=== PATIENT | male | born 1990 | race Hispanic/Latino ===

== ENCOUNTER 2024-12-16 12:19 | Emergency (ER) | payer OTHER, SELFPAY ==
[2024-12-16] VITALS (31 sets, daily range): BP systolic 131–146; BP diastolic 85–100; PULSE 65–79; RESP 16–20; TEMP 36.5–36.9; O2SAT 97–100
--- NOTE | ~2024-12-16 | CT_ITS ---
EXAMINATION: CT abdomen pelvis w con DATE: 12/16/2024 17:26 INDICATION: epigastric abd pain, N/V/D TECHNIQUE: Computed tomography (CT) of the abdomen and pelvis was performed with 100 mL Omnipaque-350 intravenous contrast. Automated exposure control and iterative reconstruction technique were employe d. The dose-length product was 436.45 mGy-cm. COMPARISON: None. FINDINGS: Lower thorax: Coronary artery calcification. Liver: Right lobe hemangioma. Biliary/Gallbladder: Gallbladder is normal. No bile duct dilation. Pancreas: No mass or duct dilation. Spleen: Normal. Adrenals:No mass. Kidneys: No suspicious mass, obstructing stone, or hydronephrosis. GI tract: Mild distal esophageal and moderate antral wall edema. No small or large bowel dilation. No rmal appendix. Diverticulosis without diverticulitis. Mesentery/Peritoneum: No ascites, mass, or free air. Retroperitoneum: No mass. Pelvis: Pelvic organs are within normal limits. Soft Tissues: Small uncomplicated fat-containing umbilical and bilateral inguinal hernias. Bones: No acute osseous finding. IMPRESSION: Coronary artery calcification, to a degree greater than expected for age. Mild esophagitis. Moderate antral gastritis. Extensive diverticulosis without CT evidence of diverticulitis. Reviewed, dictated and finalized at location K.
--- NOTE | 2024-12-16 13:39 | ED.ABDPAIN ---
HPI - Abdominal Pain General Chief Complaint: Abdominal Pain Stated Complaint: Abd pain, N/V/D Time Seen by Provider: 12/16/24 13:09 History of Present Illness HPI narrative: 34-year-old male with a past medical history including hypertension and hyperlipidemia presenting to the emergency room with epigastric abdominal pain, nausea vomiting as well as body aches and headache for last 2 days. Family members have been sick with nausea and vomiting. Patient denies any chest pain shortness a breath. States that his symptoms have been going on for last 2 days but today he got worsening epigastric abdominal pain. Endorses taking NSAIDs for his headache as well as social alcohol use but no history of alcoholism. Denies any abdominal surgical history. No history of gallbladder disease or gallstones. Related Data Allergies Allergy/AdvReac Type Severity Reaction Status Date / Time No Known Allergies Allergy Verified 12/16/24 12:20 Review of Systems Review of Systems: As reviewed above in HPI Exam Narrative: GENERAL: [Well-appearing, well-nourished, and in no acute distress.] HEAD: [Normocephalic, atraumatic.] EYES: [PERRLA and EOMI.] ENT: Nares clear, no rhinorrhea or epistaxis. Mucous membranes moist. NECK: Supple. CHEST: [Clear to auscultation. No respiratory distress.] HEART: [Regular rate and rhythm]. No murmur heard. [Normal peripheral pulses.] ABDOMEN: [Soft, nondistended], tender to palpation in the epigastrium, negative Mcnally sign, [No rigidity or guarding] EXTREMITIES: Normal range of motion. [No edema.] SKIN: Warm, dry, no rash. NEURO: [No focal deficits]. Alert and oriented [x3.] PSYCH: [Normal mood and affect.] Course Vital Signs Vital signs: Vital Signs Temperature 36.5 C 12/16/24 12:28 Pulse Rate 79 12/16/24 12:28 Respiratory Rate 20 12/16/24 12:28 Blood Pressure 146/100 H 12/16/24 12:28 Pulse Oximetry 98 12/16/24 12:28 Oxygen Delivery Room Air 12/16/24 12:28 Temperature 36.9 C 12/16/24 13:14 Pulse Rate 66 12/16/24 16:45 Respiratory Rate 18 12/16/24 13:14 Blood Pressure 134/87 12/16/24 16:46 Pulse Oximetry 100 12/16/24 19:22 Oxygen Delivery Room Air 12/16/24 12:28 MDM - Abdominal Pain MDM Narrative Medical decision making narrative: 34-year-old male with a past medical history including hypertension hyperlipidemia presenting with epigastric abdominal pain associated nausea vomiting diarrhea and body aches for 2 days. He is otherwise well-appearing not any acute distress and has normal vital signs without any tachycardia, fever or hypoxia. Family members have had recent diarrheal illness as well. He has a soft nondistended abdomen with minimal tenderness in the epigastrium. He is otherwise not any acute distress. Considerations presently are for gastritis, gastroenteritis, peptic ulcer disease, cholecystitis, cholelithiasis, COVID or influenza. Workup was ordered including CBC, CMP, lipase. Patient will be treated symptomatically and re-evaluated. He was given a combination of Pepcid, Toradol, Maalox and Zofran. Fluid bolus provided. Patient was re-evaluated and still having some pain for which morphine was provided as well as Protonix. He had improvement afterwards. Reassuring vital signs and workup. Workup shows no leukocytosis or anemia. Normal platelet count. Electrolytes largely within normal limits, normal creatinine, normal glucose, normal LFTs. Normal lipase. Urinalysis with some ketosis but no signs of infection. Negative viral panel. CT of the abdomen and pelvis was ordered secondary to patient's pain requiring morphine. CT shows esophagitis and gastritis, extensive diverticulosis without diverticulitis as well as some coronary artery calcification. An EKG was obtained at this time which shows no acute occlusive event or concerning features. Given patient's improvement in pain control and otherwise unremarkable workup he is safe and stable for discharge home at this time with prescription medications in controls gastritis and esophagitis symptoms. Patient was given return precautions and PCP follow-up instructions. Medical Records Attestation: I reviewed the patient's medical records. Lab Data Attestation: I reviewed the patient's lab results. 12/16/24 13:21 12/16/24 13:21 Labs: Lab Results 12/16/24 12/16/24 12/16/24 Range/Units 13:21 13:32 13:51 WBC 5.6 (4.5-10.0) K/mm3 RBC 4.75 (4.6-6.20) M/mm3 Hgb 15.0 (14.0-18.0) g/dL Hct 42.9 (42.0-52.0) % MCV 90.3 (80-100) fl MCH 31.6 (26-34) pg MCHC 35.0 (32-36) g/dl RDW 12.6 (11.5-14.5) % Plt Count 240 (150-375) k/mm3 MPV 10.2 (7.4-10.4) fl Immature Gran % (Auto) 0.4 (0-0.5) % Neut % (Auto) 83.4 H (45.5-73.1) % Lymph % (Auto) 12.2 L (18.3-44.2) % [place] % (Auto) 3.8 (2.6-8.5) % Eos % (Auto) 0.0 (0-4.4) % Baso % (Auto) 0.2 (0.2-1.2) % Lymph # (Auto) 0.68 L (0.9-3.2) K/mm3 [place] # (Auto) 0.2 (0.1-0.6) K/mm3 Eos # (Auto) 0.0 (0-0.3) K/mm3 Baso # (Auto) 0.0 (0.0-0.1) K/mm3 Abs Immat Gran (auto) 0.02 (0.00-0.031) K/mm3 Absolute Neuts (auto) 4.7 (1.3-6.7) K/mm3 Absolute Nucleated RBC 0.000 (0.0-0.012) K/mm3 Nucleated RBC % 0.0 (0.0-0.2) % Sodium 137 (137-145) mmol/L Potassium 3.7 (3.4-5.0) mmol/L Chloride 97 L (98-107) mmol/L Carbon Dioxide 27 (22-30) mmol/L Anion Gap 13 H (4-12) mmol/L BUN 22 H (9-20) mg/dL Creatinine 1.06 (0.7-1.3) mg/dL Estim Creat Clear Calc 79 ml/min Estimated GFR > 60 (59 - ) Glucose 144 H (65-110) mg/dL Calcium 9.6 (8.4-10.2) mg/dL Total Bilirubin 1.0 (0.2-1.3) mg/dL AST 32 (17-59) U/L ALT 31 (6-50) U/L Alkaline Phosphatase 73 (38-126) U/L Total Protein 9.0 H (6.3-8.2) g/dL Albumin 5.0 (3.5-5.1) g/dL Lipase 37 (23-300) U/L Urine Color Yellow (Yellow) Urine Appearance Clear (Clear) Urine pH 5.5 (5.0-9.0) Ur Specific [place] 1.032 (1.001-1.035) Urine Protein 1+ H (Negative) mg/dL Urine Glucose (UA) Negative (Negative) mg/dL Urine Ketones 2+ H (Negative) mg/dL Ur Blood (Man) Negative (Negative) Urine Nitrate Negative (Negative) Urine Bilirubin Negative (Negative) Urine Urobilinogen 0.2 (<2.0) mg/dL Add Ur Microanalysis Reviewed Leukocyte Esterase Rfl Negative (Negative) THEA/UL Urine RBC 6-10 H (0-2) /hpf Urine WBC 0-5 (0-3) /hpf Ur Squamous Epith Cells None seen (Few) /hpf Urine Bacteria None seen /hpf Urine Casts 0-2 Influenza A (RT-PCR) Negative (Negative) Influenza B (RT-PCR) Negative (Negative) SARS-CoV-2 RNA (RT-PCR) Negative (Negative) Imaging Data Attestation: I personally reviewed and interpreted this imaging study as follows: My impression: Impressions Abdomen/Pelvis CT 12/16/24 17:50 IMPRESSION: Coronary artery calcification, to a degree greater than expected for age. Mild esophagitis. Moderate antral gastritis. Extensive diverticulosis without CT evidence of diverticulitis. Radiologist's impression: ITS Impressions Abdomen/Pelvis CT 12/16/24 17:50 IMPRESSION: Coronary artery calcification, to a degree greater than expected for age. Mild esophagitis. Moderate antral gastritis. Extensive diverticulosis without CT evidence of diverticulitis. ECG Data EKG #1: Interpretation: No ST segment elevations, depressions or contiguous inversions. No previous EKG for comparison. Regular rate, regular rhythm and axis. QTC 377, QRS 101, DE interval 149. Rate of 64 beats per minute. Overall normal sinus rhythm, no signs of acute ischemic event. Discharge Plan Discharge Clinical Impression: Gastritis, Esophagitis Patient Disposition: Home, Self-Care Condition: Stable Instructions: Antibiotic Form, Gastritis (DC), Diet for Stomach Ulcers and Gastritis (ED), Esophagitis (ED) Additional Instructions: Your CT scan shows gastritis and esophagitis which is inflammation and acid buildup in the esophagus and stomach lining. No obstruction process, no infection. you have some coronary artery calcifications but your EKG is reassuring as well as your laboratory studies. We will send you home with a combination medications to try to control the pain in your epigastric region that is likely from your stomach inflammation and stomach acid. Follow-up with regular doctor, you might end up needing to be seen by a international trade manager outpatient if this is persistent. Return with any new or worsening concerns at any time. Patient Language: Citizen Of [place] Prescriptions: New famotidine [Pepcid] 20 mg tablet 20 mg PO BID Qty: 20 0RF alum-mag hydroxide-simeth [Maalox Advanced] 200-200-20 mg/5 mL suspension 15 ml PO QID PRN (Reason: indigestion) Qty: 3000 0RF Rx Instructions: administer between meals and at bedtime ondansetron 4 mg tablet,disintegrating 4 mg PO Q8H PRN (Reason: nausea and vomiting) Qty: 10 0RF pantoprazole [Protonix] 40 mg tablet,delayed release (DR/EC) 40 mg PO HS 28 Days Qty: 28 0RF Follow-up/Referrals: PHYSICIAN NOT ON STAFF,NONSTAFF [Primary Care Provider] - Time of Disposition: 19:57
[2024-12-16 13:44] LABS: Basophils Percent Auto 0.2 % (0.2-1.2); Hematocrit 42.9 % (42.0-52.0); Immature Granulocyte Absolute 0.02 K/mm3 (0.00-0.031); Immature Granulocyte Percent A 0.4 % (0-0.5); Lymphocytes Absolute Auto 0.68 K/mm3 (0.9-3.2); Lymphocytes Percent Auto 12.2 % (18.3-44.2); Mean Corpuscular Hemoglobin 31.6 pg (26-34); Mean Corpuscular Volume 90.3 fl (80-100); Mean Platelet Volume 10.2 fl (7.4-10.4); Monocytes Absolute Auto 0.2 K/mm3 (0.1-0.6); Monocytes Percent Auto 3.8 % (2.6-8.5); Neutrophils Absolute Auto 4.7 K/mm3 (1.3-6.7); Neutrophils Percent Auto 83.4 % (45.5-73.1); Platelet Count Result 240 k/mm3 (150-375); Red Blood Count 4.75 M/mm3 (4.6-6.20); Red Cell Distribution Width 12.6 % (11.5-14.5); White Blood Count 5.6 K/mm3 (4.5-10.0)
[2024-12-16] MEDS: KETOROLAC 15 MG/ML VIAL (*BKC) IV PUSH (13:45)
[2024-12-16] MEDS: FAMOTIDINE 20 MG/2 ML VIAL IV PUSH (13:45)
[2024-12-16] MEDS: MAG HYDROX/AL HYDROX/SIMETH 30 ML UDC PO (13:45)
[2024-12-16] MEDS: ONDANSETRON INJ 4 MG/2 ML VIAL IV PUSH (13:45)
[2024-12-16] MEDS: LACTATED RINGERS 1,000 ML 999 ML IV CONT (13:50)
[2024-12-16 14:16] LABS: Influenza A QL RT-PCR Negative (Negative); Influenza B QL RT-PCR Negative (Negative); SARS-CoV-2 RNA PCR Negative (Negative)
[2024-12-16 14:26] LABS: Add Urine Microscopic? YES; Appearance Urine Clear (Clear); Bacteria Urine None Seen /hpf; Bilirubin Urine Negative (Negative); Blood Urine Negative (Negative); Color Urine Yellow (Yellow); Glucose Urine UA Negative (Negative); Ketones Urine 2+ mg/dL (Negative); Leukocyte Esterase Ur Negative LEU/UL (Negative); Need Manual Microscopic Reviewed; Nitrate Urine Negative (Negative); Non Pathogenic Casts 0-2; Protein Urine 1+ mg/dL (Negative); Specific Grav Ur 1.032 (1.001-1.035); Squamous Epithelial Cell Urine None Seen /hpf (Few); Urobilinogen Urine 0.2 mg/dL (<2.0); WBC Urine 0-5 /hpf (0-3); pH Urine 5.5 (5.0-9.0)
[2024-12-16 14:31] LABS: Alanine Aminotransferase 31 U/L (6-50); Alkaline Phosphatase 73 U/L (38-126); Anion Gap 13 mmol/L (4-12); Aspartate Amino Transferase 32 U/L (17-59); Blood Urea Nitrogen 22 mg/dL (9-20); Calcium 9.6 mg/dL (8.4-10.2); Carbon Dioxide 27 mmol/L (22-30); Chloride 97 mmol/L (98-107); Estimated CRCL calculation 79 ml/min; Estimated Glomerular Filt Rate > 60; Glucose 144 mg/dL (65-110); Lipase 37 U/L (23-300); Potassium 3.7 mmol/L (3.4-5.0); Sodium 137 mmol/L (137-145)
[2024-12-16] MEDS: MORPHINE SULFATE (*CRX) 4 MG/ML INJ IV PUSH ×2 (14:37→16:53)
--- OUTSIDE RECORDS SUMMARY | 2024-12-16 16:33 | XMS_ITS | Continuity of Care Document ---
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 It does not include entries that were removed or entered in error. 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) Active 08/30/2024 Diagnosis 0055C-37 5t h [facility] Bilateral myopia of eyes Active 05/10/2017 Condition 0055C-375t h [facility] Bilateral regular astigmatism Active 05/10/2017 Condition 0055C-375t h [facility] Myopia Active 05/10/2017 Condition 0055C-375t h [facility] Regular astigmatism Active 05/10/2017 Condition 0055C-375t h [facility] Regular astigmatism, bilateral Active 05/10/2017 Condition DoD Myopia, bilateral Active 05/10/2017 Condition D oD Alcohol consumption screening Active Condition 0055C-375t h [facility] ASSESSMENT, POST DEPLOYMENT, DOCUMENTED ON [id number] (PDHRA) Active Condition 0055C-375t h [facility] Astigmatism Active Condition 0055C-375t h [facility] [place] I diagnosis Active Condition 0055C -375t h [facility] [place] II diagnosis Active Condition 0055 C-375t h [facility] Blurry vision Active Condition 0055C-37 5t h [facility] Chondromalacia of patella Active Condition 0055C-375t h [facility] Consultation Active Condition 0055C-375 t h [facility] Cough Active Condition 0055C-375t h [facility] Disorder of refraction Active Condition 0055C-375t h [facility] Elevated blood pressure Active Condition 0055C-375t h [facility] Environmental allergy Active Condition 0055C-375t h [facility] Gastroenteritis Active Condition 0055C- 375t h [facility] Hearing examination Active Condition 00 55C-375t h [facility] History and physical examination, occupation Active Condition 0055C-375t h [facility] History of multiple allergies Active Condition 0055C-375t h [facility] Knee pain Active Condition 0055C-375t h [facility] Laboratory test Active Condition 0055C- 375t h [facility] Low back pain Active Condition DoD Nicotine dependence Active Condition 00 55C-375t h [facility] Overweight Active Condition 0055C-375t h [facility] Pain of joint of knee Active Condition 0055C-375t h [facility] Patient condition assessed Active Condition 5C-375t h [facility] Patient education Active Condition 0055 C-375t h [facility] Psychological finding Active Condition 5C-375t h [facility] Segmental and somatic dysfunction Active Condition 0055C -375t h [facility] Sprain of left ankle Active Condition 0 055C-375t h [facility] Upper respiratory infection Active Condition 0055C-375t h [facility] Segmental and somatic dysfunction of sacral region Active Condition DoD Segmental and somatic dysfunction of lumbar region Active Condition DoD Segmental and somatic dysfunction of thoracic region Active Condition DoD Segmental and somatic dysfunction of pelvic region Active Condition DoD 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 Active Condition DoD ankle sprain left Active Condition DoD 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 DoD 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 documented on [id number] Active Condition DoD nicotine dependence Active Condition Do D overweight Active Condition DoD gastroenteritis Active Condition DoD open wound of the head - scalp Inactive Condition DoD astigmatism regular Active Condition Do D visit for: ears / hearing 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 DoD visit for: occupational health / fitness 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 DoD Outpatient Physician Consultation Active Condition DoD joint pain, localized in the knee Active Condition DoD Blood Pressure Isolated Elevated Active Condition DoD dermatophytosis tinea capitis Inactive Condition [facility] patellar chondromalacia Active Condition DoD location of accident - home Inactive Condition DoD accident caused by object Inactive Condition DoD crush injury right hand Inactive Condition DoD open wound of the upper extremity Inactive Condition DoD refractive error - myopia Active Condition DoD astigmatism Active Condition DoD assessment of patient condition work-related Active Condition DoD refractive error Active Condition DoD visit for: services physical pre-deployment Active Condition DoD open wound fingers left index Inactive Condition [facility] visit for: administrative purpose Active Condition DoD pharyngitis Inactive Condition DoD cough Active Condition DoD Vomiting Inactive Condition DoD conjunctivitis acute right eye Inactive Condition DoD visit for: laboratory Inactive Condition DoD Laboratory Studies Active Condition DoD visit for: services physical Active Condition DoD no psychiatric diagnosis on axis II Active Condition DoD no psychiatric diagnosis or condition on axis I Active Condition DoD visit for: screening exam alcoholism Active Condition DoD upper respiratory infection Active Condition DoD multiple environmental allergies Active Condition DoD Patient Education Active Condition DoD Medications Combined list of outpatient medications from Department of Defense and 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Medications provided include 1) outpatient medications from the last 15 months, and 2) patient-reported medications. Medication Details Route Status Patient Instructions Prescription Expires Prescription Number Last Dispense Date Ordering Provider Order Date Order Qty Source Cipro 500 mg or Placebo Tablet Oral Finish the prescrip tion.Do not take with milk, antacids , or iron.Dc e with plenty of water.Av oid exposure to sun.Chec k with your doctor before becoming . 11/05/2024 [id number] 4 [address] [facility] Blake [facility] ([facility]) CRESTOR (BRAND) 20 MG ORAL TAB Do not take with milk, antacids , or iron.Dc e or use exactly as directed .Do not take if . Active 12/25/2024 [id number] 4 [address] [place] [address] Blake [facility]) CRESTOR (BRAND) 20 MG ORAL TAB Do not take with milk, antacids , or iron.Dc e or use exactly as directed .Do not take if . 02/12/2024 [id number] 3 [address] [place] [address] Blake DOVER [facility]) Potassium Iodide (Iosat Eq.) Tablet 130 mg Miscellaneo us Check with your doctor before becoming . 11/05/2024 [id number] 4 [address] [place] [address] Blake [facility]) Pyridostigm ine [place] (P-Tabs) Tablet 30 mg Oral Check with your doctor before becoming .Store in original package. 11/05/2024 [id number] 4 [address] [place] [address] Blake [facility] ([facility]) Allergies, Adverse Reactions, Alerts Combined list of allergies from Department of Defense and 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 It does not include entries that were removed or entered in error. Substance Category Reaction Severity Reaction type Status Date Reported Comments Source No Known Allergies Drug allergy (disorder) active 06/19/[address] [place] [address] Immunizations Combined list of available immunizations from the Department of Defense and 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 complet ed anthrax vaccine 10/25/23 Given 0055C-3 [facility] measles/mumps /rubella virus vaccine 2023 ETHANJPOCKLIN GTON Shoul maya, right (delt oid) [id number] Merck & Company Inc complet ed measles/m umps/rube lla virus vaccine 10/25/23 Given 0055C-3 [facility] influenza virus vaccine, inactivated 2022 ETHANJPOCKLIN GTON Shoul maya, right (delt oid) [id number] 150 [employer] complet ed influenza virus vaccine, inactivat ed 07/25/23 Given 0055C-3 [facility] influenza virus vaccine, inactivated 2021 NERY Abernathy maya, left (delt oid) [id number] 150 [employer] Joaquin complet ed influenza virus vaccine, inactivat ed 10/05/22 Given 0117C-A F-ASU-[address] [facility] land influenza, injectable, quadrivalent- pf 2020 FANNY CEE [id number] 150 complet ed Result Comment: Route: Unknown Manufactu rer: [facility] ([facility] 0055C-3 [facility] Influenza, injectable, quadrivalent, preservative free 1 2020 [id number] 150 [facility] ([facility]) complet ed Influenza , injectabl e, quadrival ent, preservat sunny free DoD COVID Vaccine Pfizer 2020 [id number] PFI[employer] complet ed COVID Vaccine Pfizer 01/06/21 Given Ambulat ory Pharmac y SARS-COV-2 (COVID-19) vaccine, mRNA, spike protein, LNP, preservative free, 30 mcg/0.3mL dose 2 2020 [id number] Pfizer, Inc (PFR) complet ed SARS-COV- 2 (COVID-19 ) vaccine, mRNA, spike protein, LNP, preservat sunny free, 30 mcg/0.3mL dose DoD COVID Vaccine Pfizer 2020 [id number] 208 PFIZER complet ed COVID Vaccine Pfizer 12/16/20 Given Ambulat ory Pharmac y SARS-COV-2 (COVID-19) vaccine, mRNA, spike protein, LNP, preservative free, 30 mcg/0.3mL dose 1 2020 [id number] 208 Pfizer, Inc (PFR) complet ed SARS-COV- 2 (COVID-19 ) vaccine, mRNA, spike protein, LNP, preservat sunny free, 30 mcg/0.3mL dose DoD influenza virus vaccine, inactivated 2019 [id number] [employer] complet ed influenza virus vaccine, inactivat ed 07/31/20 Given Ambulat ory Pharmac y Influenza, injectable, Madin Pomeroy Canine Kidney, quadrivalent with preservative 1 2019 [id number] 186 [employer] (SEQ) comple t ed Influenza , injectabl e, Madin Pomeroy Canine Kidney, quadrival ent with preservat sunny DoD influenza, injectable, quadrivalent- pf 2018 [id number] 150 [employer] complet ed influenza , injectabl e, quadrival ent-pf 08/29/19 Given Ambulat ory Pharmac y Influenza, injectable, quadrivalent, preservative free 0 2018 [id number] 150 [employer] (SEQ) complet ed Influenza , injectabl e, quadrival ent, preservat sunny free DoD tetanus-dipht h toxoids (Td) adult/adol 2018 Body, whole [id number] 09 [place] [employer] complet ed tetanus-d iphth toxoids (Td) adult/ado l 02/20/19 Given Ambulat ory Pharmac y tetanus and diphtheria toxoids, adsorbed, preservative free, for adult use (2 Lf of tetanus toxoid and 2 Lf of diphtheria toxoid) 1 2018 JAH DOTY [id number] 09 [facility] [employer] ([facility]) complet ed tetanus and diphtheri a toxoids, adsorbed, preservat sunny free, for adult use (2 Lf of tetanus toxoid and 2 Lf of diphtheri a toxoid) DoD influenza, injectable, quadrivalent- pf 2017 [id number] 150 [employer] complet ed influenza , injectabl e, quadrival ent-pf 07/11/18 Given Ambulat ory Pharmac y Influenza, injectable, quadrivalent, preservative free 11 2017 [id number] 150 [employer] (SEQ) comple t ed Influenza , injectabl e, quadrival ent, preservat sunny free DoD influenza, injectable, quadrivalent- pf 2016 [id number] 150 GlaxoSmithKli ne complet ed influenza , injectabl e, quadrival ent-pf 07/11/17 Given Ambulat ory Pharmac y Influenza, injectable, quadrivalent, preservative free 0 2016 [id number] 150 SmithKline (SKB) complet ed Influenza , injectabl e, quadrival ent, preservat sunny free DoD influenza, injectable, quadrivalent 2015 [id number] 158 GlaxoSmithKli ne complet ed influenza , injectabl e, quadrival ent 07/19/16 Given Ambulat ory Pharmac y influenza, injectable, quadrivalent, contains preservative [address] [place] [address] [employer] (B) complet ed influenza , injectabl e, quadrival ent, contains preservat sunny DoD influenza, seasonal, injectable-pf 2014 [id number] 140 CSL Behring complet ed influenza , seasonal, injectabl e-pf 07/14/15 Given Ambulat ory Pharmac y Influenza, seasonal, injectable, preservative free 8 2014 [id number] 140 [facility] [employer] (CSL) complet ed Influenza , seasonal, injectabl e, preservat sunny free DoD influenza, seasonal, injectable-pf 2013 [id number] 140 Novartis Pharmaceutica ls complet ed influenza , seasonal, injectabl e-pf 08/04/14 Given Ambulat ory Pharmac y Influenza, seasonal, injectable, preservative free 7 2013 [id number] 140 Novartis Pharmaceutica l Joaquin. (NOV) complet ed Influenza , seasonal, injectabl e, preservat sunny free DoD typhoid Vi capsular polysaccharid e vac 2012 [id number] 101 sanofi pasteur complet ed typhoid Vi capsular polysacch aride vac 08/05/13 Given Ambulat ory Pharmac y anthrax vaccine 2012 [id number] 24 [employer] complet ed anthrax vaccine 08/05/13 Given Ambulat ory Pharmac y anthrax vaccine 4 2012 [id number] 24 [employer] [place] ([facility]) complet ed anthrax vaccine DoD typhoid Vi capsular polysaccharid e vaccine 2 2012 D1673-7 101 Sanofi Pasteur (PMC) complet ed typhoid Vi capsular polysacch aride vaccine DoD influenza, seasonal, injectable-pf 2012 [id number] 140 sanofi pasteur complet ed influenza , seasonal, injectabl e-pf 05/31/13 Given Ambulat ory Pharmac y Influenza, seasonal, injectable, preservative free 0 2012 [id number] 140 Sanofi Pasteur (PMC) complet ed Influenza , seasonal, injectabl e, preservat sunny free DoD measles virus vaccine 0 2012 05 () Not Given measles virus vaccine DoD rubella virus vaccine 0 2012 06 () Not Given rubella virus vaccine DoD influenza, seasonal, injectable-pf 2011 [id number] 140 sanofi pasteur complet ed influenza , seasonal, injectabl e-pf 06/05/12 Given Ambulat ory Pharmac y Influenza, seasonal, injectable, preservative free 0 2011 [id number] 140 Sanofi Pasteur ([facility]) complet ed Influenza , seasonal, injectabl e, preservat sunny free DoD influenza, seasonal, injectable 2010 [id number] 141 sanofi pasteur complet ed influenza , seasonal, injectabl e 06/22/11 Given Ambulat ory Pharmac y Influenza, seasonal, injectable 4 2010 [id number] 141 Sanofi Pasteur ([facility]) complet ed Influenza , seasonal, injectabl e DoD anthrax vaccine 2010 [id number] 24 [employer] complet ed anthrax vaccine 02/04/11 Given Ambulat ory Pharmac y anthrax vaccine 3 2010 [id number] 24 [employer] [place] (MIP) complet ed anthrax vaccine DoD anthrax vaccine 2009 [id number] 24 [employer] complet ed anthrax vaccine 08/31/10 Given Ambulat ory Pharmac y anthrax vaccine 2 2009 [id number] 24 [employer] [place] (MIP) complet ed anthrax vaccine DoD influenza virus vaccine, live 2009 [id number] 111 [facility] t ed influenza virus vaccine, live 07/21/10 Given Ambulat ory Pharmac y vaccinia (smallpox) vaccine 2009 VV04-00 3A 75 [employer] complet ed vaccinia (smallpox ) vaccine 07/21/10 Given Ambulat ory Pharmac y typhoid Vi capsular polysaccharid e vac 2009 [id number] 101 sanofi pasteur complet ed typhoid Vi capsular polysacch aride vac 07/21/10 Given Ambulat ory Pharmac y anthrax vaccine 2009 [id number] 24 [employer] complet ed anthrax vaccine 07/21/10 Given Ambulat ory Pharmac y anthrax vaccine 1 2009 [id number] 24 [employer] [place] (MIP) complet ed anthrax vaccine DoD vaccinia (smallpox) vaccine 1 2009 VV04-00 3A 75 [facility] complet ed vaccinia (smallpox ) vaccine DoD typhoid Vi capsular polysaccharid e vaccine 1 2009 [id number] 101 Sanofi Pasteur ([facility]) complet ed typhoid Vi capsular polysacch aride vaccine DoD influenza virus vaccine, live, attenuated, for intranasal use 1 2009 [id number] 111 [employer] (MED) complet ed influenza virus vaccine, live, attenuate d, for intranasa l use DoD Novel influenza-H1N 1-09, injectable 2009 [id number] 127 Novartis Pharmaceutica ls complet ed Novel influenza -S2V5-54, injectabl e 10/20/09 Given Ambulat ory Pharmac y Novel influenza-H1N 1-09, injectable 1 2009 [id number] 127 Novartis [employer] Joaquin. (NOV) complet ed Novel influenza -R4U9-43, injectabl e DoD influenza virus vaccine, live 2008 [id number] 111 [employer] comple t ed influenza virus vaccine, live 08/05/09 Given Ambulat ory Pharmac y influenza virus vaccine, live, attenuated, for intranasal use 1 2008 [id number] 111 [employer] (MED) complet ed influenza virus vaccine, live, attenuate d, for intranasa l use DoD Hep A, pediatric, unspecified formul 2008 [id number] [id number] 31 GlaxoSmithKli ne complet ed Hep A, pediatric , unspecifi ed formul 07/30/09 Given Ambulat ory Pharmac y hepatitis A vaccine, pediatric dosage, unspecified formulation 2 2008 [id number] 7BA 31 SmithKline (SKB) complet ed hepatitis A vaccine, pediatric dosage, unspecifi ed formulati on DoD Hep A, pediatric, unspecified formul 2008 [id number] 0AA 31 GlaxoSmithKli ne complet ed Hep A, pediatric , unspecifi ed formul 01/28/09 Given Ambulat ory Pharmac y measles, mumps and rubella virus vaccine 1 2008 03 () Not Given measles, mumps and rubella virus vaccine DoD varicella virus vaccine 1 2008 21 () Not Given varicella virus vaccine DoD hepatitis A vaccine, pediatric dosage, unspecified formulation 1 2008 [id number] 0AA 31 [employer]Kline (SKB) complet ed hepatitis A vaccine, pediatric dosage, unspecifi ed formulati on DoD hepatitis B vaccine, unspecified formulation 1 2008 45 () Not Given hepatitis B vaccine, unspecifi ed formulati on DoD tuberculin purified protein derivative 2008 [id number] 96 sanofi pasteur complet ed tuberculi n purified protein derivativ e 01/25/09 Given Ambulat ory Pharmac y meningococcal A,C,Y,W-135 (MCV4P) 2008 [id number] 114 sanofi pasteur complet ed meningoco ccal A,C,Y,W-1 35 (MCV4P) 01/22/09 Given Ambulat ory Pharmac y poliovirus vaccine, inactivated 2008 [id number] 10 sanofi pasteur complet ed polioviru s vaccine, inactivat ed 01/22/09 Given Ambulat ory Pharmac y tetanus, diphtheria, acellular pertu is 2008 [id number] 1AB 115 [facility] tetanus, diphtheri a, acellular pertussis 01/22/09 Given Ambulat ory Pharmac y influenza virus vaccine,split 2008 [id number] 15 sanofi pasteur complet ed influenza virus vaccine,s plit 01/22/09 Given Ambulat ory Pharmac y poliovirus vaccine, inactivated 1 2008 [id number] 10 Sanofi Pasteur ([facility]) complet ed polioviru s vaccine, inactivat ed DoD influenza virus vaccine, split virus (incl. purified surface antigen)-reti red CODE 1 2008 [id number] 15 Sanofi Pasteur ([facility]) complet ed influenza virus vaccine, split virus (incl. purified surface antigen)- retired CODE DoD meningococcal polysaccharid e (groups A, C, Y and W-135) diphtheria toxoid conjugate vaccine (MCV4P) 1 2008 [id number] 114 Sanofi Pasteur ([facility]) complet ed meningoco ccal polysacch aride (groups A, C, Y and W-135) diphtheri a toxoid conjugate vaccine (MCV4P) DoD tetanus toxoid, reduced diphtheria toxoid, and acellular pertu is vaccine, adsorbed 1 2008 [id number] 115 [facility] (SKB) complet ed tetanus toxoid, reduced diphtheri a toxoid, and acellular pertussis vaccine, adsorbed DoD Results Combined list of recent chemistry, hematology and other laboratory results from Department of Defense and Veterans Affairs, ranging from 15 months to all on record, depending upon the facility. Order Name Results Value Reference Range Date Interpretation Specimen Comments Source Miscellan eous Sendouts Repository Sample Received ( 4 7:40 AM) 08/08 N 5600A-U [facility] Chemistry Albumin 4.70 g/dL 3.50 - 5.20 12/28 N 0055A-3 [facility] [place] Chemistry Alk Phos 72 U/L 40 - 150 12/28 N 0055A-3 [facility] [place] Chemistry ALT 33 U/L 5 - 55 12/28 N 0055A-3 [facility] Chemistry AST 26 U/L 5 - 34 12/28 N 0055A-[address] [place] [address]- [place] Chemistry Bilirubin Direct 0.2 mg/dL 0.1 - 0.5 12/28 N 0055A-3 [facility] [place] Chemistry Bilirubin Total 0.7 mg/dL 0.2 - 1.2 12/28 N 0055A-3 [facility] [place] Chemistry Protein Total 8.6 g/dL 6.4 - 8.3 12/28 H 5A-3 [facility] Chemistry Ur Microalbumi n 5 mg/L 12/28 N Interpretiv e Data: To minimize intra-indiv idual variation, analysis of three random urine samples collected over the course of a week has also been recommended . 0055A-3 [facility] Chemistry Ur Microalb/Ur Creat Ratio 4 mg/gCr 12/28 N 0055A-3 [facility] [place] Chemistry Ur Creat 125 mg/dL 12/28 0055A-3 [facility] [place] Hematolog y Neutro Absolute 2.5 x10^3/mc L 2.0 - 7.0103 12/28 N 0055A-3 [facility] [place] Hematolog y Monocyte % Auto 6 % 1 - 12 12/28 N 0055A-3 [facility] Hematolog y Neutrophil % Auto 54.9 % 46.0 - 77.0 12/[address] [place] [address] Hematolog y Eosinophil % Auto 1 % 0 - 5 12/28 N [facility] Hematolog y Eos Absolute 0.0 x10^3/mc L 0.0 - 0.7103 12/[address] [place] [address]- [place] Hematolog y Lymph Absolute 1.7 x10^3/mc L 1.2 - 4.0103 12/[address] [place] [address]- [place] Hematolog y Lymphocyte % Auto 37.3 % 20.0 - 40.0 12/[address] [place] [address] Hematolog y [place] Absolute 0.3 x10^3/mc L 0.2 - 0.8103 12/[address] [place] [address] Hematolog y Basophil % Auto 0.4 % 0.0 - 2.5 12/[address] [place] [address]- [place] Hematolog y Baso Absolute 0.0 x10^3/mc L 0.0 - 0.1103 12/[address] [place] [address] Chemistry HDL Cholesterol 59 mg/dL 40 - 59 12/28 N Interpretiv e Data: HDL (HIGH DENSITY LIPOPROTEIN ): ADULTS: Low: < 40 mg/dL High: >/= 60 mg/dL AGES 0 -19: Low: < 40 mg/dL Borderline Low: 40 - 45 mg/dL Acceptable: > 45 mg/dL [address] [place] [address] Chemistry Cholesterol Total 217 mg/dL 12/28 H Interpretiv e Data: According to the [employer] : AGES 0-19: Desirable: < 170 mg/dL Borderline High: 170-199 mg/dL High Blood Cholesterol : >/= 200 mg/dL ADULTS: Desirable < 200 mg/dL Borderline High: 200-239 mg/dL High Blood Cholesterol : >/= 240 mg/dL [address] [place] [address] Chemistry LDL 130 mg/dL 100 - 130 12/28 N Interpretiv e Data: AGES 0-19: Desirable: < 110 mg/dL Borderline High: 110-129 mg/dL High: >/= 130 mg/dL ADULTS: Desirable: <100 mg/dL Near/above optimal: 100-130 mg/dL Borderline High: 131-159 mg/dL High: 160-189 mg/dL Very High: 190 mg/dL [address] [place] [address] Chemistry Chol/HDL 4 mg/dL 12/[address] [place] [address] Chemistry LDL/HDL 2 12/[address] [place] [address] Chemistry Triglycerid es 149 mg/dL 7 - 149 12/28 N Interpretiv e Data: AGES 0-9: Desirable: < 75 mg/dL Borderline High: 75-99 mg/dL High: >/= 100 mg/dL AGES 10-19: Desirable: < 90 mg/dL Borderline High: 90-129 mg/dL High: >/= 130 mg/dL ADULTS: Desirable: < 150 mg/dL Borderline High: 150-199 mg/dL High: >/= 240 mg/dL Very High: >/= 500 mg/dL [address] [place] [address] Chemistry eAvg Glucose 103 mg/dL 12/[address] [place] [address] Chemistry Hemoglobin A1c 5.2 % 4.0 - 5.6 12/28 N Interpretiv e Data: Normal: 4.0 - 5.6% Increased Risk: 5.7 - 6.4% Diabetic Range: 6.5% For patients without diabetes, the normal range for the hemoglobin A1c test is between 4% and 5.6%. Hemoglobin A1c levels between 5.7% and 6.4% indicate increased risk of diabetes, and levels of 6.5% or higher indicate diabetes. Because studies have repeatedly shown that out-of-cont rol diabetes results in complicatio ns from the disease, the goal for people with diabetes is a hemoglobin A1c less than 7%. The higher the hemoglobin A1c, the higher the risks of developing complicatio ns related to diabetes. If confirmatio n is needed, consider recalling the patient and ordering Hemoglobin Electrophor esis. [address] [place] [address] Chemistry Vitamin D 25 OH 17.3 ng/mL 30.0 - 100.0 12/28 L Interpretiv e Data: Classificat ion of Vitamin D Status: Deficient: <20 ng/mL Insufficien t: 20-29 ng/mL Sufficient: 30-100 ng/mL Possible Toxicity: >100 ng/mL This assay is for the quantitativ e determinati on of total 25 (OH) vitamin D. It is intended as an aid in the determinati on of vitamin D sufficiency . Results should always be interpreted in conjunction with the patient's medical history, clinical presentatio n, and other findings. Testing performed by [facility] k[facility] ce. 5600A-U MIRANDASASade EPILAB Urinalysi s UA Nitrite Negative (12/29/23 9:05 AM) 12/28 N 0055A-[address] [place] [address]- [facility] Urinalysi s UA pH 7.0 *NA* (12/29/23 9:05 AM) 5 - 8 12/28 0055A-3 [facility] Urinalysi s UA Leuk Esterase Negative (12/29/23 9:05 AM) 12/28 N 0055A-[address] [place] [address] Urinalysi s UA Protein Negative mg/dL 12/28 N 0055A-[address] [place] [address]- [facility] Urinalysi s UA RBC TNP 12/28 0055A-[address] [place] [address]- [facility] Urinalysi s UA WBC TNP 12/28 0055A-[address] [place] [address]- [facility] Urinalysi s UA Spec [place] 1.015 1.001 - 1.035 12/28 N 0055A-[address] [place] [address] Urinalysi s UA Urobilinoge n 0.2 E.U./dL 0.2 - 1.0.. 12/28 N 0055A-[address] [place] [address]- [facility] Urinalysi s UA Bili Negative (12/29/23 9:05 AM) 12/28 N 0055A-[address] [place] [address]- [facility] Urinalysi s UA Clarity Clear *NA* (12/29/23 9:05 AM) 12/28 0055A-[address] [place] [address]- [facility] Urinalysi s UA Color Yellow *NA* (12/29/23 9:05 AM) 12/28 0055A-[address] [place] [address] Urinalysi s UA Blood Negative (12/29/23 9:05 AM) 12/28 N 0055A-3 [facility] NASRA Lozano Urinalysi s UA Glucose Negative mg/dL 12/28 N 0055A-3 [facility] MEDKA[facility]- [place] Urinalysi s UA Ketones Negative mg/dL 12/28 N 0055A-3 [facility] MIGUEL- [facility] Hematolog y MCHC 34.7 g/dL 33.0 - 36.5 12/28 N 0055A-[address] [place], [place] [address]KANA- Balke Hematolog y MCV 89 fL 80 - 97 12/28 N 0055A-[address] [place] [address]- [facility] Hemat[facility] RBC 5.0 x10^6/mc L 4.0 - 5.6106 12/28 N 0055A-3 [facility] MIGUEL- [facility] Hematolog y RDW 12.0 % 11.0 - 14.9 12/28 N 0055A-[address] [place], [place] [address]BRANDT Lozano Hematolog y MPV 9.8 fL 7.4 - 10.4 12/28 N 0055A-[address] [place], [place] [address]Kaleb Lozano Hematolog y Platelets 258.0 x10^3/mc L 150.0 - 450.0103 12/28 N 0055A-[address] [place], [place] [address]KANA- [facility] Hematolog y Hematocrit 45 % 40 - 49 12/28 N 0055A-[address] [place], [place] [address]Kaleb Lozano Hematolog y Differentia l? Auto (12/29/23 9:05 AM) 12/28 N 0055A-3 [facility] NASRA Lozano Hematolog y MCH 31 pg 28 - 33 12/28 N 0055A-[address] [place] [address] [facility] Hematolog y Hemoglobin 15.6 g/dL 13.0 - 16.3 12/28 N 0055A-[address] [place], [place] [address]Kaleb Lozano Hematolog y WBC 4.6 x10^3/mc L 4.0 - 11.0103 12/28 N 0055A-[address] [place] [address] [facility] Chemistry BUN/Creat Ratio 19 mg/dL 12 - 20 12/28 N 0055A-[address] [place] [address] [facility] Chemistry Calcium 10.3 mg/dL 8.4 - 10.2 12/28 H 0055A-[address] [place] [address] [facility] Chemistry Chloride 102 mmol/L 98 - 107 12/28 N 0055A-[address] [place] [address] Chemistry CO2 26 mmol/L 22 - 29 12/28 N 0055A-[address] [place] [address] Chemistry Creatinine Level 0.80 mg/dL 0.72 - 1.25 12/28 N 0055A-[address] [place] [address] Chemistry Glucose Lvl 95 mg/dL 74 - 99 12/28 N 0055A-[address] [place] [address] Chemistry Potassium Lvl 4.0 mmol/L 3.5 - 5.1 12/28 N 0055A-[address] [place] [address] Chemistry AGAP 10.00 0.00 - 15.00 12/28 N -[address] [place] [address] Chemistry Albumin 4.70 g/dL 3.50 - 5.20 12/28 N -[address] [place] [address] Chemistry Sodium 138 mmol/L 136 - 145 12/28 N -[address] [place] [address] Chemistry Alk Phos 72 U/L 40 - 150 12/28 N -[address] [place] [address] Chemistry Protein Total 8.6 g/dL 6.4 - 8.3 12/28 H 5A-[address] [place] [address] Chemistry ALT 33 U/L 5 - 55 12/28 N -[address] [place] [address] Chemistry AST 26 U/L 5 - 34 12/28 N -[address] [place] [address] Chemistry Bilirubin Total 0.7 mg/dL 0.2 - 1.2 12/28 N -[address] [place] [address] Chemistry BUN 15 mg/dL 8 - 26 12/28 N 0055A-[address] [place] [address] Chemistry eGFR CKD EPI 120 mL/min/1 .73_m2 12/28 Interpretiv e Data: Estimated Glomerular Filtration Rate (eGFR) calculated using the 2020 Chronic Kidney Disease-Epi demiology (CKD-EPI) Collaborati on creatinine equation; units of measure are mL/min/1.73 m2. Results are only valid for adults (>=18 years) whose serum creatinine is in steady state. eGFR calculation s are not valid for patients with acute kidney injury and for patients on dialysis. Creatinine- based estimates of kidney function may also be inaccurate in patients with reduced creatinine generation due to decreased muscle mass (e.g., malnutritio n, severe hypoalbumin emia, sarcopenia, chronic neuromuscul ar disease, amputations , severe heart failure or liver disease) and in patients with increased creatinine generation due to increased muscle mass (e.g., muscle builders, anabolic steroids) or increased dietary intake. CKD is diagnosed based on abnormaliti es of kidney structure or function, present for >3 months, with implication s for health and disease. CKD is classified and staged based on cause, eGFR and albuminuria (quantified as urine albumin to creatinine ratio). An eGFR >60 mL/min/1.73 m2 in the absence of increased urine albumin excretion or structural abnormaliti es does not CKD. eGFR provides only an estimate of measured GFR within +/- 30% for most patients. As mentioned, nutritional status and muscle mass, among many factors, may lead to inaccuracy in the estimate. Consider ordering the creatinine- cystatin C panel if better accuracy is needed for clinical decision-shelli loving. eGFR (mL/min/1.7 3 m2) CKD stage Interpretat ion Normal 60-89 Mild decrease 45-59 Mild to moderate decrease 30-44 Moderate to severe decrease 15-29 Severe decrease <15 Kidney failure 0055A-3 [facility] [place] Immunolog y/Serolog y Thyroid Peroxidase Ab <15 IU/mL 12/28 N Interpretiv e Data: Values above 35 IU/mL are generally associated with autoimmune thyroiditis , but elevations are also seen in other autoimmune diseases. In patients with subclinical hypothyroid ism, the presence of thyroperoxi dase (TPO) antibodies predicts a higher risk of developing overt hypothyroid ism, 4.3% per year versus 2.1% per year in antibody-ne gative individuals . Furthermore , it raises the concern that such patients may be at increased risk of developing other autoimmune diseases, such as adrenal insufficien cy and type 1 diabetes. The frequency of detectable anti-TPO observed in nonimmune thyroid disease is similar to the 10% to 12% observed in a healthy population with normal thyroid function. There is a good association between the presence of autoantibod ies against TPO and histologica l thyroiditis . However, in view of the extensive regenerativ e capacity of the thyroid under the influence of thyroid-sti mulating hormone, chronic thyroid disease may be present for years before the clinical manifestati on of hypothyroid ism becomes evident, if ever. Moderately increased levels of thyroperoxi dase (TPO) antibodies may be found in patients with nonthyroid autoimmune disease such as pernicious anemia, type 1 diabetes, or other disorders that activate the immune system. No reference ranges available for pediatric patients. Methodology : Electrochem iluminescen ce 5600A-U SAFSAM EPILAB Immunolog y/Serolog y Thyroglobul in Ab 13 IU/mL 12/28 N Interpretiv e Data: Measurement s of antithyroid peroxidase (TPO) have higher sensitivity and equal specificity to antithyrogl obulin (anti-Tg) measurement s in the diagnosis of autoimmune thyroid disease. Anti-Tg levels should, therefore, only be measured if anti-TPO measurement s are negative, but clinical suspicion of autoimmune thyroid disease is high. Detection of significant titers of anti-Tg or anti-TPO autoantibod ies is supportive evidence for a diagnosis of Graves' disease in patients with thyrotoxico sis. However, measurement of the pathogenic antithyroid -stimulatin g hormone (TSH) receptor antibodies by binding assay (THYRO / Thyrotropin Receptor Antibody, Serum) or bioassay (TSI / Thyroid-Sti mulating Immunoglobu liliana [TSI], Serum) is the preferred method of confirming Graves' disease in atypical cases and under special clinical circumstanc es. Positive thyroid autoantibod y levels in patients with high-normal or slightly elevated serum thyrotropin levels predict the future development of more profound hypothyroid ism. Patients with thyroiditis with persistentl y elevated thyroid autoantibod y levels have an increased likelihood of permanent hypothyroid ism. In cases of hypothyroid ism, the detection of anti-TPO or anti-Tg in the suggests transplacen verena antibody transfer, particularl y if the mother has a history of autoimmune thyroiditis or detectable thyroid autoantibod ies. The hypothyroid ism is likely to be transient in these cases. Thyroid Cancer Follow-up: Following therapy of differentia radha follicular- cell derived thyroid cancer, patients with no residual thyroid tissue and no persistent or recurrent cancer will have undetectabl e or very low serum Tg levels. Persistentl y elevated or rising serum Tg levels, either on or off thyroxine replacement therapy, suggest possible tumor persistence or recurrence. However, if a patient also has measurable anti-Tg autoantibod y levels, the results of serum Tg measurement s may be unreliable. Anti-Tg may result in both falsely-low and, less commonly, falsely high serum Tg measurement s. Therefore, in anti-Tg-pos itive patients, serum Tg measurement s should not be used as the sole measurement for thyroid cancer follow-up and should be interpreted with caution. No reference ranges available for pediatric patients. Methodology : Electrochem iluminescen ce assay (ECLIA) 5600A-U SAFSAM EPILAB Infectiou s Disease HIV-1/O/2 Non-Reac tive 14 (10/27/23 1:38 PM) 10/27 N Interpretiv e Data: INTERPRETAT ION: This method is a screening procedure for the detection of HIV p24 Antigen and Antibodies to HIV-1, including Group O, and/or HIV-2. NON-REACTIV E: HIV-1 antigen and HIV-1 / HIV-2 antibodies were not detected. No laboratory evidence of HIV infection. A negative test result does not exclude the possibility of exposure to or infection with HIV. HIV antibodies and/or p24 antigen may be undetectabl e in some stages of the infection and in some clinical conditions. If acute HIV infection is suspected, consider submitting another specimen to a reference laboratory for HIV-1 RNA. SCREEN REACTIVE - CONFIRMATIO N TO FOLLOW: Possible presence of HIV-1antibo dies, HIV-2 antibodies and/or HIV-1 p24 antigen. Specimen will reflex to the confirmatio n testing that fulfills the Center for Disease Control and Prevention' s HIV diagnostic algorithm. Refer to [facility] Lab Guide for additional information : https://x. [facility]/ kj/kx5/EPIL ab/Pages/la b_guide.asp x Testing performed by Electrochem iluminescen ce. 5600A-U SAFSAM EPILAB Miscellan eous Sendouts A Titer LC Less than 256. 10/27 0055A-3 [facility] [place] Miscellan eous Sendouts Ab Screen LC Negative 10/27 0055A-3 [facility] Miscellan eous Sendouts Blood Grouping LC O 10/27 Result Comment: Note: In children beyond the age of 6 months and normal adults, isohemagglu tinins will be present which correspond to the absence of A or B antigens on red blood cells. Blood Group: Expected Isohemagglu tinins: O anti-A, anti-B A anti-B B anti-A AB none -3 [facility]- [place] Guzmán eous Sendouts B Titer LC Less than 256. 10/27 Result Comment: The normal titer of anti-A and/or anti-B may vary considerabl y between different individuals and seasonal variations are common. Normal titers will generally not exceed 1:128. Very elevated titers have been reported in a variety of situations including Toxocara infection in children. Absence of the expected isohemagglu tinin(s) in individuals past the age of 6 months is considered abnormal. Performed At: [address] [id number] Ronny Santana MD Ph:[phone] [place], [place] [address]sulma eo Sendouts Repository Sample Received (10/27/23 1:38 PM) 10/27 N 5600A-U CORRIE EPILAB Infectiou s Disease HIV-1/O/2.E PI NON-REAC TIVE 11/23 Result Comment: INTERPRETAT ION(S): This method is a screening procedure for the detection of HIV p24 Antigen and Antibodies to HIV-1, including Group O, and/or HIV-2. NON-REACTIV E: HIV-1 antigen and HIV-1 / HIV-2 antibodies were not detected. No laboratory evidence of HIV infection. A negative test results does not exclude the possibility of exposure to or infection with HIV. HIV antibodies and/or p24 antigen may be undetectabl e in some stages of the infection and in some clinical conditions. If acute HIV infection is suspected, consider submitting another specimen to a reference laboratory for HIV-1 RNA. SCREEN REACTIVE - CONFIRMATIO N TO FOLLOW: Possible presence of HIV-1 antibodies, HIV-2 antibodies and/or HIV-1 p24 antigen. Specimen will reflex to the confirmatio n testing that fulfills the Center for Disease Control and Prevention' s HIV diagnostic algorithm. Refer to [facility] Lab Guide for additional information : [email or web address] .[facility]/k j/elax5/EPIMorena b/Pages/lab _guide.aspx Testing performed by Bia [facility]shea. Performed by: Epidemiolog y Laboratory Service [facility] [address] [place] [address], [place] [phone] 0117A-A F-ASU-5 9 [facility] Miscellan eous Sendouts Repository Sample.EPI RECEIVED 11/23 Result Comment: INTERPRETAT ION(S): Performed by: Epidemiolog y Laboratory Service [facility] [address] [place] [address], [place] [address] 0117A-A F-ASU-5 9 [facility] Vital Signs Combined list of inpatient and outpatient Vital Signs from Department of Defense and Veterans Affairs, ranging from 12 months to all on record, depending upon the facility. Vital Sign Value Date Comments Source Systolic Blood Pressure 139 mm[Hg] 11/26/2021 20:28:00 [id number]-PX-QYZ-59th [facility] Diastolic Blood Pressure 92 mm[Hg] 11/26/2021 20:28:00 6187V-GC-YOE-59th [facility] Mean Arterial Pressure, Calc 108 mm[Hg] 11/26/2021 20:28:00 5285U-PF-JYJ -59th [facility] Systolic Blood Pressure 132 mm[Hg] 12/29/2023 13:45:00 0055C-[facility] Diastolic Blood Pressure 84 mm[Hg] 12/29/2023 13:45:00 0055C[facility] Mean Arterial Pressure, Calc 100 mm[Hg] 12/29/2023 13:45:00 0055C[facility] Blood Pressure Manual Automatic 12/29/2023 13:45:00 0055C[facility] BP Site Right arm 12/29/2023 13:45:00 0055C -[facility] Systolic Blood Pressure 143 mm[Hg] 12/16/2024 12:55:00 0055C[facility] Diastolic Blood Pressure 96 mm[Hg] 12/16/2024 12:55:00 0055C[facility] Peripheral Pulse Rate 107 bpm 12/16/2024 12:55:00 0055C[facility] Mean Arterial Pressure, Calc 112 mm[Hg] 12/16/2024 12:55:00 00[facility] Respiratory Rate 16 br/min 12/16/2024 12:55:00 00[facility] Temperature Oral 36.9 Tracie 12/16/2024 12:55:00 0055C[facility] Systolic Blood Pressure 133 mm[Hg] 11/06/2023 17:21:00 0055C[facility] Diastolic Blood Pressure 96 mm[Hg] 11/06/2023 17:21:00 0055C[facility] Respiratory Rate 14 br/min 11/06/2023 17:21:00 00[facility] Temperature Oral 36.9 Tracie 11/06/2023 17:21:00 0055C[facility] Mean Arterial Pressure, Calc 108 mm[Hg] 11/06/2023 17:21:00 0055C[facility] Peripheral Pulse Rate 88 bpm 11/06/2023 17:21:00 00[facility] Respiratory Rate 16 br/min 12/29/2023 13:44:00 00[facility] Peripheral Pulse Rate 95 bpm 12/29/2023 13:44:00 00[facility] Mean Arterial Pressure, Calc 99 mm[Hg] 12/29/2023 13:44:00 0055C[facility] Systolic Blood Pressure 130 mm[Hg] 12/29/2023 13:44:00 0055C[facility] Diastolic Blood Pressure 83 mm[Hg] 12/29/2023 13:44:00 0055C[facility] Blood Pressure Manual Automatic 12/29/2023 13:44:00 0055C[facility] BP Site Left arm 12/29/2023 13:44:00 0055C -[facility] Encounters Combined list of: 1) Encounters from Department of Veterans Affairs facilities going backup to the last 18 months, not all VA inpatient encounters are included; 2) Encounters from the Department of Defense facilities going backup to 280 months. Location Location Details Encounter Type Encounter Number Reason For Visit Attending Provider ADM Date DC Date Status Disposition Source [address] [place] [address]) OUTPATIENT [id number] PHE JAIME MADSEN 03/27 Released w/o Limitations [employer]([facility]) [employer]([facility]) OUTPATIENT [id number] throat JAIME MADSEN 06/23 Released w/o Limitations [employer]([facility]) [employer]([facility]) OUTPATIENT [id number] throat/ chills JAIME MADSEN 06/24 Sick at Home/Quarter s [employer]([facility]) [employer]([facility] BHOP/Coum taylor) OUTPATIENT [id number] annual pha/fta c/ttp RIKA LOVELL 11/25 Released w/o Limitations [employer](F amily Practic e BHOP/Co umadin) [employer]([facility] Red Team) TELE CONSULT [id number] lab results DAILY, CATRACHITO Stuart 11/27 Other Not Elsewhere Classified [employer](F am[facility] Practic e Red Team) [employer]([facility]am [facility] Red Team) TELE CONSULT [id number] Lab results MEGAN PICKERING 12/02 [employer](F amily Practic e Red Team) [employer]([facility]am [facility]y [facility] Red Team) OUTPATIENT [id number] pink eye ZPHAM, [facility] 03/29 Sick at Home/Quarter s [employer](F amily Practic e Red Team) [employer]([facility]am [facility]y [facility] Blue Team) TELE CONSULT [id number] cac vomitin LAVELLE Monique 05/13 Referred for Appointment [employer]([facility] am[facility] Practic e Blue Team) [employer]([facility] Blue Team) OUTPATIENT [id number] cough, s/t ZDAY, DUSTIN 06/08 Released w/o Limitations [employer](F amily Practic e Blue Team) [employer]([facility]am [facility] BHOP/Coum taylor) TELE CONSULT [id number] cac pha KELECHI CROCKETT 07/13 Referred for Appointment [employer](F amily Practic e BHOP/Co umadin) [employer]([facility]am [facility] BHOP/Coum taylor) OUTPATIENT [id number] PHA/HRR KELECHI CROCKETT 07/26 Released w/o Limitations [employer](F amily Practic e BHOP/Co umadin) [facility] OUTPATIENT [id number] 11/25 Released w/o Limitations Theater Facilit y [employer]([facility]) OUTPATIENT [id number] Reinteg ration PHILLIP Dyson 03/03 Released w/o Limitations [employer](Opt ometry [facility]) TELE CONSULT [id number] Routine Eye Exam. No appoint ments availab le. LAUREN, CASE 05/04 [employer](O ptometr y Clinic) [facility](Opt ometry Clinic) OUTPATIENT [id number] eye exam YEN AZAR [facility] 09/08 Released w/o Limitations [facility](O ptometr y Clinic) [facility](Herb eficiarie s_Non-AD Only) TELE CONSULT [id number] CAC/GS- LACERAT ION ON ARM THAT IS OPEN SHANE ECKERT Y 10/17 [facility](B enefici aries_N on-AD Only) [facility](Herb eficiarie s_Non-AD Only) OUTPATIENT [id number] thumb injury LAUREN, CASE 11/01 Released w/o Limitations [facility](B enefici aries_N on-AD Only) [facility](Med ical Standards Managemen t) OUTPATIENT [id number] HRR/PHA KELLY MASTERS 11/16 Released w/o Limitations [facility](M thaddeus Standar ds Managem ent) [facility](Herb eficiarie s_Non-AD Only) OUTPATIENT [id number] bilater al knee pain JENISE SRINI 12/05 Released with Work/Duty Limitations [facility](B enefici aries_N on-AD Only) [facility] sical Therapy Clinic) OUTPATIENT [id number] bilater al knee pain STACI PETERS 12/26 Released with Work/Duty Limitations [employer](P hysical Therapy Clinic) [employer]([facility]) OUTPATIENT [id number] Notes Entered by: ANTHONY QUINONES 03 Apr 2012 1426 ------- ------- ------- ------- -- POST DEPLOYM ENT RESILIE NCY ZAIN ROJAS 04/03 Released w/o Limitations [employer]([facility]) [facility] [employer]) TELE CONSULT [id number] Notes Entered by: MARK MARTINEZ 05 Apr 2012 1303 ------- ------- ------- ------- -- [facility] 04/05 [facility] [employer]) [facility] ring [facility] ion [facility]) OUTPATIENT [id number] ANNUAL PEG 596J HUI CERRATO 05/29 Released w/o Limitations [facility](H [facility]) [facility] Promotion s) OUTPATIENT [id number] Notes Entered by: NYASIA ALONSO 13 Jun 2012 1358 ------- ------- ------- ------- -- TCC #1 NYASIA ALONSO 06/13 Released w/o Limitations [facility](H ealth Promoti ons) [facility](Opt ometry Clinic) OUTPATIENT [id number] annual eye exam CECIL XIE 07/17 Released w/o Limitations [facility](O ptometr y Clinic) [facility]) OUTPATIENT [id number] Notes Entered by: ANTHONY QUINONES 17 Jul 2012 1439 ------- ------- ------- ------- -- POST DEPLOYM ENT RESILIE NCY ZAIN ROJAS 07/17 Released w/o Limitations [employer]([facility]) [employer](Opt ometry Clinic) OUTPATIENT [id number] Refract sunny Anais-CECIL Jose 08/06 Released w/o Limitations [employer](O ptometr y Clinic) [employer](Herb eficiarie s_Non-AD Only) TELE CONSULT [id number] Notes Entered by: Tami MOURA 14 Aug 2012 1504 ------- ------- ------- ------- -- After hours KADEN Scott 08/14 [employer](B enarin acuña_N on-AD Only) [facility](Med ical Standards Managemen t) OUTPATIENT [id number] Notes Entered by: MARIA M RUBALCAVA 20 Nov 2012 0943 ------- ------- ------- ------- -- HRR/PHA MARIA M RUBALCAVA 11/20 Released w/o Limitations [employer](M edical Standar ds Managem ent) [facility]) OUTPATIENT [id number] nausea, stomach pain,th rowing up CHRISTINA NAVA 01/10 Sick at Home/Quarter s [employer]([facility]) [facility](K[facility]ysztof ins [facility]) OUTPATIENT [id number] PREDEPL OYMENT RESILIE NCY ASSESSM ENT ZAIN ELLIOTT 02/22 Released w/o Limitations [employer](R obins D[facility]) [facility]) OUTPATIENT [id number] ANNUAL PEG MONO MONTES 05/21 Released w/o Limitations [employer]([facility]) [facility]rzysztof [facility]) OUTPATIENT [id number] PHA CHRISTINA PADILLA 05/31 Released w/o Limitations [facility]) [facility]tof ins [facility]) OUTPATIENT [id number] pre deploym ent health assessm ent ANDRES KENT Sade 06/03 Released w/o Limitations [facility]) [facility]) OUTPATIENT [id number] KASSIE ZELAYA 06/11 Released w/o Limitations [facility](M ental [facility]) [facility](Opt ometry Clinic) OUTPATIENT [id number] routine eye exam ANNE-MARIEHAYLEYBelinda Garrett 07/04 Released w/o Limitations [facility](O ptometr y Clinic) [facility]) OUTPATIENT [id number] Pre-Dep loyment clearCHRISTINA Allen 07/17 Released w/o Limitations [facility]) [facility]) OUTPATIENT [id number] Notes Entered by: MARIA M RUBALCAVA 06 Aug 2013 1546 ------- ------- ------- ------- -- Pre-Dep loyment Medicat ion ANDRES KENT Sade 08/06 Released w/o Limitations [facility]) [facility] BHOP/Coum taylor) TELE CONSULT [id number] Notes Entered by: JESSICA GASTELUM 24 Feb 2014 1033 ------- ------- ------- ------- -- PHA/KEYLA ORITY ITEM TENZIN HUFF 02/24 [facility](F juan luis Harper e BHOP/Co umadin) [facility](PHA Managemen t) OUTPATIENT [id number] Notes Entered by: JESSICA GASTELUM 05 Mar 2014 0920 ------- ------- ------- ------- -- HRR/DELVIS THACKER 03/05 Released w/o Limitations [facility](P HERNANDEZ Managem ent) [employer]([facility]ys[facility]tof [facility]) OUTPATIENT [id number] Notes Entered by: JEY STERN 10 Mar 2014 0747 ------- ------- ------- ------- -- ARUN2 ANDRES KENT 03/10 Released w/o Limitations [employer]([facility]) [employer](Tro op_AD Only) OUTPATIENT [id number] LEFT ANKLE PAIN X 1 WEEK, WORSE PAIN LEVEL 7 MICAH EISENBERG 03/26 Released w/o Limitations [employer](T roop_AD Only) [employer](Tro op_AD Only) TELE CONSULT [id number] Notes Entered by: JEY STERN 06 May 2014 0800 ------- ------- ------- ------- -- Needs appt JASON is a PRIORIT Y patient and needs to be schedul ed within 72 hours TIKI OBANDO 05/06 [employer](T roop_AD Only) [employer]([facility]) OUTPATIENT [id number] ANNUAL PEG 596J KINJAL GARCIA 05/13 Released w/o Limitations [employer]([facility]) [employer](Tro op_AD Only) OUTPATIENT [id number] Per Mr Stern MICAH EISENBERG 05/14 Released w/o Limitations [employer](T roop_AD Only) [facility](Opt ometry Clinic) OUTPATIENT [id number] EYE EXAM KENDRICK VALLADARES 08/20 Released w/o Limitations [employer](O ptometr y Clinic) [employer](Med ical Standards Managemen t) OUTPATIENT [id number] Notes Entered by: ABBEY JOHNSON V 25 Feb 2015 1057 ------- ------- ------- ------- -- NIDIA Harding 02/25 Released w/o Limitations [facility](M edical Standar ds Managem ent) [employer](In and Out Negin Leung) TELE CONSULT [id number] Notes Entered by: ISAAK KEVIN 12 Mar 2015 1345 ------- ------- ------- ------- -- Out Process ing ISAAK KEVIN 03/12 [employer](I n and Out Process ing Madhu) [facility], [place] [address](Ramon velasquez [facility] Team A) TELE CONSULT [id number] Notes Entered by: Huy CONTRERAS 22 Apr 2015 0758 ------- ------- ------- ------- -- ROUTINE PHA RR [id number] SHWETA SAGASTUME 04/22 [facility] [place] [address](Tami castillo [facility] Team [place]) [place] [address]([facility]) OUTPATIENT [id number] Negetiv e finding DHA 4 ROXANNA LAWS P 04/22 Released w/o Limitations [facility], [place] [address]([facility]) [place] [address](In and Out Chidi Rosas) TELE CONSULT [id number] Notes Entered by: ANDERSON DURAN NMI 05 May 2015 0747 ------- ------- ------- ------- -- In-Proc PK Fulton NMJustice 05/05 Other Not Elsewhere Classified [facility] [place] [address](I n and Out Process Mynor lewis) [place] [address]([facility]) OUTPATIENT [id number] sore throat VIKAS GUY 07/06 Released w/o Limitations [facility], [place] [address]([facility]) [place] [address]([facility], [facility]) OUTPATIENT [id number] NGUYỄN#5 JANIS BARKLEY 05/10 Released w/o Limitations [facility] [place] [address](Chema garciabelinda [facility], [facility]) [place] [address](Lac kland_[facility] _Team F) TELE CONSULT [id number] Notes Entered by: OCTAVIA CROWE 26 May 2016 0820 ------- ------- ------- ------- -- CAMO lump chest JULIA LUU 05/26 [facility] [place] [address](L acand _[facility]Te am F) [place] [address](Lac kland_[facility] _Team E) OUTPATIENT [id number] painful lump right side chest KATIE CRAIN 05/26 Released w/o Limitations [facility] [place] [address](L ackland _[facility]_Te am E) [place] [address]([facility] Team A) TELE CONSULT [id number] Notes Entered by: JACOB SAUER 12 Jul 2016 0622 ------- ------- ------- ------- -- [facility] Rad results KATIE CRAIN 07/12 [facility] [place] [address](L acand [facility] Team A) [place] [address]([facility], [facility]) OUTPATIENT [id number] [facility] STEPHANIE MAYNARD 02/15 Released w/o Limitations [facility] [place] [address](N utritio nal Medicin e, [facility]) [place] [address](Phy sical Exams, [facility]) OUTPATIENT [id number] Notes Entered by: SARAN BIRCH 27 Apr 2017 0913 ------- ------- ------- ------- -- Annual Tri-Ser WHITNEY Carpenter 04/27 Released w/o Limitations [facility] [place] [address](P hysical Exams, [facility]) [place] [address](Opt ometry Clinic, [facility]) OUTPATIENT [id number] ROUTINE EYE EXAM/WH ASC RAE MAGUIRE 05/02 Released w/o Limitations [facility] [place] [address](O ptometr y Clinic, [facility]) [place] [address](Oph thal PRK, [facility]) OUTPATIENT [id number] PRK VIDAKIARA QUINTANAJERARDO ZUNIGA 05/10 Released w/o Limitations [facility] [place] [address](O phthal PRK, [facility]) [place] [address](Oph thal PRK, [facility]) OUTPATIENT [id number] Repeat testing @ PRISCILLA GRIFFIN 06/26 Released w/o Limitations [facility] [place] [address](O phthal PRK, [facility]) [place] [address](Oph thal PRK, [facility]) OUTPATIENT [id number] BRIEF KENDRICK SCOTT 06/27 [facility]ased w/o Limitations [facility] [place] [address](O phthal PRK, [facility]) [place] [address](Oph thal PRK, [facility]) OUTPATIENT [id number] SURGERY KENDRICK SCOTT 06/28 Released with Work/Duty Limitations [facility] [place] [address](O phthal PRK, [facility]) [place] [address](Oph thal PRK, [facility]) OUTPATIENT [id number] POD1 KENDRICK SCOTT 06/29 Released with Work/Duty Limitations [facility] [place] [address](O phthal PRK, [facility]) [facility] [place] [address](Oph thal PRK, [facility]) OUTPATIENT [id number] POD5 BRYCEKARI KINJAL 07/03 Released with Work/Duty Limitations [facility] [place] [address](O phthal PRK, [facility]) [place] [address](Oph thal PRK, [facility]) OUTPATIENT [id number] pom1 BRYCEYASMEEN BOLANOS 07/26 Released with Work/Duty Limitations [facility] [place] [address](O phthal PRK, [facility]) [place] [address](BOM C,Joshua) OUTPATIENT [id number] [facility] [id number] PROV INFO YOBANY MAX 05/23 Released w/o Limitations [facility] [place] [address](B [facility],Valente d) [place] [address]([facility] Team G) OUTPATIENT [id number] COLD SORE WH FAM CHELSEA DOBSON 06/19 Released w/o Limitations [facility] [place] [address](Tami [facility] Team G) [place] [address]([facility] Team G) OUTPATIENT [id number] Notes Entered by: CHELSEA DOBSON 22 Jun 2018 1654 ------- ------- ------- ------- -- lab results CHELSEA DOBSON 06/22 Released w/o Limitations [facility] [place] [address](Tami saezkiran [facility] Team G) [place] [address]([facility] Team G) TELE CONSULT [id number] Notes Entered by: CASANDRA LUNA V 26 Dec 2018 1343 ------- ------- ------- ------- -- FCR/LUIGI CK DUTY CLEARAN ON LICENSE OF [facility] CONTACT NUMBER [id number] TVS/CAM O EMERITA MACEDO 12/26 [facility] Appointment [facility] [place] [address](L [facility] Team G) [facility], [place] [address](Phy sical Exams, Joshua) TELE CONSULT [id number] Notes Entered by: Dinorah CASTILLO 27 Dec 2018 1555 ------- ------- ------- ------- -- Special Duty samantha oshea (MTI) BABAR TAO 12/27 [facility] [place] [address](P hysical Exams, Joshua) [place] [address]([facility] Team G) OUTPATIENT [id number] 422 needed for MTI MARCIO Lopez 01/09 Released w/o Limitations [facility] [place] [address](L [facility] Team G) [facility], [place] [address](All ergy, [facility]) OUTPATIENT [id number] Notes Entered by: Ela DOTY 20 Feb 2019 1530 ------- ------- ------- ------- -- LUCERO ACUÑA 02/20 Released w/o Limitations [facility] [place] [address](A llergy, [facility]) [facility], [place] [address](BOM C,Joshua) OUTPATIENT [id number] [id number] CALISTA ALMARAZ 06/06 Released w/o Limitations [facility] [place] [address]([facility],[place]) [place] [address]([facility] Team A) TELE CONSULT [id number] Notes Entered by: Vicenta SCHROEDER 24 Jun 2019 0911 ------- ------- ------- ------- -- REFERAL REQUEST CHIRO #[id number] TERRIE/HOLLY PRECIADO 06/24 [facility] [place] [address](Tami castillo [facility] Team A) [place] [address]([facility], [facility]) OUTPATIENT [id number] Low back pain TERELL CHOWDARY 06/28 Released w/o Limitations [facility] [place] [address]([facility], [facility]) [place] [address]([facility]) OUTPATIENT [id number] TERELL CHOWDARY 07/25 Released w/o Limitations [facility] [place] [address]([facility], [facility]) [place] [address]([facility] Op_Med Team A,[facility]) TELE CONSULT [id number] Notes Entered by: PRAVIN ALFARO 29 Jul 2019 1244 ------- ------- ------- ------- -- RX REFILL FOR COLD SORES [phone] SNG/CAM O HEIDI ASTUDILLO 07/29 Other Not Elsewhere Classified [facility] [place] [address](L acklkiran Op_Med Team A,[facility] ) [place] [address](Phy sical Therapy [place]) OUTPATIENT [id number] Low back pain GUZMÁN, BART 08/28 Released w/o Limitations [facility] [place] [address](P hysical Therapy [place]) [place] [address]([facility]) OUTPATIENT [id number] [facility] ER F/U HOLLY OQUENDO 09/20 Released w/o Limitations [facility] [place] [address](Tami acron Op_Med Team A,[facility] ) [place] [address]([facility], [facility]) OUTPATIENT [id number] Low back pain TERELL CHOWDARY 10/17 Released w/o Limitations [facility] [place] [address]([facility] c[facility], [facility]) [place] [address]([facility], [facility]) OUTPATIENT [id number] TERELL CHOWDARY 10/25 Released w/o Limitations [facility] [place] [address]([facility], [facility]) [place] [address](Phy sical Therapy, [facility]) OUTPATIENT [id number] Low back pain PAYAM MCCRARY L 10/30 Released w/o Limitations [facility] [place] [address](P hysical Therapy , [facility]) [place] [address]([facility], [facility]) OUTPATIENT [id number] TERELL CHOWDARY 11/01 Released w/o Limitations [facility] [place] [address]([facility], [facility]) [place] [address]([facility], [facility]) OUTPATIENT [id number] TERELL CHOWDARY 11/08 Released w/o Limitations [facility] [place] [address]([facility], [facility]) [place] [address]([facility], [facility]) OUTPATIENT [id number] TERELL CHOWDARY 11/15 Released w/o Limitations [facility] [place] [address](C [facility], [facility]) [place] [address]([facility] OUTPATIENT [id number] TERELL CHOWDARY 12/02 Released w/o Limitations [facility] [place] [address]([facility]) [facility], [place] [address]([facility] ropractic [facility]) OUTPATIENT [id number] TERELL CHOWDARY 12/08 Released w/o Limitations [facility] [place] [address]([facility], [facility]) [facility], [place] [address](All [facility]) TELE CONSULT [id number] Notes Entered by: Ela SALDANA 25 Apr 2020 1004 ------- ------- ------- ------- -- MTI ZAHRA Gray 04/25 Released to Self Care [facility] [place] [address]([facility], [facility]) [facility], [place] [address](All [facility]) TELE CONSULT [id number] Notes Entered by: Ela SALDANA 07 May 2020 0908 ------- ------- ------- ------- -- Labs ZAHRA ZUÑIGA 05/07 Released to Self Care [facility] [place] [address](Dustin llergy, [facility]) [facility], [place] [address](BOSade Morales,Joshua) OUTPATIENT [id number] A FOR PHA PT# [id number] GREGORY XIE 05/19 Released w/o Limitations [facility] [place] [address](B OMValente Morales) [facility], [place] [address](Ramon velasquez Op_Med Team A,[facility]) TELE CONSULT [id number] Notes Entered by: MAIA NICHOLAS 21 May 2020 0951 ------- ------- ------- ------- -- MEDICAT ION RENEWAL /[id number]/ AAC/CAM O LOGAN AGARWAL 05/21 Referred for Appointment [facility] [place] [address](L a[place]land Op_Med Team A,[facility] ) [place] [address](COV ID19 Screening [facility]) TELE CONSULT [id number] Notes Entered by: Ela CHEATHAM 21 Jul 2020 0707 ------- ------- ------- ------- -- Covid test results YOBANY CASIANO 07/21 [place] [address](C OVID19 Screeni [facility]) [place] [address](Ramon kland Op_Med Team A,[facility]) TELE CONSULT [id number] Notes Entered by: ALEC SOLORIO 18 Sep 2020 0908 ------- ------- ------- ------- -- Med Refill #[id number] LC/CAM O LOGAN AGARWAL 09/18 Referred for Appointment [place] [address](L a[place]land Op_Med Team A,[facility] ) [place] [address](Lac kland Op_Med Team A,[facility]) TELE CONSULT [id number] Notes Entered by: TIBURCIO VALLE 23 Sep 2020 1212 ------- ------- ------- ------- -- MED REFILL # [id number] 032 DB/LOGAN BARNEY 09/23 Referred for Appointment [place] [address](L a[place]land Op_Med Team A,[facility] ) [place] [address]([place]ac k[place] Op_Med Team A,[facility]) OUTPATIENT [id number] concern s on flare ups for lips, cold sore CHICO BULLOCK 10/14 Released w/o Limitations [facility] [place] [address](L a[place]land Op_Med Team A,[facility] ) [place] [address](BOM C,Joshua) OUTPATIENT [id number] MHA [phone] ARMINDA, JEANMARIE A 06/24 Released w/o Limitations [facility] [place] [address](B [facility]ente d) [place] [address]([place] Op_Med Team A,[facility]) OUTPATIENT [id number] Hc; Med Renewal ; [phone] ZZZBM_VIES ON, ZZZBM_ADRI ENNE M 09/27 Released w/o Limitations [facility] [place] [address](L ackland Op_Med Team A,[facility] ) [address] [place] [address] [facility])(War rior Op Med Cln Tm A Ad) TELE CONSULT [id number] Notes Entered by: LIANG SINGH 02 Feb 2023 1526 ------- ------- ------- ------- -- High blood pressur belinda Pretty - - tsg DIAN CANAS 02/02 Referred for Appointment [address] [place] [address] [facility])(W arrior Op Med Cln Tm A Ad) [address] [place] [address] [facility])(War rior Op Med Cln Tm A Ad) OUTPATIENT [id number] Elevate d BP TOBIAS VÁSQUEZ 02/03 Released w/o Limitations [address] [place] [address] [facility])(W arrior Op Med Cln Tm A Ad) [address] [place] [address] [facility])(War rior Op Med Cln Tm A Ad) TELE CONSULT [id number] Notes Entered by: SEBLE RODRIGUEZ 13 Feb 2023 0912 ------- ------- ------- ------- -- Lab results DEBORAHKENDRICK RAMOS BLAKE 02/13 Referred for Appointment [address] [place] [address] [facility])(W arrior Op Med Cln Tm A Ad) 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 Care Not Rendered [id number] EV FRANCISCO 09/17 Discharge Disposition: Home or Self Care - [address] [place] [address] -[phone] [facility] [id number] ASSESSM ENT, POST DEPLOYM ENT, ABIGAIL MONTANEZ ON [id number] (PDHRA) ,Other visual disturb ances CHICO BLANCO 11/12 Discharge Disposition: Home or Self Care - [address] [place] [address] [phone] MEDGRPSc [facility] Between Visit [id number] 11/19 Discharge Disposition: Home or Self Care - [address] [place] [address] Blake -375 [facility] [id number] Noninfe ctive gastroe nteriti s and colitis , unspeci fied NBA BARTON 12/16[facility] [address] [place] [address] Blake Procedures Combined list of: 1) Procedures from Department of Veterans Affairs facilities going back up to thelast 18 months, not all VA non-surgical procedures are included; 2) All procedures from the Department of Defense facilities. Procedure Procedure Type Code Date Perfomer Comments Sourc e Physical Therapy Service Evaluation [address] [place] [address] Internet Med Svc Qual Nonphys Healthcare Prof Up To 7 Days Estab Patient [address] [place], [place] [address]BRANDT Lozano Fitting of spectacles, except for aphakia; monofocal Fitting of spectacles, except for aphakia; monofocal 11692 Outside Source Comment: FOC and ballistic [facility] NASRA Lozano Dr.-[employer] [address] [place], [place] [address]Kaleb Lozano Scanning computerized ophthalmic diagnostic imaging, anterior segment, with interpretation and report, unilateral or bilateral Scanning computerized ophthalmic diagnostic imaging, anterior segment, with interpretation and report, unilateral or bilateral [address] [place] [address] Blake Psychometric Neuropsych Testing Battery Admin By Computer [facility] Psychiatric evaluation of hospital records, other psychiatric reports, psychometric and/or projective tests, and other accumulated data for medical diagnostic purposes Psychiatric evaluation of hospital records, other psychiatric reports, psychometric and/or projective tests, and other accumulated data for medical diagnostic purposes [address] [place] [address] Blake Psychiatric diagnostic evaluation Psychiatric diagnostic evaluation [address] [place] [address] Blake Health And Behav Intervention, Each Additional 15 Min Grp (2 Or More) [address] [place] [address] Blake Determination of refractive state Determination of refractive state [address] [place] [address] Blake Brief emotional/behavioral a e ment (eg, depre ion inventory, attention-deficit/hy peractivity disorder [ADHD] scale), with scoring and documentation, per standardized instrument Brief emotional/behavior al assessment (eg, depression inventory, attention-deficit/ hyperactivity disorder [ADHD] scale), with scoring and documentation, per standardized instrument [address] [place] [address] Blake Physical Therapy Education Orthotics Training Outside Source Comment: Time In 1312/Time Out 1322 x 10 min: Pt issued OTS Spenco semi-rigid insoles for wear with all footwear. Instructed pt in proper wear, adjustments prn. [address] [place], [place] [address]Kaleb Lozano Ear mold/insert, disposable, any type 54 [facility] NASRA Lozano Brief communication technology-based service [facility] NASRA Lozano Physician [employer] [address] [place] [address] Blake Osteopathic manipulative treatment (OMT); one to two body regions involved Osteopathic manipulative treatment (OMT); one to two body regions involved 35983 Outside Source Comment: HVLAT to lumbar region to improve facet glide d/t facet impingement. Soft tissue cupping to reduce muscular tension -3 [facility] Orthopedic shoe addition, insole, rubber 5C-3 [facility] Medical nutrition therapy; group (2 or more individual(s)), each 30 minutes Medical nutrition therapy; group (2 or more individual(s)), each 30 minutes 62927 -3 [facility] External ocular photography with interpretation and report for documentation of medical progre (eg, close-up photography, slit lamp photography, goniophotography, stereo-photography) External ocular photography with interpretation and report for documentation of medical progress (eg, close-up photography, slit lamp photography, goniophotography, stereo-photography ) 54339 5C-3 [facility] Blake COMPUTERIZED CORNEAL TOPOGRAPHY UNI/BI COMPUTERIZED CORNEAL TOPOGRAPHY UNI/BI 71181 5C-3 [facility] Application of a modality to one or more areas; hot or cold packs Application of a modality to one or more areas; hot or cold packs 28133 5C-3 [facility] Application of a modality to one or more areas; electrical stimulation (unattended) Application of a modality to one or more areas; electrical stimulation (unattended) 73816 5C-3 [facility] Blake Waiver services; not otherwise specified (NOS) ZZZBM_VIESON, ZZZBM_SAROJ E M [facility] Therapeutic procedure, one or more areas, each 15 minutes; therapeutic exercises to develop strength and endurance, range of motion and flexibility Therapeutic procedure, one or more areas, each 15 minutes; therapeutic exercises to develop strength and endurance, range of motion and flexibility 68047 5C-3 [facility] Pure tone audiometry (threshold); air only Pure tone audiometry (threshold); air only 36021 Outside Source Comment: NO STS -3 [facility] Blake Patient education, not otherwise cla ified, non-physician provider, individual, per se ion -3 [facility] No Procedure information available for data migration. 5C-3 [facility] Blake Internet Med Svc Qual [facility] Healthcare Prof Up To 7 Days Estab Patient 0055C-3 [facility] Blake Exercise equipment O utside Source Comment: Stretch strap NASRA Lozano Counseling and discu ion regarding advance directives or end of life care planning and decisions, with patient and/or surrogate (list separately in addition to code for appropriate evaluation and management service) [facility] NASRA Lozano Counseling and discu ion regarding advance directives or end of life care planning and decisions, with patient and/or surrogate (list separately in add ition to code for appropriate evaluation and management service) [facility] NASRA Lozano Chiropractic manipulative treatment (CMT); spinal, three to four regions Chiropractic manipulative treatment (CMT); spinal, three to four regions 17697 [facility] NASRA Lozano Chiropractic manipulative treatment (CMT); spinal, one to two regions Chiropractic manipulative treatment (CMT); spinal, one to two regions 75817 [facility] NASRA Lozano Psychometric Neuropsych Testing Battery Admin By Computer NASRA Lozano Laser in situ keratomileusis (LASIK) [facility] NASRA Lozano Counseling and discu ion regarding advance directives or end of life care planning and decisions, with patient and/or surrogate (list separatel y in addition to code for appropriate evaluation and management service) [facility] NASRA Lozano PHYS/OTH QUALIFIED HEALTH THERAPY SITE COORDINATOR QUALIFIED,EDUCATION, TRAIN,LICENSURE/REGU LATION (WHEN APPLICABLE) EDUC SER RENDERED TO PATS IN A GRP SETTING (EG,,OBESITY ,OR DIABETIC INSTRUCT) 2008 DoD TELE ASSESS & MGT SRV PROV QUAL NONPHYS HLTH CARE PRO TO EST PAT,PARENT,GUARD NOT ORIG REL ASSESS & MGT SRV PROV W/IN PREV 7 DAYS NOR LEAD ASSESS & MGT SRV/PX W/IN NXT 24 HR/SOON APT;5-10 MIN MED DIS 2022 DoD TELE ASSESS & MGT SRV PROV QUAL NONPHYS HLTH CARE PRO TO EST PAT,PARENT,GUARD NOT ORIG REL ASSESS & MGT SRV PROV W/IN PREV 7 DAYS NOR LEAD ASSESS & MGT SRV/PX W/IN NXT 24 HR/SOON APT;5-10 MIN MED DIS 2022 DoD PSYCHIATRIC EVALUATION OF HOSPITAL RECORDS, OTHER PSYCHIATRIC REPORTS, PSYCHOMETRIC AND/OR PROJECTIVE TESTS, AND OTHER ACCUMULATED DATA FOR MEDICALDIAGNOSTIC PURPOSES 2016 DoD FITTING OF SPECTACLES, EXCEPT FOR APHAKIA; MONOFOCAL 2013 DoD EAR MOLD/INSERT, DISPOSABLE, ANY TYPE 2013 DoD FITTING OF SPECTACLES, EXCEPT FOR APHAKIA; MONOFOCAL 2012 DoD PSYCHIATRIC EVALUATION OF HOSPITAL RECORDS, OTHER PSYCHIATRIC REPORTS, PSYCHOMETRIC AND/OR PROJECTIVE TESTS, AND OTHER ACCUMULATED DATA FOR MEDICALDIAGNOSTIC PURPOSES 2012 DoD NEUROPSYCHOLOGICAL TESTING (EG, [place] CARD SORTING TEST), ADMINISTERED BY A COMPUTER, WITH QUALIFIED HEALTH THERAPY SITE COORDINATOR INTERPRETATION AND REPORT 2012 [facility] PATIENT EDUCATION, NOT OTHERWISE CLASSIFIED, NON-PHYSICIAN PROVIDER, INDIVIDUAL, PER SESSION 2012 [facility] FITTING OF SPECTACLES, EXCEPT FOR APHAKIA; MONOFOCAL 2011 DoD FITTING OF SPECTACLES, EXCEPT FOR APHAKIA; MONOFOCAL 2011 [facility] EDUCATION &TRAINING, PATIENT SELF-MGT QUALIFIED, NONPHYSICIAN HEALTH THERAPY SITE COORDINATOR USING STANDARDIZED CURRICULUM, PENE-VE-GCSI W THE PATIENT (COULD INCL CAREGIVER/FAMILY) EA 30 MIN; 5-8 PATIENTS 2011 [facility] PATIENT EDUCATION, NOT OTHERWISE CLASSIFIED, NON-PHYSICIAN PROVIDER, INDIVIDUAL, PER SESSION 2011 [facility] ORTHOPEDIC SHOE ADDITION, INSOLE, RUBBER 2011 [facility] DETERMINATION OF REFRACTIVE STATE 2010 [facility] HEALTH AND BEHAVIOR INTERVENTION, EACH 15 MINUTES, TXIX-WR-TOST; GROUP (2 OR MORE PATIENTS) 2010 [facility] SCREENING TEST OF VISUAL ACUITY, QUANTITATIVE, BILATERAL 2009 DoD WAIVER SERVICES; NOT OTHERWISE SPECIFIED (NOS) 2020 DoD BRIEF COMM TECH-BASE SERV,E.G. VIRT CHK-IN,BY PHYS/OTH QUAL HCP,RPT E&M SERV,PROV TO EST PT,NOT ORIG FRM REL E/M SERV PROV W/IN PREV 7DAY NOR LEAD TO E/M SRV/PX W/IN NEXT 24HR/SOON FRANCES; 5-10 MIN DISC 2020 [facility] HOSPITAL OUTPATIENT CLINIC VISIT SPECIMEN COLLECTION FOR SEVERE ACUTE RESPIRATORY SYNDROME CORONAVIRUS 2 (SARS-COV-2) (CORONAVIRUS DISEASE [COVID-19]), ANY SPECIMEN SOURCE 2020 DoD WAIVER SERVICES; NOT OTHERWISE SPECIFIED (NOS) 2020 DoD BRIEF COMM TECH-BASE SERV,E.G. VIRT CHK-IN,BY PHYS/OTH QUAL HCP,RPT E&M SERV,PROV TO EST PT,NOT ORIG FRM REL E/M SERV PROV W/IN PREV 7DAY NOR LEAD TO E/M SRV/PX W/IN NEXT 24HR/SOON FRANCES; 5-10 MIN DISC 2019 DoD APPLICATION OF A MODALITY TO 1 OR MORE AREAS; HOT OR COLD PACKS 2019 DoD APPLICATION OF A MODALITY TO 1 OR MORE AREAS; HOT OR COLD PACKS 2019 DoD APPLICATION OF A MODALITY TO 1 OR MORE AREAS; HOT OR COLD PACKS 2019 DoD APPLICATION OF A MODALITY TO 1 OR MORE AREAS; HOT OR COLD PACKS 2019 DoD APPLICATION OF A MODALITY TO 1 OR MORE AREAS; HOT OR COLD PACKS 2019 DoD THERAPEUTIC PROCEDURE, 1 OR MORE AREAS, EACH 15 MINUTES; THERAPEUTIC EXERCISES TO DEVELOP STRENGTH AND ENDURANCE, RANGE OF MOTION AND FLEXIBILITY 2019 DoD APPLICATION OF A MODALITY TO 1 OR MORE AREAS; HOT OR COLD PACKS 2019 DoD APPLICATION OF A MODALITY TO 1 OR MORE AREAS; HOT OR COLD PACKS 2019 DoD EXERCISE EQUIPMENT 2018 DoD APPLICATION OF A MODALITY TO 1 OR MORE AREAS; HOT OR COLD PACKS 2018 DoD CHIROPRACTIC MANIPULATIVE TREATMENT (CMT); SPINAL, 3-4 REGIONS 2018 DoD ADMINISTRATION OF PATIENT-FOCUSED HEALTH RISK ASSESSMENT INSTRUMENT (EG, HEALTH HAZARD APPRAISAL) WITH SCORING AND DOCUMENTATION, PER STANDARDIZED INSTRUMENT 2018 DoD TETANUS AND DIPHTHERIA TOXOIDS ADSORBED (TD), PRESERVATIVE FREE, WHEN ADMINISTERED TO INDIVIDUALS 7 YEARS OR OLDER, FOR INTRAMUSCULAR USE 2018 DoD COUNSELING AND DISCUSSION REGARDING ADVANCE DIRECTIVES OR END OF LIFE CARE PLANNING AND DECISIONS, WITH PATIENT AND/OR SURROGATE 2018 DoD BRIEF EMOTIONAL/BEHAVIORAL ASSESSMENT (EG, DEPRESSION INVENTORY, ATTENTION-DEFICIT/HY PERACTIVITY DISORDER [ADHD] SCALE), WITH SCORING AND DOCUMENTATION, PER STANDARDIZED INSTRUMENT 2018 DoD ONLINE ASSESS &MANAG SERV PROVIDE,A QUAL NONPHYS HCP TO AN ESTABLISHED PAT/GUARDIAN,NOT ORIGINAT FRM RELAT ASSESS &MANAG SERV PROVIDE W/IN THE PREV 7 DAYS,USE THE INTERNET/SIMIL[employer] 2017 DoD ONLINE ASSESS &MANAG SERV PROVIDE,A QUAL NONPHYS HCP TO AN ESTABLISHED PAT/GUARDIAN,NOT ORIGINAT FRM RELAT ASSESS &MANAG SERV PROVIDE W/IN THE PREV 7 DAYS,USE THE [employer] NETWORK 2017 DoD POSTOPERATIVE FOLLOW-UP VISIT, NORMALLY INCLUDED IN THE SURGICAL PACKAGE, INDICATE THAT EVALUATION & MANAGEMENT SERVICE WAS PERFORMED DURING A POSTOPERATIVE PERIOD REASON RELATED ORIGINAL PROCEDURE 2016 [facility] LASER IN SITU KERATOMILEUSIS (LASIK) 2016 DoD POSTOPERATIVE FOLLOW-UP VISIT, NORMALLY INCLUDED IN THE SURGICAL PACKAGE, INDICATE THAT EVALUATION & MANAGEMENT SERVICE WAS PERFORMED DURING A POSTOPERATIVE PERIOD REASON RELATED ORIGINAL PROCEDURE 2016 [facility] LASER IN SITU KERATOMILEUSIS (LASIK) 2016 [facility] OPHTHALMOLOGICAL SERVICES: MEDICAL EXAMINATION AND EVALUATION, WITH INITIATION OR CONTINUATION OF DIAGNOSTIC AND TREATMENT PROGRAM; INTERMEDIATE, ESTABLISHED PATIENT 2016 [facility] SCANNING COMPUTERIZED OPHTHALMIC DIAGNOSTIC IMAGING, ANTERIOR SEGMENT, WITH INTERPRETATION AND REPORT, UNILATERAL OR BILATERAL 2016 [facility] SCANNING COMPUTERIZED OPHTHALMIC DIAGNOSTIC IMAGING, ANTERIOR SEGMENT, WITH INTERPRETATION AND REPORT, UNILATERAL OR BILATERAL 2016 [facility] FITTING OF SPECTACLES, EXCEPT FOR APHAKIA; MONOFOCAL 2016 [facility] ADMINISTRATION OF PATIENT-FOCUSED HEALTH RISK ASSESSMENT INSTRUMENT (EG, HEALTH HAZARD APPRAISAL) WITH SCORING AND DOCUMENTATION, PER STANDARDIZED INSTRUMENT 2016 [facility] MEDICAL NUTRITION THERAPY; GROUP (2 OR MORE INDIVIDUAL(S)), EACH 30 MINUTES 2016 [facility] TELE ASSESS & MGT SRV PROV QUAL NONPHYS HLTH CARE PRO TO EST PAT,PARENT,GUARD NOT ORIG REL ASSESS & MGT SRV PROV W/IN PREV 7 DAYS NOR LEAD ASSESS & MGT SRV/PX W/IN NXT 24 HR/SOON APT;5-10 MIN MED DIS 2015 DoD SCREENING TEST OF VISUAL ACUITY, QUANTITATIVE, BILATERAL 2008 DoD Health And Behav Intervention, Each Additional 15 Min Grp (2 Or More) Health And Behav Intervention, Each Additional 15 Min Grp (2 Or More) 97345 2010 NICOLLE OLGUIN [facility] Screening Test Of Visual Acuity, Quantitative, Bilateral Screening Test Of Visual Acuity, Quantitative, Bilateral 32612 2009 RIKA LOVELL [facility] Physician Supervised [employer] Educational Services 2008 JAIME MADSEN [facility] Preventive Medicine Administration Of Health Risk Questionnaire Patient-Focused Preventive Medicine Administration Of Health Risk Questionnaire Patient-Focused 70876 2018 CALISTA ALMARAZ [facility] Internet Med Svc Qual [facility] Healthcare Prof Up To 7 Days Estab Patient Internet Med Svc Qual [facility] Healthcare Prof Up To 7 Days Estab Patient 16498 2018 CALISTA ALMARAZ [facility] Immunization Administration By Injection, One Vaccine Immunization Administration By Injection, One Vaccine 76450 2018 JAH DOTY [facility] Td Vaccine Preservative Free, Adsorbed Td Vaccine Preservative Free, Adsorbed 14334 2018 JAH DOTY Td (adult), adsorbed; Series #: 1; .5 mL; IM; Unknown; [facility]: [facility] [employer]; Lot: [id number]; VIS given (Len: 01/17/2017). [facility] Counseling and discu ion regarding advance directives or end of life care planning and decisions, with patient and/or surrogate (list separately in addition to code for appropriate evaluation and management service) 2018 MARCIO FLORES [facility] Psychometric Emotional / Behavioral A e ment Psychometric Emotional / Behavioral Assessment 84388 2018 PHILLIP MUHAMMAD [facility] Performance Of Mental Status Exam - Cerebral Function And Aphasia Performance Of Mental Status Exam - Cerebral Function And Aphasia 42280 2018 PHILLIP MUHAMMAD [facility] Psychiatric Diagnostic Evaluation Initial Psychiatric Diagnostic Evaluation Initial 28260 2018 PHILLIP MUHAMMAD [facility] Internet Med Svc Qual [facility] Healthcare Prof Up To 7 Days Estab Patient Internet Med Svc Qual [facility] Healthcare Prof Up To 7 Days Estab Patient 01279 2017 CHELSEA DOBSON [facility] Internet Med Svc Qual [facility] Healthcare Prof Up To 7 Days Estab Patient Internet Med Svc Qual Nonphys Healthcare Prof Up To 7 Days Estab Patient 12222 2017 YOBANY BEARDEN [facility] Preventive Medicine Administration Of Health Risk Questionnaire Patient-Focused Preventive Medicine Administration Of Health Risk Questionnaire Patient-Focused 59681 2017 YOBANY BEARDEN Postoperative Visit, Without Charge Postoperative Visit, Without Charge 15576 2016 YASMEEN WU [facility] Laser in situ keratomileusis (LASIK) 2016 KARI WU Postoperative Visit, Without Charge Postoperative Visit, Without Charge 77229 2016 KOLTON GARCIAS Laser in situ keratomileusis (LASIK) 2016 LORAINE GRACIA Ophthalmological Prior Patient Start Intermediate Level Care Ophthalmological Prior Patient Start Intermediate Level Care 71005 2016 KENDRICK SCOTT Scanning Computerized Ophthalmic Diagnostic Imaging Anterior Segment, Unilateral Scanning Computerized Ophthalmic Diagnostic Imaging Anterior Segment, Unilateral 82507 2016 PRISCILLA GRIFFIN Computerized Corneal Topography Computerized Corneal Topography 93487 2016 PRISCILLA GRIFFIN Determination Of Refractive State Determination Of Refractive State 75535 2016 PRISCILLA GRIFFIN Preventive Medicine Administration Of Health Risk Questionnaire Patient-Focused Preventive Medicine Administration Of Health Risk Questionnaire Patient-Focused 53264 2016 MISTI MICHELLE Ophthalmological New Patient Start Comprehensive Care Ophthalmological New Patient Start Comprehensive Care 98552 2016 JERARDO FELIX Determination Of Refractive State Determination Of Refractive State 94480 2016 JERARDO FELIX Computerized Corneal Topography Computerized Corneal Topography 60118 2016 JERARDO FELIX Corneal Pachymetry Both Eyes Corneal Pachymetry Both Eyes 25743 2016 JERARDO FELIX External Ocular Photography External Ocular Photography 14968 2016 JERARDO FELIX Scanning Computerized Ophthalmic Diagnostic Imaging Anterior Segment, Unilateral Scanning Computerized Ophthalmic Diagnostic Imaging Anterior Segment, Unilateral 72095 2016 JERARDO FELIX Spectacles Services Fitting Monofocal Except For Aphakia Spectacles Services Fitting Monofocal Except For Aphakia 20189 2016 RAE MAGUIRE Determination Of Refractive State Determination Of Refractive State 62370 2016 RAE MAGUIRE Ophthalmological Prior Patient Start Comprehensive Care Ophthalmological Prior Patient Start Comprehensive Care 79878 2016 RAE MAGUIRE Psychiatric Diagnostic Evaluation Review of Records and Reports Psychiatric Diagnostic Evaluation Review of Records and Reports 56502 2016 CORY SANTIAGO Medical Nutrition Therapy Group (2 or More Individuals) Each 30 Minutes Medical Nutrition Therapy Group (2 or More Individuals) Each 30 Minutes 81218 2016 STEPHANIE MAYNARD DoD Non-Physician Phone Call To Patient/Provider Brief (5-10min) Non-Physician Phone Call To Patient/Provider Brief (5-10min) 75830 2015 JULIA LUU Spoke with pt approx 5 mins. DoD Spectacles Services Fitting Monofocal Except For Aphakia Spectacles Services Fitting Monofocal Except For Aphakia 67135 2013 KENDRICK VALLADARES Determination Of Refractive State Determination Of Refractive State 47156 2013 KENDRICK VALLADARES Ophthalmological Prior Patient Start Comprehensive Care Ophthalmological Prior Patient Start Comprehensive Care 49275 2013 KENDRICK VALLADARES Ear mold/insert, disposable, any type 2013 KINJAL GARCIA Patient education, not otherwise cla ified, non-physician provider, individual, per se ion 2013 KINJAL GARCIA Threshold Audiogram (Pure Tone) Threshold Audiogram (Pure Tone) 16293 2013 KINJAL GARCIA NO STS DoD Spectacles Services Fitting Monofocal Except For Aphakia Spectacles Services Fitting Monofocal Except For Aphakia 06383 2012 CECIL XIE FOC and ballistic DoD Determination Of Refractive State Determination Of Refractive State 82479 2012 CECIL XIE Ophthalmological Prior Patient Start Comprehensive Care Ophthalmological Prior Patient Start Comprehensive Care 18346 2012 CECIL XIE Psychiatric Diagnostic Evaluation Review of Records and Reports Psychiatric Diagnostic Evaluation Review of Records and Reports 79897 2012 ANDREA MERCHANT Psychometric Neuropsych Testing Battery Admin By Computer Psychometric Neuropsych Testing Battery Admin By Computer 71389 2012 CHRISTIE FLORES Patient education, not otherwise cla ified, non-physician provider, individual, per se ion 2012 MONO OROZCO Threshold Audiogram (Pure Tone) Threshold Audiogram (Pure Tone) 32772 2012 MONO OROZCO Annual hearing test no sts noted DoD Ear mold/insert, disposable, any type 2012 MONO OROZCO Spectacles Services Fitting Monofocal Except For Aphakia Spectacles Services Fitting Monofocal Except For Aphakia 41573 2011 CECIL XIE Spectacles Services Fitting Monofocal Except For Aphakia Spectacles Services Fitting Monofocal Except For Aphakia 70299 2011 CECIL XIE FOC and BCGs [facility] Determination Of Refractive State Determination Of Refractive State 26439 2011 CECIL XIE Ophthalmological Prior Patient Start Comprehensive Care Ophthalmological Prior Patient Start Comprehensive Care 63548 2011 CECIL XIE Patient Counseling Medical Management Five To Eight Patients Patient Counseling Medical Management Five To Eight Patients 67073 2011 CELESTE NYASIA T [facility] Threshold Audiogram (Pure Tone) Threshold Audiogram (Pure Tone) 13908 2011 HUI CERRATO Ear mold/insert, disposable, any type 2011 HUI CERRATO Patient education, not otherwise cla ified, non-physician provider, individual, per se ion 2011 HUI CERRATO Orthopedic shoe addition, insole, rubber 2011 STACI PETERS [facility] Physical Therapy Education Orthotics Training 2011 STACI PETERS Time In 1312/Time Out 1322 x 10 min: Pt issued OTS Spenco semi-rigid insoles for wear with all footwear. Instructed pt in proper wear, adjustments prn. [facility] Physical Therapy Service Evaluation Physical Therapy Service Evaluation 34071 2011 STACI PETERS [facility] Determination Of Refractive State Determination Of Refractive State 58614 2010 YEN AZAR [facility] Ophthalmological New Patient Start Comprehensive Care Ophthalmological New Patient Start Comprehensive Care 78807 2010 YEN AZAR [facility] Chiropractic Manip Treatmt (CMT) Spinal Three To Four Region Chiropractic Manip Treatmt (CMT) Spinal Three To Four Region 43565 TERELL CHOWDARY [facility] Chiropractic Manip Treatmt (CMT) Spinal One To Two Regions Chiropractic Manip Treatmt (CMT) Spinal One To Two Regions 86201 TERELL CHOWDARY [facility] Modalities Electrical Stimulation Unattended Modalities Electrical Stimulation Unattended 72769 TERELL CHOWDARY Modalities Heat Hot Packs Modalities Heat Hot Packs 60188 TERELL CHOWDARY Physical Therapy Service Evaluation Low Complexity Physical Therapy Service Evaluation Low Complexity 36054 BART GUZMÁN [facility] Physical Therapy: ___ Se ion Segments, 15 Minutes Each Physical Therapy: ___ Session Segments, 15 Minutes Each 93697 GUZMÁNBART [facility] Osteopathic Manip Treatment (OMT) 1-2 Body Regions Involved Osteopathic Manip Treatment (OMT) 1-2 Body Regions Involved 62473 GUZMÁN, BART HVLAT to lumbar region to improve facet glide d/t facet impingement. Soft tissue cupping to reduce muscular tension DoD Exercise equipment PERALT A, BART Stretch strap [facility] Modalities Cryotherapy Cold Packs Modalities Cryotherapy Cold Packs 42647 TERELL CHOWDARY Preventive Medicine Administration Of Health Risk Questionnaire Patient-Focused Preventive Medicine Administration Of Health Risk Questionnaire Patient-Focused 71454 GREGORY XIE Brief communication technology-based service, e.g. virtual check-in, by a physician or other qualified health care profbelinda aly who can report evaluation and management services, provided to an established patient, not originating from a related E/M service provided within the previous 7 days nor leading to an E/M service or procedure within the next 24 hours or soonest available appointment; 5-10 minutes of medical discu ion GREGORY XIE Patient Counseling Medical Management Individual Patient Patient Counseling Medical Management Individual Patient 09979 CHICO BULLOCK DoD Waiver services; not otherwise specified (NOS) CHICO BULLOCK 5 min phone apt; 10 min note & coordination [facility] Non-Physician Phone Call To Patient/Provider Brief (5-10min) Non-Physician Phone Call To Patient/Provider Brief (5-10min) 77916 DIAN CANAS [facility] Social History Combined list of available smoking, tobacco, and other social history from [facility] Defense and 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 Social History Type Response Date Comment [facility] e Sex Representation Male 08/03/2021 Unknow n Organization Tobacco Cigarette use: Never-cigarette user. Other Tobacco use: Never-other tobacco user (not cigarettes). Ambulatory Pharmacy Sexual Orientation Ambula tory Pharmacy Gender identity Ambulator y Pharmacy This section is an empty social history section. DoD Assessment and Plan Combined list of future care activities from Department of Defense and Veterans Affairs facilities (e.g., assessment and plan notes, appointments, orders, and referrals). Additional future care activities may be listed in the Plan of Care section. Result Assessment and Plan Date Source Assessment and Plan Extracted from:Title : [facility] Viral GE Author: SHERICE SANCHES PA Date: 12/16/24 1. G astroenteritis 34 Years o ld M c /o N/V/D a nd abd pain x 1 day(s). Denies h ematemesis, h ematochezia. VS notable for HR 107. Repeat 101. BP 143/96. Repeat 131/80. Mild TTP abdomen d iffusely, otherwise PE unremarkable. N egative Mcnally sign. Likely viral G E v s foodborne illness. Tachycardia likely d/t current illness. - Discussed supportive care - Advised to avoid anti-diarrhea meds - Zofran O DT 4 mg prn - Quarters placed f or 4 8 h rs - ED precautions given - F/u p rn. Will consider labs and i maging if no improvement Orders: ondansetron(Zofran ODT 4 mg oral tablet, disintegrating), 1 tab(s), Oral, every 8 hr, PRN nausea/vomiting, # 30 tab(s), 0 total refill(s), Acute, 12/26/2024, Pharmacy: [id number] [External Rx] The patient (is) World Wide Qualified. AM Dispo: Non-Fly Cleared for AFSC/MOS Duties: Yes Cleared for continued service: Y es Cleared for mobility duties: Y es Cleared for participation in physical fitness program: Y es PHA/MHA/DRHA: U TD Visit deployment related: N o Profile: N/A MEB in progress: N o IMR/ASIMS Status: Y marisol Medications reconciled. Pt verbalized understanding and agreement. 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 IMR Status: Juliet vergaradinorah Arming Status: S ervice member does not arm _ Reviewed visitor services information assistant's c ompleted PHA record review and M HERNANDEZ, and IMR status. ? MHA completed in ASIMS at prior visit, reviewed and copied to this record. Editing Clerk with no acute MH concerns or questions on mental health resources documented in MHA. Member not seen or examined, administrative record review only. Preventative services not reviewed as part of PHA process, readiness review only, PHA d oes not take the place of routine wellness or PCM visit. Reviewed readiness immunizations s tatus. Reviewed readiness lab. Reviewed o ccupational health examinations status, member to schedule any overdue items with the [facility], member not contacted. Any non-readiness medical concerns to be addressed with PCM. Medication list reviewed for any unaddressed retention limiting conditions o r concerns; however member not contacted a nd interviewed a t time of visit. A nv recent medication changes and/or concerns will n eed to be addressed by PCM team. Time spent in asynchronous patient care was approximately 1 0min. PHA completed and ASIMS updated. Any retention a nd/or readiness issues identified while conducting the PHA have been communicated to PCM via [employer]. clergy member to follow up with simone bazan PCM for all other c oncerns. 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 Pt denies any SI/HI/TX at this time. Pt given MH resources if the need arises. MHA signed in ASIMS. PVUA, no further questions or concerns. IMR Yellow- PHA Also completed PD MHA as pasted above. Extracted from:Title: WALK-IN BP Author: NINO STOCKTON Date: 12/29/23 1. E levated blood pressure Reviewed BP which is WNL for JNC 8 goals. Cleared for deployment. See [facility] CSSP for further information. Maj Nino Stockton PA-C [address] [place], [place] Extracted from:Title: CSSP Author: PREET MUNOZ, EMT Date: 12/29/23 [facility] Current Visit No Results Found Extracted from:Title: Immunizations Author: TAHIR GRANDA, EMT Date: 12/04/23 measles/mumps/rubella virus vaccine: 0.5 mL (12/04/23 09:30:00) Diagnosis: Vaccination given Comment: Other status: M-M-R II; 0.5 mL, SubCutaneous, Injection, Vaccine, First Dose: 12/04/2023 09:30:00 PARTS INSPECTOR, 12/04/2023 09:30:00 PARTS INSPECTOR (Completed) by LIZZIE LYONS MD Imadm Prq Id Subq/Im Njxs 1 Vaccine [id number]; 12/04/2023 09:31:00 PARTS INSPECTOR (Completed) by LIZZIE LYONS MD End of Orders Extracted from:Title: Immunizations Author: TAHIR GRANDA, EMT Date: 10/25/23 Encounter has Screening Questions previously completed. Refer to screening questions for additional information of vaccination given and clearance. More information is also available in the Immunization Tab for patient's history of vaccinations. Closing Encounter for administrative completion. 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 Sade hansen is cleared for PHA and to participate in AF fitness program without restriction. S ee attached ANNUAL PERIODIC HEATLH ASSESSMENT note. Sade hansen denied having a splenectomy in the past. A vailable l abs and radiology reports since last Annual PHA were reviewed and addressed if not addressed prior to this visit. Appointment was completed via telephone, and lasted 5-10 min. Future Scheduled TestsLaboratoryRepository Sample, Serum 07/18/24 12/16/[address] [place] [address] MIGUEL-Blake Assessment and Plan Extracted from:Title : [facility] Viral GE Author: SHERICE SANCHES PA Date: 12/16/24 1. G astroenteritis 34 Years o ld M c /o N/V/D a nd abd pain x 1 day(s). Denies h ematemesis, h ematochezia. VS notable for HR 107. Repeat 101. BP 143/96. Repeat 131/80. Mild TTP abdomen d iffusely, otherwise PE unremarkable. N egative Mcnally sign. Likely viral G E v s foodborne illness. Tachycardia likely d/t current illness. - Discussed supportive care - Advised to avoid anti-diarrhea meds - Zofran O DT 4 mg prn - Quarters placed f or 4 8 h rs - ED precautions given - F/u p rn. Will consider labs and i maging if no improvement Orders: ondansetron(Zofran ODT 4 mg oral tablet, disintegrating), 1 tab(s), Oral, every 8 hr, PRN nausea/vomiting, # 30 tab(s), 0 total refill(s), Acute, 12/26/2024, Pharmacy: [id number] [External Rx] The patient (is) World Wide Qualified. AM Dispo: Non-Fly Cleared for AFSC/MOS Duties: Yes Cleared for continued service: Y es Cleared for mobility duties: Y es Cleared for participation in physical fitness program: Y es PHA/MHA/DRHA: U TD Visit deployment related: N o Profile: N/A MEB in progress: N o IMR/ASIMS Status: Beverly damon Medications reconciled. Pt verbalized understanding and agreement. 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 IMR Status: Juliet mayberry Arming Status: S ervice member does not arm _ Reviewed visitor services information assistant's c ompleted PHA record review and M HERNANDEZ, and IMR status. ? MHA completed in ASIMS at prior visit, reviewed and copied to this record. Editing Clerk with no acute MH concerns or questions on mental health resources documented in MHA. Member not seen or examined, administrative record review only. Preventative services not reviewed as part of PHA process, readiness review only, PHA d oes not take the place of routine wellness or PCM visit. Reviewed readiness immunizations s tatus. Reviewed readiness lab. Reviewed o ccupational health examinations status, member to schedule any overdue items with the [facility], member not contacted. Any non-readiness medical concerns to be addressed with PCM. Medication list reviewed for any unaddressed retention limiting conditions o r concerns; however member not contacted a nd interviewed a t time of visit. A nv recent medication changes and/or concerns will n eed to be addressed by PCM team. Time spent in asynchronous patient care was approximately 1 0min. PHA completed and ASIMS updated. Any retention a nd/or readiness issues identified while conducting the PHA have been communicated to PCM via [employer]. clergy member to follow up with simone bazan PCM for all other c oncerns. 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 Pt denies any SI/HI/TX at this time. Pt given MH resources if the need arises. MHA signed in ASIMS. PVUA, no further questions or concerns. IMR Yellow- PHA Also completed PD MHA as pasted above. Extracted from:Title: WALK-IN BP Author: NINO STOCKTON Date: 12/29/23 1. E levated blood pressure Reviewed BP which is WNL for JNC 8 goals. Cleared for deployment. See [facility] CSSP for further information. Maj Nino Stockton PA-C [facility] [address] [place], [place] Extracted from:Title: CSSP Author: PREET MUNOZ EMT Date: 12/29/23 [facility] Current Visit No Results Found Extracted from:Title: Immunizations Author: TAHIR GRANDA, EMT Date: 12/04/23 measles/mumps/rubella virus vaccine: 0.5 mL (12/04/23 09:30:00) Diagnosis: Vaccination given Comment: Other status: M-M-R II; 0.5 mL, SubCutaneous, Injection, Vaccine, First Dose: 12/04/2023 09:30:00 PARTS INSPECTOR, 12/04/2023 09:30:00 PARTS INSPECTOR (Completed) by LIZZIE LYONS MD Imadm Prq Id Subq/Im Njxs 1 Vaccine [id number]; 12/04/2023 09:31:00 PARTS INSPECTOR (Completed) by LIZZIE LYONS MD End of Orders Extracted from:Title: Immunizations Author: TAHIR GRANDA, EMT Date: 10/25/23 Encounter has Screening Questions previously completed. Refer to screening questions for additional information of vaccination given and clearance. More information is also available in the Immunization Tab for patient's history of vaccinations. Closing Encounter for administrative completion. 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 Sade hansen is cleared for PHA and to participate in AF fitness program without restriction. S ee attached ANNUAL PERIODIC HEATLH ASSESSMENT note. Sade hansen denied having a splenectomy in the past. A vailable l abs and radiology reports since last Annual PHA were reviewed and addressed if not addressed prior to this visit. Appointment was completed via telephone, and lasted 5-10 min. Future Scheduled TestsLaboratoryRepository Sample, Serum 07/18/24 12/16/2024 [id number] Assessment and Plan Extracted from:Title : [facility] Viral GE Author: SHERICE SANCHES PA Date: 12/16/24 1. G astroenteritis 34 Years o ld M c /o N/V/D a nd abd pain x 1 day(s). Denies h ematemesis, h ematochezia. VS notable for HR 107. Repeat 101. BP 143/96. Repeat 131/80. Mild TTP abdomen d iffusely, otherwise PE unremarkable. N egative Mcnally sign. Likely viral G E v s foodborne illness. Tachycardia likely d/t current illness. - Discussed supportive care - Advised to avoid anti-diarrhea meds - Zofran O DT 4 mg prn - Quarters placed f or 4 8 h rs - ED precautions given - F/u p rn. Will consider labs and i maging if no improvement Orders: ondansetron(Zofran ODT 4 mg oral tablet, disintegrating), 1 tab(s), Oral, every 8 hr, PRN nausea/vomiting, # 30 tab(s), 0 total refill(s), Acute, 12/26/2024, Pharmacy: [id number] [External Rx] The patient (is) World Wide Qualified. AM Dispo: Non-Fly Cleared for AFSC/MOS Duties: Yes Cleared for continued service: Y es Cleared for mobility duties: Y es Cleared for participation in physical fitness program: Y es PHA/MHA/DRHA: U TD Visit deployment related: N o Profile: N/A MEB in progress: N o IMR/ASIMS Status: Beverly damon Medications reconciled. Pt verbalized understanding and agreement. 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 IMR Status: Juliet mayberry Arming Status: S ervice member does not arm _ Reviewed visitor services information assistant's c ompleted PHA record review and M HERNANDEZ, and IMR status. ? MHA completed in [facility] at prior visit, reviewed and copied to this record. Editing Clerk with no acute MH concerns or questions on mental health resources documented in MHA. Member not seen or examined, administrative record review only. Preventative services not reviewed as part of PHA process, readiness review only, PHA d oes not take the place of routine wellness or PCM visit. Reviewed readiness immunizations s tatus. Reviewed readiness lab. Reviewed o ccupational health examinations status, member to schedule any overdue items with the [facility], member not contacted. Any non-readiness medical concerns to be addressed with PCM. Medication list reviewed for any unaddressed retention limiting conditions o r concerns; however member not contacted a nd interviewed a t time of visit. A nv recent medication changes and/or concerns will n eed to be addressed by PCM team. Time spent in asynchronous patient care was approximately 1 0min. PHA completed and ASIMS updated. Any retention a nd/or readiness issues identified while conducting the PHA have been communicated to PCM via [employer]. clergy member to follow up with simone bazan PCM for all other c oncerns. 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 Pt denies any SI/HI/TX at this time. Pt given MH resources if the need arises. MHA signed in ASIMS. PVUA, no further questions or concerns. IMR Yellow- PHA Also completed PD MHA as pasted above. Extracted from:Title: WALK-IN BP Author: NINO STOCKTON Date: 12/29/23 1. E levated blood pressure Reviewed BP which is WNL for JNC 8 goals. Cleared for deployment. See [facility] CSSP for further information. Maj Nino Stockton PA-C [facility] [address] [place], [place] Extracted from:Title: CSSP Author: PREET MUNOZ, EMT Date: 12/29/23 [facility] Current Visit No Results Found Extracted from:Title: Immunizations Author: TAHIR GRANDA, EMT Date: 12/04/23 measles/mumps/rubella virus vaccine: 0.5 mL (12/04/23 09:30:00) Diagnosis: Vaccination given Comment: Other status: M-M-R II; 0.5 mL, SubCutaneous, Injection, Vaccine, First Dose: 12/04/2023 09:30:00 PARTS INSPECTOR, 12/04/2023 09:30:00 PARTS INSPECTOR (Completed) by LIZZIE LYONS MD Imadm Prq Id Subq/Im Njxs 1 Vaccine [id number]; 12/04/2023 09:31:00 PARTS INSPECTOR (Completed) by LIZZIE LYONS MD End of Orders Extracted from:Title: Immunizations Author: TAHIR GRANDA, EMT Date: 10/25/23 Encounter has Screening Questions previously completed. Refer to screening questions for additional information of vaccination given and clearance. More information is also available in the Immunization Tab for patient's history of vaccinations. Closing Encounter for administrative completion. 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 Sade hansen is cleared for PHA and to participate in AF fitness program without restriction. S ee attached ANNUAL PERIODIC HEATLH ASSESSMENT note. Sade hansen denied having a splenectomy in the past. A vailable l abs and radiology reports since last Annual PHA were reviewed and addressed if not addressed prior to this visit. Appointment was completed via telephone, and lasted 5-10 min. Future Scheduled TestsLaboratoryRepository Sample, Serum 07/18/24 12/16/2024 Unknown Organization Functional Status Combined list of recent functional and cognitive assessments recorded at [facility] ([facility]VA Functional [place] Measurement (FIM) Scale: 1 = Total Assistance (Subject = 0% +), 2 = Maximal Assistance (Subject = 25% +), 3 = Moderate Assistance (Subject = 50% +), 4 = Minimal Assistance (Subject = 75% +), 5 = Supervision, 6 = Modified [place] (Device), 7 = Complete [place] (Timely, Safely). Assessment Date/Time Source Assessment Type Assessment Skill Assessment Score Assessment Details No data available for this section
--- NOTE | 2024-12-16 18:46 | ECG_ITS ---
Test Date: 2024-12-16 19:23:58 Measurements Intervals [place] Rate: 64 P: 57 OR: 149 QRS: 7 QRSD: 101 T: 12 QT: 363 QTc: 377 Interpretive Statements SINUS RHYTHM No previous ECG available for comparison Electronically Signed On 12-17-2024 14:35:53 CDT by Low Little M.D.
[2024-12-16] MEDS: PANTOPRAZOLE SODIUM IV 40 MG VIAL IV PUSH (19:16)
== END 2024-12-16 20:09 | disposition home or self-care (01) ==
PROVIDERS: Emergency Provider Student in an Organized Health Care Education/Training Program
DX: K29.70 Gastritis, unspecified, without bleeding (principal); K20.90 Esophagitis, unspecified without bleeding; Z20.822 Contact with and (suspected) exposure to COVID-19; I10 Essential (primary) hypertension; E78.5 Hyperlipidemia, unspecified; K57.90 Diverticulosis of intestine, part unspecified, without perforation or abscess without bleeding
CPT/HCPCS: 36415; 74177; 80053; 81001; 83690; 85025; 87636; 93005; 96374; 96375; 96376; 99284; A9270; J1885; J2270; J2405; J2470; J7120; Q9967

== ENCOUNTER 2025-10-06 19:31 | Emergency (ER) | payer OTHER, SELFPAY ==
[2025-10-06 19:39] VITALS: BP 152/106; PULSE 120; RESP 18; TEMP 37.7; O2SAT 100
[2025-10-06] MEDS: ACETAMINOPHEN 500 MG TABLET 1000 MG PO (19:48)
[2025-10-06 20:29] LABS: Influenza A QL RT-PCR Negative (Negative); Influenza B QL RT-PCR Negative (Negative); RSV RNA, RT-PCR Negative (Negative); SARS-CoV-2 RNA PCR Positive (Negative)
[2025-10-06 22:07] VITALS: BP 153/102; PULSE 100; RESP 18; TEMP 37; O2SAT 100
--- NOTE | 2025-10-06 22:07 | ED_ITS ---
HPI - URI/Sore Throat General Chief Complaint: Upper Respiratory Infection Stated Complaint: Flu like symptoms Time Seen by Provider: 10/06/25 22:02 Source: patient Mode of arrival: ambulatory Limitations: no limitations History of Present Illness HPI Narrative: This is a 35-year-old male that presents to the emergency department for cold symptoms. Ongoing over the last 3 days. Reports fever, cough, congestion, sore throat. Related Data Allergies Allergy/AdvReac Type Severity Reaction Status Date / Time No Known Allergies Allergy Verified 10/06/25 19:32 Review of Systems Review of Systems: All systems reviewed & are unremarkable except as noted in HPI and below PMFSH Past Medical History Medical History (Updated 10/06/25 @ 22:09 by Nancy Thomas PA-C) Hyperlipidemia Hypertension Exam Narrative: GENERAL: Well-appearing, well-nourished, and in no acute distress. HEAD: Normocephalic, atraumatic. EYES: EOMI. ENT: Nares clear, no rhinorrhea or epistaxis. Mucous membranes moist. Oropharynx without tonsillar hypertrophy exudate or other lesions. Bilateral TMs pearly manrique non-bulging NECK: Supple. No adenopathy or masses. CHEST: Clear to auscultation. No respiratory distress. No wheezes rales or rhonchi HEART: Regular rate and rhythm. No murmur heard. Normal peripheral pulses. EXTREMITIES: Normal range of motion. No edema. SKIN: Warm, dry, no rash. NEURO: No focal deficits. Alert and oriented x3. PSYCH: Normal mood and affect Course Vital Signs Vital signs: Vital Signs Temperature 99.8 F H 10/06/25 19:39 Pulse Rate 120 H 10/06/25 19:39 Respiratory Rate 18 10/06/25 19:39 Blood Pressure 152/106 H 10/06/25 19:39 Pulse Oximetry 100 10/06/25 19:39 Oxygen Delivery Room Air 10/06/25 19:39 Temperature 98.6 F 10/06/25 22:07 Pulse Rate 100 10/06/25 22:07 Respiratory Rate 18 10/06/25 22:07 Blood Pressure 153/102 H 10/06/25 22:07 Pulse Oximetry 100 10/06/25 22:07 Oxygen Delivery Room Air 10/06/25 22:07 [facility] MDM Narrative Medical decision making narrative: Patient presents to the emergency department for cold symptoms. Tachycardic, borderline febrile upon arrival. Given Tylenol with relief. Oxygen saturations 100% on room air. Lungs are clear on exam. COVID-19 positive. Patient was instructed on continued symptomatic care of viral infection. Given warnings to return to the ER Differential Diagnosis Differential Diagnosis: COVID-19, influenza, pneumonia Lab Data MDM Lab Attestation statement: I personally reviewed the patient's lab results. Labs: Lab Results 10/06/25 Range/Units 19:43 Influenza A (RT-PCR) Negative (Negative) Influenza B (RT-PCR) Negative (Negative) RSV (RT-PCR) Negative (Negative) SARS-CoV-2 RNA (RT-PCR) Positive A (Negative) Critical Care Time Critical Care Time Critical Care Time: No Discharge Plan Discharge Clinical Impression: COVID-19 Patient Disposition: Home Condition: Stable Instructions: COVID-19 (Coronavirus Disease 2019) (ED), How to Recover from COVID-19 at Home (ED) Additional Instructions: Return to the emergency department for worsening symptoms, or any other concerns Remain well-hydrated, get plenty of rest. Take Tylenol or Motrin [id number] for pain as needed. Flonase for nasal congestion. Zyrtec for runny nose. Lozenges or Chloraseptic spray for sore throat. Follow up with your primary care doctor Patient Language: Luxembourger Prescriptions: No Action famotidine [Pepcid] 20 mg tablet 20 mg PO BID Qty: 20 0RF alum-mag hydroxide-simeth [Maalox Advanced] 200-200-20 mg/5 mL suspension 15 ml PO QID PRN (Reason: indigestion) Qty: 3000 0RF Rx Instructions: administer between meals and at bedtime ondansetron 4 mg tablet,disintegrating 4 mg PO Q8H PRN (Reason: nausea and vomiting) Qty: 10 0RF pantoprazole [Protonix] 40 mg tablet,delayed release (DR/EC) 40 mg PO HS 28 Days Qty: 28 0RF Follow-up/Referrals: PHYSICIAN NOT ON STAFF,NONSTAFF [Primary Care Provider]
--- OUTSIDE RECORDS SUMMARY | 2025-10-06 22:12 | XMS_ITS | Continuity of Care Document ---
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 It does not include entries that were removed or entered in error. Problem Status Onset Date Problem Type Date of Resolution Comments Source Encounter for issue of other medical certificate Active 08/14/2025 Diagnosis [facility] Bilateral myopia of eyes Active 05/10/2017 Condition [...] [facility] ASSESSMENT, POST DEPLOYMENT, DOCUMENTED ON BS8676 (PDHRA) Active Condition 0055C-375t h [facility] Astigmatism Active Condition 0055C-375t h [facility] [place] I diagnosis Active Condition 0055C -375t h [facility] [place] II diagnosis Active Condition 0055 C-375t h [...] [facility] Patient condition assessed Active Condition 0055C-375t h [facility] Patient education Active Condition 0055 C-375t h [facility] Psychological finding Active Condition 0055C-375t h [facility] Segmental [...] 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 [id number] Active Condition DoD ankle sprain left Active Condition DoD 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 DoD 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 documented on HC1986 Active Condition DoD nicotine dependence Active Condition [...] Condition DoD dermatophytosis tinea capitis Inactive Condition DoD patellar chondromalacia Active Condition DoD location of [...] DoD conjunctivitis acute right eye Inactive Condition [facility] visit for: laboratory Inactive Condition DoD Laboratory Studies Active Condition DoD visit for: services physical Active Condition DoD no psychiatric diagnosis on axis II Active Condition DoD no psychiatric diagnosis or condition on axis I Active Condition [facility] visit for: screening exam alcoholism Active Condition DoD upper respiratory infection Active Condition DoD multiple environmental allergies Active Condition DoD Patient Education Active Condition DoD Medications Combined list of outpatient medications from Department of Defense and 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Medications provided include 1) outpatient medications from the last 15 months, and 2) patient-reported medications. Medication Details Route Status Indication(s) Patie nt Instructions Prescription Expires Prescription Number Last Dispense Date Ordering Provider Order Date Order Qty Source Advil Oral, every 6 hr, 0 total refill(s ), Maintena nce Oral (given by mouth) Ordered 2024 0055C-3 [facility] ciprofloxac in 500 mg oral tablet 1 tab(s), Oral, As Directed , # 6 tab(s), 0 total refill(s ), Acute, 01/11/24 2:23:10 PM CDT, USE WHEN COMMANDE R DIRECTED , Pharmacy : [facility] Oral (given by mouth) Discont inued Pure hypercholester olemia, unspecified; ASSESSMENT, PRE-DEPLOYMENT , DOCUMENTED ON AO5208; Elevated blood-pressure reading, without diagnosis of hypertension 01/11/2024 4 2023 6.0 0055C-3 [facility] Crestor 20 mg oral tablet 1 tab(s), Oral, Daily, for choleste rol, # 180 tab(s), 0 total refill(s ), Hard Stop, Deployme nt prescrip tion, Pharmacy : [facility] Oral (given by mouth) Complet ed 08/08/2024 4 2023 180.0 0055C-3 [facility] Crestor 20 mg oral tablet 1 tab(s), Oral, Daily, for choleste rol, # 90 tab(s), 3 total refill(s ), Maintena nce, Deployme nt prescrip tion, Pharmacy : [facility] Oral (given by mouth) Ordered 5 2023 90.0 0055C-[address] [place] [address] Blake diazePAM 10 mg auto injector 10 mg, IntraMus cular, As Directed , # 2 mL, 0 total refill(s ), Acute, 01/11/24 2:23:10 PM CDT, USE WHEN COMMANDE R DIRECTED , Pharmacy : [facility] IntraM uscula r (in a muscle ) Discont inued Pure hypercholester olemia, unspecified; Elevated blood-pressure reading, without diagnosis of hypertension; ASSESSMENT, PRE-DEPLOYMENT , DOCUMENTED ON [id number] 01/11/2024 4 2023 2.0 0055C-[address] [place], [place] [address]BRANDT Lozano DuoDote 2.1 mg/0.7 mL-600 mg/2 mL intramuscul ar solution 8.1 mL, IntraMus cular, As Directed , Once, # 8.1 mL, 0 total refill(s ), Maintena nce, USE WHEN COMMANDE R DIRECTED , Pharmacy : [facility] IntraM uscula r (in a muscle ) Discont inued Pure hypercholester olemia, unspecified; Elevated blood-pressure reading, without diagnosis of hypertension; ASSESSMENT, PRE-DEPLOYMENT , DOCUMENTED ON [id number] 01/11/2024 4 2023 8.1 0055C-[address] [place] [address] Blake escitalopra m 10 mg oral tablet See Instruct ions, take one tablet every day for depressi on and anxiety, # 90 tab(s), 0 total refill(s ), Hard Stop, 30 days, Pharmacy : [facility] Complet ed 08/27/2025 5 2024 90.0 0055C-[address] [place] [address] Blake escitalopra m 10 mg oral tablet See Instruct ions, take one tablet every day for depressi on and anxiety, # 90 tab(s), 0 total refill(s ), Maintena nce, 30 days, Pharmacy : [facility] #[id number] Ordered 2024 90.0 0055C[facility]3 [facility] escitalopra m 10 mg oral tablet See Instruct ions, Take one-half tablet by mouth every day for 7 days, then take one tablet every day for depressi on and anxiety, # 57 tab(s), 0 total refill(s ), Maintendustin fange, 30 days, Pharmacy : [facility] Discont inued 04/01/2025 5 2024 57.0 0055C-3 [facility] MED[facility]T Lozano lisinopril 10 mg oral tablet 1 tab(s), Oral, Daily, for blood pressure , # 180 tab(s), 0 total refill(s ), Hard Stop, Deployme nt prescrip tion, Pharmacy : [facility] Oral (given by mouth) Complet ed 08/08/2024 4 2023 180.0 0055C-3 [facility] MED[facility]ANDT Lozano lisinopril 10 mg oral tablet 1 tab(s), Oral, Daily, for blood pressure , # 90 tab(s), 3 total refill(s ), Mainala leoncioe, Deployme nt prescrip tion, Pharmacy : [facility] Oral (given by mouth) Ordered 5 2023 90.0 0055C-3 [facility] MED[facility]T Lozano lisinopril 10 mg oral tablet 1 tab(s), Oral, Daily, for blood pressure , # 90 tab(s), 3 total refill(s ), Mainmarcos ore, Pharmacy : [facility] Oral (given by mouth) Discont inued 08/08/2024 4 2023 90.0 0055C-3 [facility] Lozano potassium iodide 130 mg oral tablet 1 tab(s), Oral, Daily, PRN while protecti on is needed, # 14 tab(s), 0 total refill(s ), Acute, USE WHEN COMMANDE R DIRECTED , Pharmacy : [facility] Oral (given by mouth) Discont inued ASSESSMENT, PRE-DEPLOYMENT , DOCUMENTED ON [id number] 01/11/2024 4 2023 14.0 0055C-3 [facility] Lozano pyRIDostigm ine 30 mg oral tablet 1 tab(s), Oral, every 8 hr, # 42 tab(s), 0 total refill(s ), Maintena ore, Pharmacy : [facility] Oral (given by mouth) Discont inued Pure hypercholester olemia, unspecified; ASSESSMENT, PRE-DEPLOYMENT , DOCUMENTED ON [id number]; Elevated blood-pressure reading, without diagnosis of hypertension 01/11/2024 4 2023 42.0 0055C-[address] [place] [address] Blake Reactive Skin Decontamina tion Lotion See Instruct ions, Use as directed , # 1 EA, 0 total refill(s ), Maintena nce, USE WHEN COMMANDE R DIRECTED , Supply, Pharmacy : [facility] Discont inued Pure hypercholester olemia, unspecified; Elevated blood-pressure reading, without diagnosis of hypertension; ASSESSMENT, PRE-DEPLOYMENT , DOCUMENTED ON [id number] 01/11/2024 4 2023 1.0 0055C-[address] [place] [address] rosuvastati n 20 mg oral tablet 90 tab(s), 0 Refill(s ), 0 total refill(s ), Soft Stop Discont inued 11/06/20232023 0055C-3 [facility] rosuvastati n 20 mg tablet See dose instruct ions in comments , # 90 EA, 3 total refill(s ), Acute Complet ed 02/12/2024 4 2023 90.0 Ambulat ory Pharmac y Tums mg, Chew, Daily, 0 total refill(s ), Maintena nce Chew Ordered 2024 0055C-3 [facility] valACYclovi r 1 g oral tablet See Instruct ions, At onset of outbreak take two tabs (2g). 12hrs later take 2 more tabs (2g), for total of 4g per outbreak ., # 20 tab(s), 1 total refill(s ), Soft Stop, Pharmacy : [facility] , Viral infectio n, treatmen t Ordered Herpesviral [herpes simplex] infections 2024 20.0 0055C-[address] [place] [address] valACYclovi r 1 g oral tablet See Instruct ions, At onset of outbreak take two tabs (2g). 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 12hrs later take 2 more tabs (2g), for total of 4g per outbreak ., # 20 tab(s), 1 total refill(s ), Soft Stop, Pharmacy : [facility] #[id number], Viral infectio n, treatmen t Discont inued Herpesviral [herpes simplex] infections 08/29/20252024 20.0 0055C-[address] [place] [address] Blake valACYclovi r 500 mg oral tablet 3 total refill(s ) Discont inued 11/06/20232023 No Facilit y Access Zofran ODT 4 mg oral tablet, disintegrat ing 1 tab(s), Oral, every 8 hr, PRN nausea/v omiting, # 30 tab(s), 0 total refill(s ), Acute, 12/26/24 12:00:00 AM CDT, Pharmacy : [facility] #[id number] Oral (given by mouth) Complet ed 12/26/20242024 30.0 0055C-[address] [place] [address] Blake Allergies, Adverse Reactions, Alerts Combined list of allergies from Department of Defense and 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 It does not include entries that were removed or entered in error. Substance Category Reaction Severity Reaction type Status Date Reported Comments Source No Known Allergies Drug allergy (disorder) active 06/19/2018 [employer] Immunizations Combined list of available immunizations from the Department of Defense and 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 Comments Source influenza, injectable, quadrivalent- pf 2020 FANNY CEE [id number] 150 complet ed Result Comment: Route: Unknown Manufactu rer: [facility] (SK) 0055C-3 75[facility] Influenza, injectable, quadrivalent, preservative free 1 2020 [id number] 150 [employer]line (SKB) complet ed Influenza , injectabl e, quadrival ent, preservat sunny free DoD COVID Vaccine Pfizer 2020 [id number] 208 PFIZER complet ed COVID Vaccine Pfizer 01/06/21 Given Ambulat ory Pharmac y SARS-COV-2 (COVID-19) vaccine, mRNA, spike protein, LNP, preservative free, 30 mcg/0.3mL dose 2 2020 [id number] 208 Pfizer, Inc (PFR) complet ed SARS-COV- [...] dose DoD influenza virus vaccine, inactivated 2019 [id number] 88 Seqirus complet ed influenza virus vaccine, inactivat ed 07/31/20 Given Ambulat ory Pharmac y Influenza, injectable, Madin Lesley Canine Kidney, quadrivalent with preservative 1 2019 [id number] 186 Seqirus (SEQ) comple t ed Influenza , injectabl e, Madin [place] Canine Kidney, quadrival ent with preservat sunny DoD influenza, injectable, quadrivalent- pf 2018 [id number] 150 Se[employer]irus complet ed influenza , injectabl e, quadrival ent-pf 08/29/19 Given Ambulat ory Pharmac y Influenza, injectable, quadrivalent, preservative free 0 2018 [id number] 150 Se[employer]irus (SEQ) complet ed Influenza , injectabl e, quadrival ent, preservat sunny free DoD tetanus-dipht h toxoids (Td) adult/adol 2018 Body, whole [id number] 09 [employer] complet ed tetanus-d iphth toxoids (Td) adult/ado l 02/20/19 Given Ambulat ory Pharmac y tetanus and diphtheria toxoids, adsorbed, preservative free, for adult use (2 Lf of tetanus toxoid and 2 Lf of diphtheria toxoid) 1 2018 JAH DOTY [id number] 09 [facility] ([facility]) complet ed tetanus and diphtheri a toxoids, adsorbed, preservat sunny free, for adult use (2 Lf of tetanus toxoid and 2 Lf of diphtheri a toxoid) DoD influenza, injectable, quadrivalent- pf 2017 [id number] 150 [employer] complet ed influenza , injectabl e, quadrival ent-pf 07/11/18 Given Ambulat ory Pharmac y Influenza, injectable, quadrivalent, preservative free 11 2017 [id number] 150 Seqirus (SEQ) comple t ed Influenza [...] influenza, injectable, quadrivalent, contains preservative 0 2015 [id number] 158 [employer]line (SKB) complet ed influenza , injectabl e, quadrival ent, contains preservat sunny DoD influenza, seasonal, injectable-pf 2014 [id number] 140 [employer] Behring complet ed influenza , seasonal, injectabl e-pf 07/14/15 Given Ambulat ory Pharmac y Influenza, seasonal, injectable, preservative free 8 2014 [id number] 140 [facility] [place] [employer] (CSL) complet ed Influenza , seasonal, injectabl e, preservat sunny free DoD influenza, seasonal, injectable-pf 2013 [id number] 140 Novartis Pharmaceutica complet ed influenza , seasonal, injectabl e-pf 08/04/14 Given Ambulat ory Pharmac y Influenza, seasonal, injectable, preservative free 7 2013 [id number] 140 Nov[employer]is [employer] Teralynk Joaquin. (NOV) complet ed Influenza , seasonal, injectabl e, preservat sunny free DoD typhoid Vi capsular polysaccharid e vac 2012 [id number] 101 sanofi pasteur complet ed typhoid Vi capsular polysacch aride vac 08/05/13 Given Ambulat ory Pharmac y anthrax vaccine 2012 [id number] [employer] complet ed anthrax vaccine 08/05/13 Given Ambulat ory Pharmac y anthrax vaccine 4 2012 [id number] 24 [employer] [place] ([facility]) complet ed anthrax vaccine DoD typhoid Vi capsular polysaccharid e vaccine 2 2012 Q7813-0 101 Sanofi Pasteur (PMC) complet ed typhoid Vi capsular polysacch aride vaccine DoD influenza, seasonal, injectable-pf 2012 [id number] 140 sanofi pasteur complet ed influenza , seasonal, injectabl e-pf 05/31/13 Given Ambulat ory Pharmac y Influenza, seasonal, injectable, preservative free 0 2012 [id number] 140 Sanofi Pasteur (PMC) complet ed Influenza , seasonal, injectabl e, preservat sunny free DoD measles virus vaccine 0 2012 05 () Not Given measles virus vaccine DoD rubella virus vaccine 0 2012 06 () Not Given rubella virus vaccine DoD influenza, seasonal, injectable-pf 2011 [id number] 140 sanofi pasteur complet ed influenza , seasonal, injectabl e-pf 06/05/12 Given Ambulat ory Pharmac y Influenza, seasonal, injectable, preservative free 0 2011 [id number] 140 Sanofi Pasteur ([facility]) complet ed Influenza , seasonal, injectabl e, preservat sunny free DoD influenza, seasonal, injectable 2010 [id number] 141 sanofi pasteur complet ed influenza , seasonal, injectabl e 06/22/11 Given Ambulat ory Pharmac y Influenza, seasonal, injectable 4 2010 [id number] 141 Sanofi Pasteur ([facility]) complet ed Influenza , seasonal, injectabl e DoD anthrax vaccine 2010 [id number] 24 [employer] complet ed anthrax vaccine 02/04/11 Given Ambulat ory Pharmac y anthrax vaccine 3 2010 [id number] 24 [employer] [place] ([facility]) complet ed anthrax vaccine DoD anthrax vaccine 2009 [id number] 24 [employer] complet ed anthrax vaccine 08/31/10 Given Ambulat ory Pharmac y anthrax vaccine 2 2009 [id number] 24 [employer] [place] ([facility]) complet ed anthrax vaccine DoD influenza virus vaccine, live 2009 [id number] 111 [employer] comple t ed influenza virus vaccine, live 07/21/10 Given Ambulat ory Pharmac y vaccinia (smallpox) vaccine 2009 VV04-00 3A 75 [employer] complet ed vaccinia (smallpox ) vaccine 07/21/10 Given Ambulat ory Pharmac y typhoid Vi capsular polysaccharid e vac 2009 [id number] 101 sanofi pasteur complet ed typhoid Vi capsular polysacch aride vac 07/21/10 Given Ambulat ory Pharmac y anthrax vaccine 2009 [id number] 24 [employer] complet ed anthrax vaccine 07/21/10 Given Ambulat ory Pharmac y anthrax vaccine 1 2009 [id number] 24 [employer] [place] ([facility]) complet ed anthrax vaccine DoD vaccinia (smallpox) vaccine 1 2009 VV04-00 3A 75 [facility] ([facility]) complet ed vaccinia (smallpox ) vaccine DoD typhoid Vi capsular polysaccharid e vaccine 1 2009 [id number] 101 Sanofi Pasteur (PMC) complet ed typhoid Vi capsular polysacch aride vaccine DoD influenza virus vaccine, live, attenuated, for intranasal use 1 2009 [id number] 111 [employer] (MED) complet ed influenza virus vaccine, live, attenuate d, for intranasa l use DoD Novel influenza-H1N 1-09, injectable 2009 [id number] 1 127 Novartis Pharmaceutica ls complet ed Novel influenza -[id number], injectabl e 10/20/09 Given Ambulat ory Pharmac y Novel influenza-H1N 1-09, injectable 1 2009 [id number] 1 127 Novartis Pharmaceutica l Joaquin. (NOV) complet ed Novel influenza -[id number], injectabl e DoD influenza virus vaccine, live 2008 [id number] 111 [employer] comple t ed influenza virus vaccine, live 08/05/09 Given Ambulat ory Pharmac y influenza virus vaccine, live, attenuated, for intranasal use 1 2008 [id number] 111 [employer] (MED) complet ed influenza virus vaccine, [...] on DoD tuberculin purified protein derivative 2008 [id number] 96 sanofi pasteur complet ed tuberculi n purified protein derivativ e 01/25/09 Given Ambulat ory Pharmac y meningococcal A,C,Y,W-135 (MCV4P) 2008 [id number] 114 sanofi pasteur complet ed meningoco ccal A,C,Y,W-1 35 (MCV4P) 01/22/09 Given Ambulat ory Pharmac y poliovirus vaccine, inactivated 2008 [id number] 10 sanofi pasteur complet ed polioviru s vaccine, inactivat ed 01/22/09 Given Ambulat ory Pharmac y tetanus, diphtheria, acellular pertu is 2008 [id number] 115 [facility] complet ed tetanus, diphtheri a, acellular pertussis 01/22/09 Given Ambulat ory Pharmac y influenza virus vaccine,split 2008 [id number] 15 sanofi pasteur complet ed influenza virus vaccine,s plit 01/22/09 Given Ambulat ory Pharmac y poliovirus vaccine, inactivated 1 2008 [id number] 10 Sanofi Pasteur (PMC) complet ed polioviru s vaccine, inactivat ed DoD influenza virus vaccine, split virus (incl. purified surface antigen)-reti red CODE 1 2008 [id number] 15 Sanofi Pasteur (PMC) complet ed influenza virus vaccine, split virus (incl. purified surface antigen)- retired CODE DoD meningococcal polysaccharid e (groups A, C, Y and W-135) diphtheria toxoid conjugate vaccine (MCV4P) 1 2008 [id number] 114 Sanofi Pasteur (PMC) complet ed meningoco ccal polysacch aride (groups A, C, Y and W-135) diphtheri a toxoid conjugate vaccine (MCV4P) DoD tetanus toxoid, reduced diphtheria toxoid, and acellular pertu is vaccine, adsorbed 1 2008 [id number] 115 [employer] (SKB) complet ed tetanus toxoid, reduced diphtheri a toxoid, and acellular pertussis vaccine, adsorbed DoD Results Combined list of recent chemistry, hematology and other laboratory results from Department of Defense and Veterans Affairs, ranging from 15 months to all on record, depending upon the facility. Order Name Results Value Reference Range Date Interpretation Specimen Comments Source Chemistry Albumin 4.70 g/dL 3.50 - 5.20 12/28 N 5A-[address] [place] [address] Chemistry Alk Phos 72 U/L 40 - 150 12/28 N 5A-[address] [place] [address] Chemistry ALT 33 U/L 5 - 55 12/28 N 5A-[address] [place] [address] Chemistry AST 26 U/L 5 - 34 12/28 N -[address] [place] [address] Chemistry Bilirubin Direct 0.2 mg/dL 0.1 - 0.5 12/28 N - [address] [place] [address] Chemistry Bilirubin Total 0.7 mg/dL 0.2 - 1.2 12/28 N - [address] [place] [address] Chemistry Protein Total 8.6 g/dL 6.4 - 8.3 12/28 H - [address] [place] [address] Chemistry Ur Microalbumi n 5 mg/L 12/28 N Interpretiv e Data: To minimize intra-indiv idual variation, analysis of three random urine samples collected over the course of a week has also been recommended . -[address] [place] [address] Chemistry Ur Microalb/Ur Creat Ratio 4 mg/gCr 12/28 N 5A-[address] [place] [address] Chemistry Ur Creat 125 mg/dL 12/285A-[address] [place] [address] Hematolog y Neutro Absolute 2.5 x10^3/mc L 2.0 - 7.0103 12/28 N 5A-[address] [place] [address] Hematolog y Monocyte % Auto 6 % 1 - 12 12/28 N 0055A-[address] [place] [address] Hematolog y Neutrophil % Auto 54.9 % 46.0 - 77.0 12/28 N 0055A-[address] [place] [address] Hematolog y Eosinophil % Auto 1 % 0 - 5 12/28 N 5A-[address] [place] [address] Hematolog y Eos Absolute 0.0 x10^3/mc L 0.0 - 0.7103 12/28 N -[address] [place] [address] Hematolog y Lymph Absolute 1.7 x10^3/mc L 1.2 - 4.0103 12/28 [facility] Hematolog [facility] Lymphocyte % Auto 37.3 % 20.0 - 40.0 12/28 [facility] Hematolog y [place] Absolute 0.3 x10^3/mc L 0.2 - 0.8103 12/28 [facility] Hematolog y Basophil % Auto 0.4 % 0.0 - 2.5 12/28 N [facility] Hematolog y Baso Absolute 0.0 x10^3/mc L 0.0 - 0.1103 12/[address] [place] [address] Chemistry HDL Cholesterol 59 mg/dL 40 - 59 12/28 N Interpretiv e Data: HDL (HIGH DENSITY LIPOPROTEIN ): ADULTS: Low: < 40 mg/dL High: >/= 60 mg/dL AGES 0 -19: Low: < 40 mg/dL Borderline Low: 40 - 45 mg/dL Acceptable: > 45 mg/dL [address] [place] [address] Chemistry Cholesterol Total 217 mg/dL 12/28 H Interpretiv e Data: According to the [employer] : AGES 0-19: Desirable: < 170 mg/dL Borderline High: 170-199 mg/dL High Blood Cholesterol : >/= 200 mg/dL ADULTS: Desirable < 200 mg/dL Borderline High: 200-239 mg/dL High Blood Cholesterol : >/= 240 mg/dL [address] [place] [address] Chemistry LDL 130 mg/dL 100 - 130 12/28 N Interpretiv e Data: AGES 0-19: Desirable: < 110 mg/dL Borderline High: 110-129 mg/dL High: >/= 130 mg/dL ADULTS: Desirable: <100 mg/dL Near/above optimal: 100-130 mg/dL Borderline High: 131-159 mg/dL High: 160-189 mg/dL Very High: 1 90 mg/dL [address] [place] [address] Chemistry Chol/HDL 4 mg/dL 12/[address] [place] [address] Chemistry LDL/HDL 2 12/[address] [place] [address] Chemistry Triglycerid es 149 mg/dL 7 - 149 12/28 N Interpretiv e Data: AGES 0-9: Desirable: < 75 mg/dL Borderline High: 75-99 mg/dL High: >/= 100 mg/dL AGES 10-19: Desirable: < 90 mg/dL Borderline High: 90-129 mg/dL High: >/= 130 mg/dL ADULTS: Desirable: < 150 mg/dL Borderline High: 150-199 mg/dL High: >/= 240 mg/dL Very High: >/= 500 mg/dL [address] [place] [address] Chemistry eAvg Glucose 103 mg/dL 12/[address] [place] [address] Chemistry Hemoglobin A1c 5.2 % 4.0 - [...] the patient and ordering Hemoglobin Electrophor esis. [address] [place] [address] Chemistry Vitamin D 25 OH 17.3 ng/mL [...] n, and other findings. Testing performed by [facility]. 5600A-U SAFSAM EPILAB Urinalysi s UA Nitrite Negative (12/29/23 9:05 AM) 12/28 N 0055A-[address] [place] [address] Urinalysi s UA pH 7.0 *NA* (12/29/23 9:05 AM) 5 - 8 12/28 0055A-[address] [place] [address] Urinalysi s UA Leuk Esterase Negative (12/29/23 9:05 AM) 12/28 N 0055A-[address] [place] [address] Urinalysi s UA Protein Negative mg/dL 12/28 N 0055A-[address] [place] [address] Urinalysi s UA RBC TNP 12/28 0055A-[address] [place] [address] Urinalysi s UA WBC TNP 12/28 0055A-[address] [place] [address] Urinalysi s UA Spec [place] 1.015 1.001 - 1.035 12/28 N 0055A-[address] [place] [address] Urinalysi s UA Urobilinoge n 0.2 E.U./dL 0.2 - 1.0.. 12/28 N 0055A-[address] [place] [address] Urinalysi s UA Bili Negative (12/29/23 9:05 AM) 12/28 N 0055A-[address] [place] [address] Urinalysi s UA Clarity Clear *NA* (12/29/23 9:05 AM) 12/28 0055A-[address] [place] [address] Urinalysi s UA Color Yellow *NA* (12/29/23 9:05 AM) 12/28 0055A-[address] [place] [address] Urinalysi s UA Blood Negative (12/29/23 9:05 AM) 12/28 N 0055A-[address] [place] [address] Urinalysi s UA Glucose Negative mg/dL 12/28 N 0055A-[address] [place] [address] Urinalysi s UA Ketones Negative mg/dL 12/28 N 0055A-[address] [place] [address] Hematolog y MCHC 34.7 g/dL 33.0 - 36.5 12/28 N 0055A-[address] [place] [address] [facility] MCV 89 fL 80 - 97 12/28 N 0055A-[address] [place] [address]- [facility] RBC 5.0 x10^6/mc L 4.0 - 5.6106 12/28 N 0055A-[address] [place] [address]- [facility] RDW 12.0 % 11.0 - 14.9 12/28 N 0055A-[address] [place] [address]- [facility] MPV 9.8 fL 7.4 - 10.4 12/28 N 0055A-[address] [place] [address]- [facility] Platelets 258.0 x10^3/mc L 150.0 - 450.0103 12/28 N 0055A-[address] [place] [address]- [facility] Hematocrit 45 % 40 - 49 12/28 N 0055A-[address] [place] [address] Hematolog y Differentia l? Auto (12/29/23 9:05 AM) 12/28 N 0055A-[address] [place] [address] [facility] MCH 31 pg 28 - 33 12/28 N 0055A-[address] [place] [address] Hematolog y Hemoglobin 15.6 g/dL 13.0 - 16.3 12/28 N 0055A-[address] [place] [address] [facility] WBC 4.6 x10^3/mc L 4.0 - 11.0103 12/28 N 0055A-[address] [place] [address] Chemistry BUN/Creat Ratio 19 mg/dL 12 - 20 12/28 N 0055A-[address] [place] [address] Chemistry Calcium 10.3 mg/dL 8.4 - 10.2 12/28 H 0055A-[address] [place] [address] Chemistry Chloride 102 mmol/L 98 - 107 12/28 N 0055A-[address] [place] [address] Chemistry CO2 26 mmol/L 22 - 29 12/28 N 0055A-[address] [place] [address] Chemistry Creatinine Level 0.80 mg/dL 0.72 - 1.25 12/28 N 0055A-[address] [place] [address] Chemistry Glucose Lvl 95 mg/dL 74 - 99 12/28 N 0055A-[address] [place] [address] Chemistry Potassium Lvl 4.0 mmol/L 3.5 - 5.1 12/28 N -[address] [place] [address] Chemistry AGAP 10.00 0.00 - 15.00 12/28 N - [address] [place] [address] Chemistry Albumin 4.70 g/dL 3.50 - 5.20 12/28 N -[address] [place] [address] Chemistry Sodium 138 mmol/L 136 - 145 12/28 N -[address] [place] [address] Chemistry Alk Phos 72 U/L 40 - 150 12/[address] [place] [address] Chemistry Protein Total 8.6 g/dL 6.4 - 8.3 12/[address] [place] [address] Chemistry ALT 33 U/L 5 - 55 12/[address] [place] [address] Chemistry AST 26 U/L 5 - 34 12/[address] [place] [address] Chemistry Bilirubin Total 0.7 mg/dL 0.2 - 1.2 12/[address] [place] [address] Chemistry BUN 15 mg/dL 8 - 26 12/[address] [place] [address] Chemistry eGFR CKD EPI 120 mL/min/1 .73_m2 [...] Severe decrease <15 Kidney failure 0055A-3 [facility] [place] Immunolog y/Serolog y Thyroid Peroxidase Ab <15 [...] Prevention' s HIV diagnostic algorithm. Refer to [facility] Lab Guide for additional information : https://[employer]x. [facility]/ kj/kx5/EPIL ab/Pages/la b_guide.asp x Testing performed by Electrochem iluminescen ce. 5600A-U [facility] Miscellan eous Sendouts A Titer LC Less than 256. 10/27 005-3 [facility] [place] Miscellan eous Sendouts Ab Screen LC Negative 10/27-3 [facility] [place] Miscellan eous Sendouts Blood Grouping LC O 10/27 Result Comment: Note: In children beyond the age of 6 months and normal adults, isohemagglu tinins will be present which correspond to the absence of A or B antigens on red blood cells. Blood Group: Expected Isohemagglu tinins: O anti-A, anti-B A anti-B B anti-A AB none -3 [facility] [place] Miscellan eous Sendouts B Titer LC Less than [...] months is considered abnormal. Performed At: [address] [facility] [address] [place], [place] [id number] Ronny Santana MD Ph:[phone] 44 0055A-[address] [place] [address] Infectiou s Disease HIV-1/O/2.E PI NON-REAC TIVE [...] Prevention' s HIV diagnostic algorithm. Refer to [facility] Lab Guide for additional information : [email or web address] .[facility]/k j/kx5/EPILa b/Pages/lab _guide.aspx Testing performed by Bia glynn. Performed by: Epidemiolog y Laboratory Service USASwypeAM/PHE Bldg [address] [place] [address], [place] [address] 0117A-A F-ASU-5 [facility] Miscellan eous Sendouts Repository Sample.EPI RECEIVED 11/23 Result Comment: INTERPRETAT ION(S): Performed by: Epidemiolog y Laboratory Service SembraireAM/PHE Bldg [address] [place] [address], [place] [address] 0117A-A F-ASU-5 [facility]th [facility] Vital Signs Combined list of inpatient and outpatient Vital Signs from Department of Defense and Veterans Affairs, ranging from 12 months to all on record, depending upon the facility. Vital Sign Value Date Comments Source Systolic Blood Pressure 139 mm[Hg] 11/26/2021 20:28:00 2624V-QY-UCS-[facility] Diastolic Blood Pressure 92 mm[Hg] 11/26/2021 20:28:00 9967M-IP-QSE-[facility] Mean Arterial Pressure, Cuff (Calc) 108 mm[Hg] 11/26/2021 20:28:00 9676X-UJ-FZW -[facility] Mean Arterial Pressure, Cuff (Calc) 96 mm[Hg] 03/04/2025 16:11:00 0055C-[facility] Peripheral Pulse Rate 92 bpm 03/04/2025 16:11:00 0055C-[facility] Systolic Blood Pressure 128 mm[Hg] 03/04/2025 16:11:00 0055C-[facility] Diastolic Blood Pressure 80 mm[Hg] 03/04/2025 16:11:00 0055C-[facility] Systolic Blood Pressure 132 mm[Hg] 12/29/2023 13:45:00 0055C-[facility] Diastolic Blood Pressure 84 mm[Hg] 12/29/2023 13:45:00 0055C-[facility] Mean Arterial Pressure, Cuff (Calc) 100 mm[Hg] 12/29/2023 13:45:00 0055C-[facility] Blood Pressure Manual Automatic 12/29/2023 13:45:00 0055C-[facility] BP Site Right arm 12/29/2023 13:45:00 0055C -[facility] Systolic Blood Pressure 143 mm[Hg] 12/16/2024 12:55:00 0055C-[facility] Diastolic Blood Pressure 96 mm[Hg] 12/16/2024 12:55:00 0055C[facility] Peripheral Pulse Rate 107 bpm 12/16/2024 12:55:00 0055C[facility] Mean Arterial Pressure, Cuff (Calc) 112 mm[Hg] 12/16/2024 12:55:00 0055C-[facility] Respiratory Rate 16 br/min 12/16/2024 12:55:00 0055C[facility] Temperature Oral 36.9 Tracie 12/16/2024 12:55:00 0055C[facility] Systolic Blood Pressure 133 mm[Hg] 11/06/2023 17:21:00 0055C-[facility] Diastolic Blood Pressure 96 mm[Hg] 11/06/2023 17:21:00 0055C-[facility] Respiratory Rate 14 br/min 11/06/2023 17:21:00 0055C[facility] Temperature Oral 36.9 Tracie 11/06/2023 17:21:00 0055C-[facility] Mean Arterial Pressure, Cuff (Calc) 108 mm[Hg] 11/06/2023 17:21:00 0055C-[facility] Peripheral Pulse Rate 88 bpm 11/06/2023 17:21:00 0055C[facility] Temperature Oral 36.9 Tracie 12/24/2024 15:07:00 0055C[facility] Respiratory Rate 16 br/min 12/24/2024 15:07:00 0055C[facility] Peripheral Pulse Rate 73 bpm 12/24/2024 15:07:00 0055C-[facility] BP Site Left arm 12/24/2024 15:07:00 0055C -[facility] Blood Pressure Manual Automatic 12/24/2024 15:07:00 0055C-[facility] Mean Arterial Pressure, Cuff (Calc) 107 mm[Hg] 12/24/2024 15:07:00 0055C[facility] Systolic Blood Pressure 144 mm[Hg] 12/24/2024 15:07:00 0055C[facility] Diastolic Blood Pressure 89 mm[Hg] 12/24/2024 15:07:00 0055C[facility] Respiratory Rate 16 br/min 02/17/2025 18:18:00 0055C-[facility] Blood Pressure Manual Automatic 02/17/2025 18:18:00 0055C-[facility] Systolic Blood Pressure 110 mm[Hg] 02/17/2025 18:18:00 0055C[facility] Diastolic Blood Pressure 78 mm[Hg] 02/17/2025 18:18:00 0055C[facility] Temperature Oral 36.8 Tracie 02/17/2025 18:18:00 0055C-[facility] Peripheral Pulse Rate 98 bpm 02/17/2025 18:18:00 0055C[facility] BP Site Left arm 02/17/2025 18:18:00 0055C -[facility] Mean Arterial Pressure, Cuff (Calc) 89 mm[Hg] 02/17/2025 18:18:00 0055C[facility] Respiratory Rate 16 br/min 12/29/2023 13:44:00 0055C[facility] Peripheral Pulse Rate 95 bpm 12/29/2023 13:44:00 0055C-[facility] Mean Arterial Pressure, Cuff (Calc) 99 mm[Hg] 12/29/2023 13:44:00 0055C[facility] Systolic [...] ADM Date DC Date Status Disposition Source [facility]) OUTPATIENT [id number] PHE JAIME MADSEN 03/27 Released w/o Limitations [facility]) [facility]) OUTPATIENT [id number] throat JAIME MADSEN 06/23 Released w/o Limitations [employer]([facility]) [employer]([facility]) OUTPATIENT [id number] throat/ chills JAIME MADSEN 06/24 Sick at Home/Quarter s [employer]([facility]) [employer](Fam rossy Practice BHOP/Coum taylor) OUTPATIENT [id number] annual pha/fta c/ttp RIKA LOVELL 11/25 Released w/o Limitations [facility](F amily Practic e BHOP/Co umadin) [facility](Fam rossy Practice Red Team) TELE CONSULT [id number] lab results DAILY, CATRACHITO Stuart 11/27 Other Not Elsewhere Classified [facility] [employer] [facility](F amily Practic e Red Team) [facility] [employer] [facility](Fam rossy Practice Red Team) TELE CONSULT [id number] Lab results MEGAN PICKERING 12/02 [employer](F amily Practic e Red Team) [employer](Fam rossy Practice Red Team) OUTPATIENT [id number] pink eye ZPHAM, [facility] 03/29 Sick at Home/Quarter s [employer](F amily Practic e Red Team) [employer](Fam rossy Practice Blue Team) TELE CONSULT [id number] cac LAVELLE Espitia 05/13 Referred for Appointment [facility](F amily Practic e Blue Team) [employer] [facility]am rossy Practice Blue Team) OUTPATIENT [id number] cough, s/t ZDAY, DUSTIN 06/08 Released w/o Limitations [employer](F amily Practic e Blue Team) [employer](Fam rossy Practice BHOP/Coum taylor) TELE CONSULT [id number] cac pha KELECHI CROCKETT 07/13 Referred for Appointment [facility](F amily Practic e BHOP/Co umadin) [employer](Fam rossy Practice BHOP/Coum taylor) OUTPATIENT [id number] PHA/HRR KELECHI CROCKETT 07/26 Released w/o Limitations [employer](F amily Practic e BHOP/Co umadin) [facility] OUTPATIENT [id number] 11/25 Released w/o Limitations [facility] [employer](Men [facility]) OUTPATIENT [id number] Reinteg ration Suzy trotter SABINA GENEVIEVELinda Stuart 03/03 Released w/o Limitations [facility] [facility]) [employer] [facility] [employer](Opt ometry Clinic) TELE CONSULT [id number] Routine Eye Exam. No appoint ments availab leSimone GLENNJOETANA, CASE 05/04 [employer] [facility](O ptometr y Clinic) [employer] [facility] [employer](Opt ometry Clinic) OUTPATIENT [id number] eye exam YEN AZAR [facility] 09/08 Released w/o Limitations [employer](O ptometr y Clinic) [employer](Herb eficiarie s_Non-AD Only) TELE CONSULT [id number] CAC/GS- LACERAT ION ON ARM THAT IS OPEN SHANE ECKERT Y 10/17 [employer](B enefici aries_N on-AD Only) [employer](Herb eficiarie s_Non-AD Only) OUTPATIENT [id number] thumb injury LAUREN, CASE 11/01 Released w/o Limitations [employer](B enefici aries_N on-AD Only) [facility](Med ical Standards Managemen t) OUTPATIENT [id number] HRR/KELLY MCCRAY 11/16 Released w/o Limitations [employer](M edical Standar ds Managem ent) [employer](Herb eficiarie s_Non-AD Only) OUTPATIENT [id number] bilater al knee pain JENISE [facility] 12/05 Released with Work/Duty Limitations [employer](B enefici aries_N on-AD Only) [facility](Phy sical Therapy Clinic) OUTPATIENT [id number] bilater al knee pain STACI PETERS S 12/26 Released with Work/Duty Limitations [employer](P hysical Therapy Clinic) [employer]([facility] ins [facility]) OUTPATIENT [id number] Notes Entered by: ANTHONY QUINONES 03 Apr 2012 1426 ------- ------- ------- ------- -- POST DEPLOYM ENT RESILIE NCY REASSZAIN FANG 04/03 Released w/o Limitations [employer]([facility]) [employer]([facility]f [facility] [employer]) TELE CONSULT [id number] Notes Entered by: MARK MARTINEZ 05 Apr 2012 1303 ------- ------- ------- ------- -- OUTPATI ENT PHYSICI AN CONSULT ATION STELLA RODRIGUEZ 04/05 [employer]([facility] [employer]) [employer]([facility] Conserv[facility] ion [facility]) OUTPATIENT [id number] ANNUAL PEG 596J HUI CERRATO 05/29 Released w/o Limitations [facility]( earing Conserv ation Clinic) [employer]([facility] Promotion s) OUTPATIENT [id number] Notes Entered by: NYASIA ALONSO 13 Jun 2012 1358 ------- ------- ------- ------- -- TCC #1 NYASIA ALONSO 06/13 Released w/o Limitations [facility](H ealth Promoti ons) [facility](Opt ometry Clinic) OUTPATIENT [id number] annual eye exam CECIL XIE 07/17 Released w/o Limitations [facility](O ptometr y Clinic) [facility](Krzysztof ins [facility]) OUTPATIENT [id number] Notes Entered by: ANTHONY QUINONES 17 Jul 2012 1439 ------- ------- ------- ------- -- POST DEPLOYM ENT RESILIE NCY ZAIN ROJAS 07/17 Released w/o Limitations [facility](R [facility]) [facility](Opt ometry Clinic) OUTPATIENT [id number] Refract sunny Re-CECIL Jose 08/06 Released w/o Limitations [employer](O ptometr y Clinic) [employer](Herb dewitt s_Non-AD Only) TELE CONSULT [id number] Notes Entered by: Tami MOURA 14 Aug 2012 1504 ------- ------- ------- ------- -- After hours KADEN Scott 08/14 [employer](Vicenta acuña_N on-AD Only) [employer](Med ical Standards Managemen t) OUTPATIENT [id number] Notes Entered by: MARIA M RUBALCAVA 20 Nov 2012 0943 ------- ------- ------- ------- -- HRR/MARIA M YANES 11/20 Released w/o Limitations [employer](Sade travis Standar ds Managem ent) [employer]([facility] [employer]) OUTPATIENT [id number] nausea, stomach pain,th rowing up CHRISTINA NAVA 01/10 Sick at Home/Quarter s [employer](R [facility] [employer]) [employer]([facility]) OUTPATIENT [id number] PREDEPL OYMENT RESILIE NCY ASSESSM ENT ZAIN ELLIOTT 02/22 Released w/o Limitations [facility](R [facility]) [facility](Hea ring Conservat ion Clinic) OUTPATIENT [id number] ANNUAL PEG JaceyJ MONO OROZCO 05/21 Released w/o Limitations [employer](H earing Conserv ation Clinic) [employer]([facility] [employer]) OUTPATIENT [id number] PHA CHRISTINA PADILLA 05/31 Released w/o Limitations [facility](R [facility] [employer]) [facility](K[facility]ys[facility]f [facility]) OUTPATIENT [id number] pre deploym ent health assessm ent ANDRES KENT 06/03 Released w/o Limitations [facility]) [facility]) OUTPATIENT [id number] KASSIE ZELAYA Tami 06/11 Released w/o Limitations [facility](M ental Health Clinic) [facility](Opt ometry Clinic) OUTPATIENT [id number] routine eye exam CECIL XIE Tami 07/04 Released w/o Limitations [facility](O ptometr y Clinic) [facility] [employer]) OUTPATIENT [id number] Pre-Dep loyment clearan CHRISTINA Petersen 07/17 Released w/o Limitations [facility](R [facility] [employer]) [facility]) OUTPATIENT [id number] Notes Entered by: MARIA M RUBALCAVA 06 Aug 2013 1546 ------- ------- ------- ------- -- Pre-Dep loyment Medicat ANDRES Adames 08/06 Released w/o Limitations [facility](Fam rossy Practice BHOP/Coum taylor) TELE CONSULT [id number] Notes Entered by: JESSICA GASTELUM 24 Feb 2014 1033 ------- ------- ------- ------- -- PHA/KEYLA ORITY ITEM TENZIN HUFF 02/24 [facility](Beau Harper e BHOP/Co umadin) [facility](PHA Managemen t) OUTPATIENT [id number] Notes Entered by: JESSICA GASTELUM 05 Mar 2014 0920 ------- ------- ------- ------- -- HRR/PHA DELVIS GASTELUM 03/05 Released w/o Limitations [facility](P HERNANDEZ Managem ent) [facility](Krzysztof ins [facility]) OUTPATIENT [id number] Notes Entered by: JEY STERN 10 Mar 2014 0747 ------- ------- ------- ------- -- ANDRES HITCHCOCK M 03/10 Released w/o Limitations [employer](R obins [facility]) [employer](Tro op_AD Only) OUTPATIENT [id number] LEFT ANKLE PAIN X 1 WEEK, WORSE PAIN LEVEL 7 MICAH EISENBERG 03/26 Released w/o Limitations [employer](T roop_AD Only) [employer](Tro op_AD Only) TELE CONSULT [id number] Notes Entered by: JEY STERN 06 May 2014 0800 ------- ------- ------- ------- -- Needs appt JASON is a PRIORIT Y patient and needs to be schedul ed within 72 hours TIKI OBANDO 05/06 [employer](T roop_AD Only) [employer]([facility]a ring Conserv[facility] ion [facility]) OUTPATIENT [id number] ANNUAL PEG 596J KINJAL GARCIA 05/13 Released w/o Limitations [employer](H earing Conserv ation Clinic) [facility](Tro op_AD Only) OUTPATIENT [id number] Per Mr Stern MICAH EISENBERG 05/14 Released w/o Limitations [employer](T roop_AD Only) [facility](Opt ometry Clinic) OUTPATIENT [id number] EYE EXAM KENDRICK VALLADARES 08/20 Released w/o Limitations [employer](O ptometr y Clinic) [facility](Med ical Standards [facility] t) OUTPATIENT [id number] Notes Entered by: ABBEY JOHNSON V 25 Feb 2015 1057 ------- ------- ------- ------- -- NIDIA Harding 02/25 Released w/o Limitations [employer](Sade travis Standar ds Managem ent) [facility](In and Out Negin Leung) TELE CONSULT [id number] Notes Entered by: ISAAK KEVIN 12 Mar 2015 1345 ------- ------- ------- ------- -- Out Process ing ISAAK KEVIN 03/12 [employer](I n and Out Process ing Madhu) [facility], [place] [address](Ramon velasquez [facility] Team A) TELE CONSULT [id number] Notes Entered by: Huy CONTRERAS 22 Apr 2015 0758 ------- ------- ------- ------- -- ROUTINE PHA RR [id number] RLG SHWETA MOLINA 04/22 [facility] Militar y Treatme nt Facilit y, [place] [address](Tami castillo [facility] Team A) [place] [address]([facility]) OUTPATIENT [id number] Yeimi campa DHA 4 VETOROXANNA LI Khalif 04/22 Released w/o Limitations [facility] Militar y Treatme nt Facilit y, [place] [address]([facility]) [place] [address](In and Out Chidi Rosas) TELE CONSULT [id number] Notes Entered by: ANDERSON DURAN NMI 05 May 2015 0747 ------- ------- ------- ------- -- In-Proc PK Fulton NMI 05/05 Other Not Elsewhere Classified [facility] Militar y Treatme nt Facilit y, [place] [address](I n and Out Process Mynor lewis) [place] [address]([facility]) OUTPATIENT [id number] sore throat VIKAS GUY 07/06 Released w/o Limitations [facility] Militar y Treatme nt Facilit y, [place] [address]([facility]) [place] [address]([facility]) OUTPATIENT [id number] NGUYỄN#5 JANIS BARKLEY 05/10 Released w/o Limitations [facility] [place] [address](Chema martines [facility], [facility]) [facility] [address]([facility] _Team F) TELE CONSULT [id number] Notes Entered by: OCTAVIA CROWE 26 May 2016 0820 ------- ------- ------- ------- -- CAMO lump chest JULIA LUU C 05/26 [place] [address](L a[place]land _[facility]_Te am F) [place] [place] [address]([facility] _Team E) OUTPATIENT [id number] painful lump right side chest KATIE CRAIN 05/26 Released w/o Limitations [facility] [place] [address](L ackland _[facility]_Te am E) [place] [address]([facility] Team A) TELE CONSULT [id number] Notes Entered by: JACOB SAUER 12 Jul 2016 0622 ------- ------- ------- ------- -- Richardre Rad KATIE Richards 07/12 [facility] [place] [address](L acand [facility] Team A) [place] [address]([facility] Medicine, [facility]) OUTPATIENT [id number] [facility] STEPHANIE MAYNARD 02/15 Released w/o Limitations [facility] [place] [address](N utritio nal Medicin e, [facility]) [place] [address](Phy sical Exams, [facility]) OUTPATIENT [id number] Notes Entered by: SARAN BIRCH 27 Apr 2017 0913 ------- ------- ------- ------- -- Annual Tri-Ser WHITNEY Carpenter 04/27 Released w/o Limitations [facility] [place] [address](P hysical Exams, [facility]) [place] [address](Opt ometry Clinic, [facility]) OUTPATIENT [id number] ROUTINE EYE EXAM/WH ASC ANDREZRAE Dustin 05/02 [facility] w/o Limitations [facility] [place] [address](O ptometr y Clinic, [facility]) [place] [address](Oph thal PRK, [facility]) OUTPATIENT [id number] PRK JERARDO SINGH Tami 05/10 [facility]ased w/o Limitations [facility] [place] [address](O phthal PRK, [facility]) [place] [address](Oph thal PRK, [facility]) OUTPATIENT [id number] Repeat testing @ PRISCILLA GRIFFIN 06/26 Released w/o Limitations [facility] [place] [address](O phthal PRK, [facility]) [place] [address](Oph thal PRK, [facility]) OUTPATIENT [id number] BRIEF KENDRICK SCOTT 06/27 Released w/o Limitations [facility] [place] [address](O phthal PRK, [facility]) [place] [address](Oph thal PRK, [facility]) OUTPATIENT [id number] SURGERY KENDRICK SCOTT 06/28 Released with Work/Duty Limitations [facility] [place] [address](O phthal PRK, [facility]ASC) [place] [address](Oph thal PRK, [facility]) OUTPATIENT [id number] POD1 KENDRICK SCOTT 06/29 Released with Work/Duty Limitations [facility] [place] [address](O phthal PRK, [facility]) [place] [address](Oph thal PRK, [facility]) OUTPATIENT [id number] POD5 KARI WU 07/03 Released with Work/Duty Limitations [facility] [place] [address](O phthal PRK, [facility]) [place] [address](Oph thal PRK, [facility]) OUTPATIENT [id number] YASMEEN WU LEADER 07/26 Released with Work/Duty Limitations [facility] [place] [address](O phthal PRK, [facility]) [place] [address](BOM C,Joni) OUTPATIENT [id number] [facility] [id number] PROV INFO JONI BEARDEN YOBANY F 05/23 Released w/o Limitations [facility] [place] [address](B OMValente Morales) [place] [address]([facility] Team G) OUTPATIENT [id number] COLD SORE WH FAM HCELSEA DOBSON R 06/19 Released w/o Limitations [facility] [place] [address](Tami [facility] Team G) [place] [address]([facility] Team G) OUTPATIENT [id number] Notes Entered by: CHELSEA DOBSON 22 Jun 2018 1654 ------- ------- ------- ------- -- lab results CHELSEA DOSBON R 06/22 Released w/o Limitations [facility] [place] [address]([facility] [place] [place] [address]([facility] Team G) TELE CONSULT [id number] Notes Entered by: CASANDRA LUNA V 26 Dec 2018 1343 ------- ------- ------- ------- -- FCR/LUIGI CK JONATHAN GLYNN BEST CONTACT NUMBER [id number] TVS/EMERITA ENCISO 12/26 Referred for Appointment [facility] [place] [address](Tami [facility] Team G) [place] [address](Phy sical Exams, Joni) TELE CONSULT [id number] Notes Entered by: Linda CASTILLO 27 Dec 2018 1555 ------- ------- ------- ------- -- Special Duty samantha ce (MTI) BABAR TAO Juliet 12/27 [facility] [place] [address](P hysical Exams, Joni) [facility], [place] [address]([facility] Team G) OUTPATIENT [id number] 422 needed for MTI school MARCIO FLORES Tami 01/09 Released w/o Limitations [facility] [place] [address](Tami saezkiran [facility] Team G) [facility], [place] [address](All ergy, [facility]) OUTPATIENT [id number] Notes Entered by: Ela DOTY 20 Feb 2019 1530 ------- ------- ------- ------- -- LUCERO ACUÑA 02/20 Released w/o Limitations [facility] [place] [address](A llergy, [facility]) [facility], [place] [address](BOM C,Joni) OUTPATIENT [id number] [facility]/[id number] CALISTA ALMARAZ 06/06 Released w/o Limitations [facility] [place] [address](B [facility],Valente d) [facility], [place] [address]([facility] Team A) TELE CONSULT [id number] Notes Entered by: Vicenta SCHROEDER 24 Jun 2019 0911 ------- ------- ------- ------- -- REFERAL REQUEST CHIRO #[id number] TERRIE/HOLLY PRECIADO 06/24 [facility] [place] [address](Tami saezron [facility] Team A) [place] [place] [address]([facility], [facility]) OUTPATIENT [id number] Low back pain TERELL CHOWDARY 06/28 Released w/o Limitations [facility] [place] [address]([facility], [facility]) [place] [address]([facility]) OUTPATIENT [id number] TERELL CHOWDARY 07/25 Released w/o Limitations [facility] [place] [address]([facility], [facility]) [place] [address]([facility] Op_Med Team A,[facility]) TELE CONSULT [id number] Notes Entered by: PRAVIN ALFARO 29 Jul 2019 1244 ------- ------- ------- ------- -- RX REFILL FOR COLD SORES [phone] SNG/CAM O HEIDI ASTUDILLO 07/29 Other Not Elsewhere Classified [facility] [place] [address](L acand Op_Med Team A,[facility] ) [place] [place] [address](Phy sical Therapy [place]) OUTPATIENT [id number] Low back pain GUZMÁNBART 08/28 Released w/o Limitations [facility] [place] [address](P hysical Therapy [place]) [place] [address]([facility]) OUTPATIENT [id number] [facility] ER F/U HOLLY OQUENDO 09/20 Released w/o Limitations [facility] [place] [address](L acand Op_Med Team A,[facility] ) [place] [address]([facility], [facility]) OUTPATIENT [id number] Low back pain TERELL CHOWDARY 10/17 Released w/o Limitations [facility] [place] [address]([facility], [facility]) [place] [address]([facility], [facility]) OUTPATIENT [id number] TERELL CHOWDARY 10/25 Released w/o Limitations [facility] [place] [place] [address](C hiropra ctic Clinic, [facility]) [place] [address](Phy sical Therapy, [facility]) OUTPATIENT [id number] Low back pain DEMETRAPAYAM L 10/30 Released w/o Limitations [facility] [place] [address](P hysical Therapy , [facility]) [place] [address]([facility]) OUTPATIENT [id number] TERELL CHOWDARY 11/01 Released w/o Limitations [facility] [place] [address]([facility], [facility]) [place] [address]([facility], [facility]) OUTPATIENT [id number] TERELL CHOWDARY 11/08 Released w/o Limitations [facility] [place] [address]([facility], [facility]) [place] [address]([facility], [facility]) OUTPATIENT [id number] TERELL CHOWDARY 11/15 Released w/o Limitations [facility] [place] [address](C hiropra ctic Clinic, [facility]) [place] [address]([facility], [facility]) OUTPATIENT [id number] TERELL CHOWDARY 12/02 Released w/o Limitations [facility] [place] [address]([facility], [facility]) [place] [address]([facility] OUTPATIENT [id number] TERELL CHOWDARY 12/08 Released w/o Limitations [facility] [place] [address](C hiropra ctic [facility]) [facility], [facility]) TELE CONSULT [id number] Notes Entered by: Ela SALDANA 25 Apr 2020 1004 ------- ------- ------- ------- -- MTI lab ZAHRA ZUÑGIA 04/25 Released to Self Care [facility] [place] [address]([facility], [facility]) [facility], [place] [address]([facility]) TELE CONSULT [id number] Notes Entered by: Ela SALDANA 07 May 2020 0908 ------- ------- ------- ------- -- Labs ZAHRA ZUÑIGA 05/07 Released to Self Care [facility] [place] [address](A llergy, [facility]) [facility], [place] [address](BOJoni Uriarte) OUTPATIENT [id number] MHA FOR PHA PT# [id number] GREGORY XIE 05/19 Released w/o Limitations [facility] [place] [address](B [facility],Valente chema) [facility], [facility](Ramon velasquez Op_Med Team A,[facility]) TELE CONSULT [id number] Notes Entered by: MAIA NICHOLAS 21 May 2020 0951 ------- ------- ------- ------- -- MEDICAT ION RENEWAL // AAC/CAM O LOGAN AGARWAL 05/21 Referred for Appointment [facility] [place] [address](Tami castillo Op_Med Team A,[facility] ) [place] [address](COV ID19 Screening [facility]) TELE CONSULT [id number] Notes Entered by: Ela CHEATHAM 21 Jul 2020 0707 ------- ------- ------- ------- -- Covid test results YOBANY CASIANO 07/21 [facility] [place] [address](C OVID19 Screeni ng [facility]) [place] [address](Lac k[place] Op_Med Team A,[facility]) TELE CONSULT [id number] Notes Entered by: ALEC SOLORIO 18 Sep 2020 0908 ------- ------- ------- ------- -- Med Refill # Sade/LOGAN CHILDRESS 09/18 Referred for Appointment [facility] [place] [address](L ackland Op_Med Team A,[facility] ) [place] [address]([place] Op_Med Team A,[facility]) TELE CONSULT [id number] Notes Entered by: TIBURCIO VALLE 23 Sep 2020 1212 ------- ------- ------- ------- -- MED REFILL # [id number] [facility]/LOGAN BARNEY 09/23 Referred for Appointment [facility] [place] [address](L ackland Op_Med Team A,[facility] ) [place] [address]([place]ac [place] Op_Med Team A,[facility]) OUTPATIENT [id number] concern s on flare ups for lips, cold sore KOBECHICO COVINGTON 10/14 Released w/o Limitations [facility] [place] [address](L ackland Op_Med Team A,[facility] ) [place] [address](BOM C,Joni) OUTPATIENT [id number] MHA [phone] JEANMARIE HILLIARD 06/24 Released w/o Limitations [facility] [place] [address](B [facility],Valente d) [place] [address](Ramon kland Op_Med Team A,[facility]) OUTPATIENT [id number] Hc; Med Renewal ; [phone] ZZZBM_VIES ON, ZZZBM_ADRI ENNE M 09/27 Released w/o Limitations [facility] [place] [address](L ackland Op_Med Team A,ASC ) [address] [place] [address] Group Blake DOVER [facility])(War rior Op Med Cln Tm A Ad) TELE CONSULT [id number] Notes Entered by: LIANG SINGH 02 Feb 2023 1526 ------- ------- ------- ------- -- High blood pressur griselda Kaleb Pretty - - tsg DIAN CANAS 02/02 Referred for Appointment [address] [place] [address] Group Blake DOVER [facility]W arrior Op Med Cln Tm A Ad) [address] [place] [address] Blake Vicenta [facility])(War rior Op Med Cln Tm A Ad) OUTPATIENT [id number] Elevate d BP TOBIAS VÁSQUEZ 02/03 Released w/o Limitations [address] [place] [address] Blake DOVER [facility])(W arrior Op Med Cln Tm A Ad) [address] [place] [address] Blake [facility])(War rior Op Med Cln Tm A Ad) TELE CONSULT [id number] Notes Entered by: SEBLE RODRIGUEZ 13 Feb 2023 0912 ------- ------- ------- ------- -- Lab results EKNDRICK CABRERA 02/13 Referred for Appointment [address] [place] [address] Group Blake D[facility]W arrior Op Med Cln Tm A Ad) [address] [place] [address] Blake Vicenta [facility])(War rior Op Med Cln Tm A Ad) OUTPATIENT [id number] F2F- FU -[phone] TOMASZ RAHMAN 03/07 Released w/o Limitations [employer] Blake DOVER ([facility])(W arrior Op Med Cln Tm A Ad) 0055C-375 th MEDGRP-Sc deng Between Visit [id number] 04/15 Discharge Disposition: Home or Self Care 5C-3 griselda Lozano 7379C-L[facility] [id number] [facility] er for issue of other medical certifi ramirez SOLIZ 08/14 Discharge Disposition: Home or Self Care 7379C-L [facility] 0055C-375 th MEDGRP-Sc deng Between Visit [id number] 08/26 Discharge Disposition: Home or Self Care 0055C-3 [address] MED[facility] Blake 0055C-375 th [employer]-Sc deng Between Visit [id number] 08/27 Discharge Disposition: Home or Self Care 5C-3 [facility] MEDGRP Blake 0055C-375 th MEDGRP-Sc deng Between Visit [id number] 08/28 Discharge Disposition: Home or Self Care 5C-3 griselda Lozano Procedures Combined list of: 1) Procedures from Department of Veterans Affairs facilities going back up to thelast 18 months, not all VA non-surgical procedures are included; 2) All procedures from the Department of Defense facilities. Procedure Procedure Type Code Date Perfomer Comments Sour e Physical Therapy Service Evaluation 2022 griselda Lozano Internet Med Svc Qual Nonps Healthcare Prof Up To 7 Days Estab Patient 2022Alex Lozano Fitting of spectacles, except for aphakia; monofocal Fitting of spectacles, except for aphakia; monofocal 47085 2022 Outside Source Comment: FOC and ballistic griselda Lozano Dr.-Supervised [employer] Educational Services 2022Zari griselda Lozano Scanning computerized ophthalmic diagnostic imaging, anterior segment, with interpretation and report, unilateral or bilateral Scanning computerized ophthalmic diagnostic imaging, anterior segment, with interpretation and report, unilateral or bilateral [address] [place] [address] Blake Psychometric Neuropsych Testing Battery Admin By Computer [address] [place] [address] Psychiatric evaluation of hospital records, other psychiatric reports, psychometric and/or projective tests, and other accumulated data for medical diagnostic purposes Psychiatric evaluation of hospital records, other psychiatric reports, psychometric and/or projective tests, and other accumulated data for medical diagnostic purposes [address] [place] [address] Psychiatric diagnostic evaluation Psychiatric diagnostic evaluation [address] [place] [address] Health And Behav Intervention, Each Additional 15 Min Grp (2 Or More) [address] [place] [address] Blake Determination of refractive state Determination of refractive state [address] [place] [address] Brief emotional/behavioral a e ment (eg, depre ion inventory, attention-deficit/hy peractivity disorder [ADHD] scale), with scoring and documentation, per standardized instrument Brief emotional/behavior al assessment (eg, depression inventory, attention-deficit/ hyperactivity disorder [ADHD] scale), with scoring and documentation, per standardized instrument [address] [place] [address] Blake Physical Therapy Education Orthotics Training 2022 Outside Source Comment: Time In 1312/Time Out 1322 x 10 min: Pt issued OTS Spenco semi-rigid insoles for wear with all footwear. Instructed pt in proper wear, adjustments prn. [address] [place] [address] Blake Ear mold/insert, disposable, any type [address] [place] [address] Brief communication technology-based service [address] [place] [address] Blake Physician Supervised [employer] Services [address] [place] [address] Osteopathic manipulative treatment (OMT); one to two body regions involved Osteopathic manipulative treatment (OMT); one to two body regions involved 00595 2022 Outside Source Comment: HVLAT to lumbar region to improve facet glide d/t facet impingement. Soft tissue cupping to reduce muscular tension [facility] Orthopedic shoe addition, insole, rubber [address] [place] [address] Medical nutrition therapy; group (2 or more individual(s)), each 30 minutes Medical nutrition therapy; group (2 or more individual(s)), each 30 minutes [address] [place] [address] External ocular photography with interpretation and report for documentation of medical progre (eg, close-up photography, slit lamp photography, goniophotography, stereo-photography) External ocular photography with interpretation and report for documentation of medical progress (eg, close-up photography, slit lamp photography, goniophotography, stereo-photography ) [address] [place] [address] COMPUTERIZED CORNEAL TOPOGRAPHY UNI/BI COMPUTERIZED CORNEAL TOPOGRAPHY UNI/BI [address] [place] [address] Brief communication technology-based service [address] [place] [address] Application of a modality to one or more areas; hot or cold packs Application of a modality to one or more areas; hot or cold packs [address] [place] [address] Application of a modality to one or more areas; electrical stimulation (unattended) Application of a modality to one or more areas; electrical stimulation (unattended) [address] [place] [address] Waiver services; not otherwise specified (NOS) [address] [place] [address] Therapeutic procedure, one or more areas, each 15 minutes; therapeutic exercises to develop strength and endurance, range of motion and flexibility Therapeutic procedure, one or more areas, each 15 minutes; therapeutic exercises to develop strength and endurance, range of motion and flexibility [address] [place] [address] Pure tone audiometry (threshold); air only Pure tone audiometry (threshold); air only 94183 2022 Outside Source Comment: NO STS [address] [place] [address] Patient education, not otherwise cla ified, non-physician provider, individual, per se ion [address] [place] [address] No Procedure information available for data migration. 2022 [facility] NASRA Lozano Internet Med Svc Qual Nonphys Healthcare Prof Up To 7 Days Estab Patient 2022 [facility] NASRA Lozano Exercise equipment 2022 Outside Source Comment: Stretch strap [facility] NASRA Lozano Counseling and discu ion regarding advance directives or end of life care planning and decisions, with patient and/or surrogate (list separately in addition to code for appropriate evaluation and management service) 2022 griselda Lozano Counseling and discu ion regarding advance directives or end of life care planning and decisions, with patient and/or surrogate (list separately in add ition to code for appropriate evaluation and management service) 2022 [facility] NASRA Lozano Chiropractic manipulative treatment (CMT); spinal, three to four regions Chiropractic manipulative treatment (CMT); spinal, three to four regions 59462 2022 [facility] MIGUEL Blake Chiropractic manipulative treatment (CMT); spinal, one to two regions Chiropractic manipulative treatment (CMT); spinal, one to two regions 36390 2022 [facility] NASRA Lozano Brief communication technology-based service 2022 [facility] NASRA Lozano Brief communication technology-based service 2022 [facility] MIGUEL Blake Brief communication technology-based service 2022 [facility] NASRA Lozano Psychometric Neuropsych Testing Battery Admin By Computer 2022 [facility] NASRA Lozano Laser in situ keratomileusis (LASIK) 2022 [facility] NASRA Lozano Counseling and discu ion regarding advance directives or end of life care planning and decisions, with patient and/or surrogate (list separatel y in addition to code for appropriate evaluation and management service) 2022 [facility] NASRA Lozano PHYS/OTH QUALIFIED HEALTH FREIGHT BRAKE OPERATOR QUALIFIED,EDUCATION, TRAIN,LICENSURE/REGU LATION (WHEN APPLICABLE) EDUC SER [...] ADMINISTERED BY A COMPUTER, WITH QUALIFIED HEALTH FREIGHT BRAKE OPERATOR INTERPRETATION AND REPORT 2012 DoD PATIENT EDUCATION, NOT OTHERWISE CLASSIFIED, NON-PHYSICIAN PROVIDER, INDIVIDUAL, PER SESSION 2012 DoD FITTING OF SPECTACLES, EXCEPT FOR APHAKIA; MONOFOCAL 2011 DoD FITTING OF SPECTACLES, EXCEPT FOR APHAKIA; MONOFOCAL 2011 DoD EDUCATION &TRAINING, PATIENT SELF-MGT QUALIFIED, NONPHYSICIAN HEALTH FREIGHT BRAKE OPERATOR USING STANDARDIZED CURRICULUM, [id number]-[id number] W THE PATIENT (COULD INCL CAREGIVER/FAMILY) EA 30 MIN; 5-8 PATIENTS 2011 DoD PATIENT EDUCATION, NOT OTHERWISE CLASSIFIED, NON-PHYSICIAN PROVIDER, INDIVIDUAL, PER SESSION 2011 [facility] ORTHOPEDIC SHOE ADDITION, INSOLE, RUBBER 2011 DoD DETERMINATION OF REFRACTIVE STATE 2010 DoD HEALTH AND BEHAVIOR INTERVENTION, EACH 15 MINUTES, [id number]; GROUP (2 OR MORE PATIENTS) 2010 DoD SCREENING TEST OF VISUAL ACUITY, QUANTITATIVE, BILATERAL 2009 DoD WAIVER SERVICES; NOT OTHERWISE SPECIFIED (NOS) 2020 DoD BRIEF COMM TECH-BASE SERV,E.G. VIRT CHK-IN,BY PHYS/OTH QUAL HCP,RPT E&M SERV,PROV TO EST PT,NOT ORIG FRM REL E/M SERV PROV W/IN PREV 7DAY NOR LEAD TO E/M SRV/PX W/IN NEXT 24HR/SOON FRANCES; 5-10 MIN DISC 2020 DoD HOSPITAL OUTPATIENT CLINIC VISIT SPECIMEN COLLECTION FOR [...] SCORING AND DOCUMENTATION, PER STANDARDIZED INSTRUMENT 2018 [facility] TETANUS AND DIPHTHERIA TOXOIDS ADSORBED (TD), PRESERVATIVE FREE, WHEN ADMINISTERED TO INDIVIDUALS 7 YEARS OR OLDER, FOR INTRAMUSCULAR USE 2018 [facility] COUNSELING AND DISCUSSION REGARDING ADVANCE DIRECTIVES OR END OF LIFE CARE PLANNING AND DECISIONS, WITH PATIENT AND/OR SURROGATE 2018 [facility] BRIEF EMOTIONAL/BEHAVIORAL ASSESSMENT (EG, DEPRESSION INVENTORY, ATTENTION-DEFICIT/HY PERACTIVITY DISORDER [ADHD] SCALE), WITH SCORING AND DOCUMENTATION, PER STANDARDIZED INSTRUMENT 2018 [facility] ONLINE ASSESS &MANAG SERV PROVIDE,A QUAL NONPHYS HCP TO AN ESTABLISHED PAT/GUARDIAN,NOT ORIGINAT FR RELAT ASSESS &MANAG SERV PROVIDE W/IN THE PREV 7 DAYS,USE THE [employer] NETWORK 2017 [facility] ONLINE ASSESS &MANAG SERV PROVIDE,A QUAL NONPHYS HCP TO AN ESTABLISHED PAT/GUARDIAN,NOT ORIGINAT FRM RELAT ASSESS &MANAG SERV PROVIDE W/IN THE PREV 7 DAYS,USE THE [employer] NETWORK 2017 [facility] POSTOPERATIVE FOLLOW-UP VISIT, NORMALLY INCLUDED IN THE [...] 24 HR/SOON APT;5-10 MIN MED DIS 2015 [facility] SCREENING TEST OF VISUAL ACUITY, QUANTITATIVE, BILATERAL 2008 [facility] Health And Behav Intervention, Each Additional 15 Min Grp (2 Or More) Health And Behav Intervention, Each Additional 15 Min Grp (2 Or More) 39163 2010 NICOLLE OLGUIN [facility] Screening Test Of Visual Acuity, Quantitative, Bilateral Screening Test Of Visual Acuity, Quantitative, Bilateral 05699 2009 RIKA LOVELL [facility] Physician Supervised Group Educational Services 2008 JAIME MADSEN [facility] Preventive Medicine Administration Of Health Risk Questionnaire Patient-Focused Preventive Medicine Administration Of Health Risk Questionnaire Patient-Focused 56886 2018 CALISTA ALMARAZ [facility] Internet Med [facility] Prof Up To 7 Days Estab Patient Internet Med [facility] Prof Up To 7 Days Estab Patient 28618 2018 CALISTA ALMARAZ [facility] Immunization Administration By Injection, One Vaccine Immunization Administration By Injection, One Vaccine 04628 2018 JAH DOTY [facility] Td Vaccine Preservative Free, Adsorbed Td Vaccine Preservative Free, Adsorbed 35799 2018 JAH DOTY Td (adult), adsorbed; Series #: 1; .5 mL; IM; Unknown; [facility]: [facility] [employer]; Lot: [id number]; VIS given (Len: 01/17/2017). [facility] Counseling and discu ion regarding advance directives or end of life care planning and decisions, with patient and/or surrogate (list separately in addition to code for appropriate evaluation and management service) Counseling and discussion regarding advance directives or end of life care planning and decisions, with patient and/or surrogate (list separately in addition to code for appropriate evaluation and management service) [id number] 2018 MARCIO FLORES [facility] Psychometric Emotional / Behavioral A e ment Psychometric Emotional / Behavioral Assessment 02960 2018 PHILLIP MUHAMMAD [facility] Performance Of Mental Status Exam - Cerebral Function And Aphasia Performance Of Mental Status Exam - Cerebral Function And Aphasia 86927 2018 PHILLIP MUHAMMAD [facility] Psychiatric Diagnostic Evaluation Initial Psychiatric Diagnostic Evaluation Initial [id number] 2018 PHILLIP MUHAMMAD [facility] Internet Med Svc Qual Nonphys Healthcare Prof Up To 7 Days Estab Patient Internet Med Svc Qual Nonphys Healthcare Prof Up To 7 Days Estab Patient [id number] 2017 BRONSONCHELSEA Nupur Internet Med Svc Qual Nonphys Healthcare Prof Up To 7 Days Estab Patient Internet Med Svc Qual Nonphys Healthcare Prof Up To 7 Days Estab Patient [id number] 2017 YOBANY BEARDEN Preventive Medicine Administration Of Health Risk Questionnaire Patient-Focused Preventive Medicine Administration Of Health Risk Questionnaire Patient-Focused [id number] 2017 YOBANY BEARDEN Postoperative Visit, Without Charge Postoperative Visit, Without Charge 96156 2016 YASMEEN WU Laser in situ keratomileusis (LASIK) Laser in situ keratomileusis (LASIK) S0800 2016 KARI WU Postoperative Visit, Without Charge Postoperative Visit, Without Charge 27619 2016 KOLTON GARCIAS Laser in situ keratomileusis (LASIK) Laser in situ keratomileusis (LASIK) S0800 2016 LORAINE GRACIA Ophthalmological Prior Patient Start Intermediate Level Care Ophthalmological Prior Patient Start Intermediate Level Care 49889 2016 KENDRICK SCOTT Scanning Computerized Ophthalmic Diagnostic Imaging Anterior Segment, Unilateral Scanning Computerized Ophthalmic Diagnostic Imaging Anterior Segment, Unilateral 35859 2016 PRISCILLA GRIFFIN Computerized Corneal Topography Computerized Corneal Topography 06755 2016 PRISCILLA GRIFFIN Determination Of Refractive State Determination Of Refractive State 93012 2016 PRISCILLA GRIFFIN Preventive Medicine Administration Of Health Risk Questionnaire Patient-Focused Preventive Medicine Administration Of Health Risk Questionnaire Patient-Focused 50053 2016 MISTI MICHELLE Ophthalmological New Patient Start Comprehensive Care Ophthalmological New Patient Start Comprehensive Care 99669 2016 JERARDO FELIX Determination Of Refractive State Determination Of Refractive State 78893 2016 JERARDO FELIX Computerized Corneal Topography Computerized Corneal Topography 40016 2016 JERARDO FELIX [facility] Corneal Pachymetry Both Eyes Corneal Pachymetry Both Eyes 71624 2016 JERARDO FELIX External Ocular Photography External Ocular Photography 24177 2016 JERARDO FELIX [facility] Scanning Computerized Ophthalmic Diagnostic Imaging Anterior Segment, Unilateral Scanning Computerized Ophthalmic Diagnostic Imaging Anterior Segment, Unilateral 21091 2016 JERARDO FELIX Spectacles Services Fitting Monofocal Except For Aphakia Spectacles Services Fitting Monofocal Except For Aphakia 97396 2016 RAE MAGUIRE Determination Of Refractive State Determination Of Refractive State 55855 2016 RAE MAGUIRE Ophthalmological Prior Patient Start Comprehensive Care Ophthalmological Prior Patient Start Comprehensive Care 79908 2016 RAE MAGUIRE [facility] Psychiatric Diagnostic Evaluation Review of Records and Reports Psychiatric Diagnostic Evaluation Review of Records and Reports 09824 2016 CORY SANTIAGO [facility] Medical Nutrition Therapy Group (2 or More Individuals) Each 30 Minutes Medical Nutrition Therapy Group (2 or More Individuals) Each 30 Minutes 70101 2016 STEPHANIE MAYNARD [facility] Non-Physician Phone Call To Patient/Provider Brief (5-10min) Non-Physician Phone Call To Patient/Provider Brief (5-10min) 84699 2015 JULIA LUU Spoke with pt approx 5 mins. [facility] Spectacles Services Fitting Monofocal Except For Aphakia Spectacles Services Fitting Monofocal Except For Aphakia 89002 2013 KENDRICK VALLADARES Determination Of Refractive State Determination Of Refractive State 24131 2013 KENDRICK VALLADARES Ophthalmological Prior Patient Start Comprehensive Care Ophthalmological Prior Patient Start Comprehensive Care 73912 2013 KENDRICK VALLADARES [facility] Ear mold/insert, disposable, any type Ear mold/insert, disposable, any type V5265 2013 KINJAL GARCIA Patient education, not otherwise cla ified, non-physician provider, individual, per se ion Patient education, not otherwise classified, non-physician provider, individual, per session S9445 2013 KINJAL GARCIA Threshold Audiogram (Pure Tone) Threshold Audiogram (Pure Tone) 52173 2013 KINJAL GARCIA NO STS DoD Spectacles Services Fitting Monofocal Except For Aphakia Spectacles Services Fitting Monofocal Except For Aphakia 76126 2012 CECIL XIE FOC and ballistic Nupur Determination Of Refractive State Determination Of Refractive State 91717 2012 CECIL XIE Ophthalmological Prior Patient Start Comprehensive Care Ophthalmological Prior Patient Start Comprehensive Care 24407 2012 CECIL XIE Psychiatric Diagnostic Evaluation Review of Records and Reports Psychiatric Diagnostic Evaluation Review of Records and Reports 27572 2012 ANDREA MERCHANT Psychometric Neuropsych Testing Battery Admin By Computer Psychometric Neuropsych Testing Battery Admin By Computer 39890 2012 CHRISTIE FLORES Patient education, not otherwise cla ified, non-physician provider, individual, per se ion Patient education, not otherwise classified, non-physician provider, individual, per session S9445 2012 MONO OROZCO Threshold Audiogram (Pure Tone) Threshold Audiogram (Pure Tone) 83621 2012 MONO OROZCO Annual hearing test no sts noted DoD Ear mold/insert, disposable, any type Ear mold/insert, disposable, any type V5265 2012 MONO OROZCO Spectacles Services Fitting Monofocal Except For Aphakia Spectacles Services Fitting Monofocal Except For Aphakia 06009 2011 CECIL XIE Spectacles Services Fitting Monofocal Except For Aphakia Spectacles Services Fitting Monofocal Except For Aphakia 65606 2011 CECIL XIE FOC and BCGs DoD Determination Of Refractive State Determination Of Refractive State 26033 2011 CECIL XIE Ophthalmological Prior Patient Start Comprehensive Care Ophthalmological Prior Patient Start Comprehensive Care 81780 2011 CECIL XIE Patient Counseling Medical Management Five To Eight Patients Patient Counseling Medical Management Five To Eight Patients 31375 2011 NYASIA ALONSO Threshold Audiogram (Pure Tone) Threshold Audiogram (Pure Tone) 36619 2011 HUI CERRATO Ear mold/insert, disposable, any type Ear mold/insert, disposable, any type V5265 2011 HUI CERRATO [facility] Patient education, not otherwise cla ified, non-physician provider, individual, per se ion Patient education, not otherwise classified, non-physician provider, individual, per session S9445 2011 HUI CERRATO Orthopedic shoe addition, insole, rubber Orthopedic shoe addition, insole, rubber L3510 2011 STACI PETERS [facility] Physical Therapy Education Orthotics Training 2011 STACI PETERS Time In 1312/Time Out 1322 x 10 min: Pt issued OTS Spenco semi-rigid insoles for wear with all footwear. Instructed pt in proper wear, adjustments prn. [facility] Physical Therapy Service Evaluation Physical Therapy Service Evaluation 62941 2011 STACI PETERS [facility] Determination Of Refractive State Determination Of Refractive State 48537 2010 AAZRYEN LOZA [facility] Ophthalmological New Patient Start Comprehensive Care Ophthalmological New Patient Start Comprehensive Care 55149 2010 YEN AZAR [facility] Chiropractic Manip Treatmt (CMT) Spinal Three To Four Region Chiropractic Manip Treatmt (CMT) Spinal Three To Four Region 03848 TERELL CHOWDARY [facility] Chiropractic Manip Treatmt (CMT) Spinal One To Two Regions Chiropractic Manip Treatmt (CMT) Spinal One To Two Regions 57073 TERELL CHOWDARY [facility] Modalities Electrical Stimulation Unattended Modalities Electrical Stimulation Unattended 31065 TERELL CHOWDARY [facility] Modalities Heat Hot Packs Modalities Heat Hot Packs 46402 TERELL CHOWDARY [facility] Physical Therapy Service Evaluation Low Complexity Physical Therapy Service Evaluation Low Complexity 56497 BART GUZMÁN [facility] Physical Therapy: ___ Se ion Segments, 15 Minutes Each Physical Therapy: ___ Session Segments, 15 Minutes Each 04783 BART GUZMÁN [facility] Osteopathic Manip Treatment (OMT) 1-2 Body Regions Involved Osteopathic Manip Treatment (OMT) 1-2 Body Regions Involved 98019 BART GUZMÁN HVLAT to lumbar region to improve facet glide d/t facet impingement. Soft tissue cupping to reduce muscular tension [facility] Exercise equipment Exercise equipment A9300 BART GUZMÁN Stretch strap [facility] Modalities Cryotherapy Cold Packs Modalities Cryotherapy Cold Packs 42579 TERELL CHOWDARY [facility] Preventive Medicine Administration Of Health Risk Questionnaire Patient-Focused Preventive Medicine Administration Of Health Risk Questionnaire Patient-Focused 76476 GREGORY XIE Brief communication technology-based service, e.g. virtual check-in, by a physician or other qualified health care profe jermain who can report evaluation and management services, provided to an established patient, not originating from a related E/M service provided within the previous 7 days nor leading to an E/M service or procedure within the next 24 hours or soonest available appointment; 5-10 minutes of medical discu ion Brief communication technology-based service, e.g. virtual check-in, by a physician or other qualified health manager critical care unit who can report evaluation and management services, provided to an established patient, not originating from a related E/M service provided within the previous 7 days nor leading to an E/M service or procedure within the next 24 hours or soonest available appointment; 5-10 minutes of medical discussion G2012 GREGORY XIE Patient Counseling Medical Management Individual Patient Patient Counseling Medical Management Individual Patient 12604 CHICO BULLOCK DoD Waiver services; not otherwise specified (NOS) Waiver services; not otherwise specified (NOS) T2025 CHICO BULLOCK 5 min phone apt; 10 min note & coordination DoD Waiver services; not otherwise specified (NOS) Waiver services; not otherwise specified (NOS) T2025 ZZZBM_VIESON, ZZZBM_ADRIENN E M [facility] Non-Physician Phone Call To Patient/Provider Brief (5-10min) Non-Physician Phone Call To Patient/Provider Brief (5-10min) 20361 DIAN CANAS [facility] Social History Combined list of available smoking, tobacco, and other social history from Department of Defense and 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 Social History Type Response Date Comment Sourc e Sex Representation 08/03/2021 Unknow n Organization Tobacco Cigarette use: Never-cigarette user. Other Tobacco use: Never-other tobacco user (not cigarettes). Ambulatory Pharmacy Sexual Orientation Ambula tory Pharmacy Gender identity Ambulator y Pharmacy This section is an empty social history section. [facility] Assessment and Plan Combined list of future care activities from Department of Defense and Veterans Affairs facilities (e.g., assessment and plan notes, appointments, orders, and referrals). Additional future care activities may be listed in the Plan of Care section. Result Assessment and Plan Date Source Assessment and Plan Extracted from:Title : Virtual MHA/PHA [facility] Author: CHELSEA CHEEK NP, Primary Care Date: 08/14/25 Encounter for issue of other medical certificate Reviewed and assessed IMR status, discussed any/all deficiencies and how to rectify them where applicable. Reviewed any profiles including duty-limiting and/or deployment-limiting conditions, see PHA/MHA documentation for additional detail. Provided age and gender specific, evidence-based preventative health information and recommendations in accordance with USPSTF recommendations. Assessed currency of required occupational and environmental health evaluations and exams. SM reports not due for special duty physical at this time and this is consistent with available documentation on chart review. Ensured deployment-related health assessments up to date. SM is taking lisinopril and Crestor as prescribed. I advised him to f/u with PCM for cholesterol screening. He verbalized an understanding and has no further concerns at this time. Reviewed and assessed responses to screening tools: AUDIT-C: 4. No elevated risk for alcohol disorder. PTSD screening: PC-PTSD-5 score < 3. No elevated risk. No further evaluation indicated. Depression Screening: PHQ-2 score <3. No elevated risk. No further evaluation indicated. C-SSRS: No elevated risk Counseled SM on available resources ( [employer], [employer], walk-in , walk-in ER, 91, 's chain of command, etc.) and how to contact them if needed. SM verbalized understanding and agrees to contact if needed. SM denies suicidal and/or homicidal ideations. Current concerns/complaints identified while conducting the PHA and MHA addressed and counseled SM to follow up with PCM for further evaluation/treatment. See PHA/MHA documentation for additional information. Greater than 10 minutes total time spent interviewing and counseling patient/health services rn as well as reviewing and updating patient record. Extracted from:Title: [facility] Med f/u Author: KASSIE MA PA, Family Medicine Date: 04/01/25 1. Adjustment disorder with mixed anxiety and depressed mood 34 y/o Male here for virtual appointment. Verified name and . Discussed the following: Pt Following up for Lexapro 10 mg. Patient states medication is doing well overall. He has noted increased nighttime sweating even with the AC on since starting medication. He denies any other side effects of the medication at this time. He states he is comfortable continuing on medication for now to see if side effects will resolve on her own. Patient denies SI/HI. -We will continue Lexapro 10 mg; Cautioned regarding withdrawal symptoms if medication is stopped abruptly without taper. - Advised patient to go to ER immediately for SI/HI/morbid ideation. - Follow up in clinic: as needed. - All questions answered. Patient verbalized understanding and agreed with plan. Orders: escitalopram(escitalopram 10 mg oral tablet), See Instructions, take one tablet every day for depression and anxiety, # 90 tab(s), 0 total refill(s), Maintenance, 30 days, Pharmacy: [facility] [Not filled] The patient (is) World [employer] Qualified. AM Dispo: Non-Fly Cleared for AFSC/MOS Duties: Yes Cleared for continued service: Yes Cleared for mobility duties: Yes Cleared for participation in physical fitness program: Yes PHA/MHA/DRHA: UTD Visit deployment related: No Profile Reviewed N/A MEB in progress: No IMR/ASIMS Status: Kassie Heller Capt, [place] [address] Please note that this dictation was completed with computer voice recognition software, [employer]. Quite often unanticipated grammatical, syntax, homophones, and other interpretive errors are inadvertently transcribed by the computer software. Please disregard these errors and excuse any errors that have escaped final proofreading. If are any questions regarding documentation, please contact this provider directly. Extracted from:Title: EXERCISE Deployment Clearance Author: KASSIE MA PA, Family Medicine Date: 03/04/25 1. Encounter for administrative examinations, unspecified EXERCISE record review was conducted. Non-deployable due to new medication of Lexapro. Denies significant SE aside from lethargy/GI issues. [ ] no patient or provider concerns identified [ ] patient concerns identified and follow up recommended to patient [x] deployment disqualifying condition identified and follow up recommended to patient Follow up: [ ] Recommend emergent ER evaluation for . 911 called. [ ] Recommend urgent care evaluation for (acute issue) given lack of appointment availability within [facility] for exercise. Patient to utilize Nurse Advice line for urgent care referral. Patient expressed understanding and agreement with the plan. [x] Recommend evaluation by PCM within 6-8wks for medication f/u. Patient to schedule routine appointment. Patient expressed understanding and agreement with the plan. The patient (is) World [employer] Qualified. AM Dispo: Non-Fly Cleared for AFSC/MOS Duties: Yes Cleared for continued service: Yes Cleared for mobility duties: No Cleared for participation in physical fitness program: Yes PHA/MHA/DRHA: UTD Visit deployment related: Yes Profile Reviewed N/A MEB in progress: No IMR/ASIMS Status: Kassie Heller, 1st Lt, [place] [address] Please note that this dictation was completed with computer voice recognition software, [employer]. Quite often unanticipated grammatical, syntax, homophones, and other interpretive errors are inadvertently transcribed by the computer software. Please disregard these errors and excuse any errors that have escaped final proofreading. If are any questions regarding documentation, please contact this provider directly. Extracted from:Title: [facility] Med request Author: KASSIE MA PA, Family Medicine Date: 02/17/25 1. Adjustment disorder with mixed anxiety and depressed mood 34-year-old male presents to clinic to request mental health medications. Patient states he has been having increased depression/anxiety and has been talking with Ms. Gilliam. He states [facility] has been very helpful he could benefit from additional pharmacotherapy. Patient denies HI/SI. States follow-up appointment with Ms. Gilliam later this week. GAD7 Score: 15 Score Critical PHQ-9 Total Depression Score: 13 PLAN: - Rx: escitalopram (Lexapro) 10mg. Discussed ADRs: lethargy, decreased libido, GI upset, etc. Cautioned regarding withdrawal symptoms if medication is stopped abruptly without taper. - Advised patient to go to ER immediately for SI/HI/morbid ideation. - Follow up in clinic: 6-8 weeks or earlier if needed. - All questions answered. Patient verbalized understanding and agreed with plan. Orders: escitalopram(escitalopram 10 mg oral tablet), See Instructions, Take one-half tablet by mouth every day for 7 days, then take one tablet every day for depression and anxiety, # 57 tab(s), 0 total refill(s), Maintenance, 30 days, Pharmacy: [facility] [Not filled] The patient (is not) World Wide Qualified. AM Dispo: Non-Fly Cleared for AFSC/MOS Duties: Yes Cleared for continued service: Yes Cleared for mobility duties: Would require waiver Cleared for participation in physical fitness program: Yes PHA/MHA/DRHA: UTD Visit deployment related: No Profile Reviewed N/A MEB in progress: No IMR/ASIMS Status: Kassie Heller, 1st Lt, PAKalebC [facility] [place] [address] Please note that this dictation was completed with computer voice recognition software, [employer]. Quite often unanticipated grammatical, syntax, homophones, and other interpretive errors are inadvertently transcribed by the computer software. Please disregard these errors and excuse any errors that have escaped final proofreading. If are any questions regarding documentation, please contact this provider directly. Extracted from:Title: [facility] - ER f/u Author: JUSTIN CUI DO Date: 12/24/24 1. Gastritis Acute, controlled, resolved - Pt had episode of viral gastritis with vomiting and had esophageal inflammation - Treated with GI cocktail. CT scan only remarkable for esophageal inflammation - No chronic history of GERD, no need for prolonger PPI use at this time - Patient educated on red flag symptoms and can contact us for PPI use if acid reflux continues The patient (is ) World [employer] Qualified. AM Dispo: Non-Fly Cleared for AFSC/MOS Duties: Yes Cleared for continued service: Yes Cleared for mobility duties: Yes Cleared for participation in physical fitness program: Yes PHA/MHA/DRHA: UTD. Visit deployment related: No Profile Reviewed MEB in progress: No IMR/ASIMS Status: [X] Yellow (Action: Member is currently due for dental, notified to take action) 2. Right knee pain Chronic, stable - Recommended PT and yoga for flexibility. Concern for OA vs chondral defect. Knee exam otherwsie unremarkable for meniscus, ACL, PCL, LCL, MCL injury. - Ordered right knee xray - Recommend follow-up in 6-8 weeks after starting PT and if unimproved can order MRI. Ordered: XR Knee Weight Bearing 3+ Right Referral Request 2.0 - DoD Capt Manan (), [facility], Jig Operator, PGY-2 [employer], [facility] [place] This note was dictated using [employer] dictation software. While it was proofread for errors, there may still be grammatical and dictation errors. Extracted from:Title: [facility] Viral GE Author: SHERICE SANCHES PA Date: 12/16/24 1. Gastroenteritis 34 Years old M c/o N/V/D and abd pain x 1 day(s). Denies hematemesis, hematochezia. VS notable for HR 107. Repeat 101. BP 143/96. Repeat 131/80. Mild TTP abdomen diffusely, otherwise PE unremarkable. Negative Mcnally sign. Likely viral GE vs foodborne illness. Tachycardia likely d/t current illness. - Discussed supportive care - Advised to avoid anti-diarrhea meds - Zofran ODT 4mg prn - Quarters placed for 48 hrs - ED precautions given - F/u prn. Will consider labs and imaging if no improvement Orders: ondansetron(Zofran ODT 4 mg oral tablet, disintegrating), 1 tab(s), Oral, every 8 hr, PRN nausea/vomiting, # 30 tab(s), 0 total refill(s), Acute, 12/26/2024, Pharmacy: [id number] [External Rx] The patient (is) World Wide Qualified. AM Dispo: Non-Fly Cleared for AFSC/MOS Duties: Yes Cleared for continued service: Yes Cleared for mobility duties: Yes Cleared for participation in physical fitness program: Yes PHA/MHA/DRHA: UTD Visit deployment related: No Profile: N/A MEB in progress: No IMR/ASIMS Status: Yellow Medications reconciled. Pt verbalized understanding and agreement. SHERICE SANCHES, 1st Lt, PA-C [facility] [place] [address] Extracted from:Title: Virtual Asynchronous PHA, Record Review Only Author: BRADLEY COLBERT MD Date: 08/30/24 1. 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 MHA completed in ASIMS at prior visit, reviewed and copied to this record. Ship Loader with no acute MH concerns or questions on mental health resources documented in MHA. Member not seen or examined, administrative record review only. Preventative services not reviewed as part of PHA process, readiness review only, PHA does not take the place of routine wellness or PCM visit. Reviewed readiness immunizations status. Reviewed readiness lab. Reviewed occupational health examinations status, member to schedule any overdue items with the [facility], member not contacted. Any non-readiness medical concerns to be addressed with PCM. Medication list reviewed for any unaddressed retention limiting conditions or concerns; however member not contacted and interviewed at time of visit. Any recent medication changes and/or concerns will need to be addressed by PCM team. Time spent in asynchronous patient care was approximately 10min. PHA completed and ASIMS updated. Any retention and/or readiness issues identified while conducting the PHA have been communicated to PCM via Pressy. produce team member to follow up with their PCM for all other concerns. //SIGNED// BRADLEY COLBERT, Col, USAF, MC, FS Family Physician/Flight Surgeon [address] OMRS/SGXF [facility] [employer] (p) [phone] Extracted from:Title: [facility] MHA Author: JJ SHORT IDMT Date: 08/27/24 1. 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 Pt denies any SI/HI/IN at this time. Pt given MH resources if the need arises. MHA signed in ASIMS. PVUA, no further questions or concerns. IMR Yellow- PHA Also completed PD MHA as pasted above. Extracted from:Title: WALK-IN BP Author: NINO STOCKTON Date: 12/29/23 1. Elevated blood pressure Reviewed BP which is WNL for JNC 8 goals. Cleared for deployment. See [facility] for further information. Maj Nino Stockton PA-C [facility] [address] [place], [place] Extracted from:Title: CSSP Author: PREET MUNOZ, EMT Date: 12/29/23 [facility] Current Visit No Results Found Extracted from:Title: Immunizations Author: TAHIR GRANDA, EMT Date: 12/04/23 measles/mumps/rubella virus vaccine: 0.5 mL (12/04/23 09:30:00) Diagnosis: Vaccination given Comment: Other status: M-M-R II; 0.5 mL, SubCutaneous, Injection, Vaccine, First Dose: 12/04/2023 09:30:00 MANUFACTURING LAB TECHNICIAN, 12/04/2023 09:30:00 MANUFACTURING LAB TECHNICIAN (Completed) by LIZZIE LYONS MD Imadm Prq Id Subq/Im Njxs 1 Vaccine [id number]; 12/04/2023 09:31:00 MANUFACTURING LAB TECHNICIAN (Completed) by LIZZIE LYONS MD End of [...] JEANMARIE HILLIARD NP Date: 06/17/22 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 Member is cleared for PHA and to participate in AF fitness program without restriction. See attached ANNUAL PERIODIC HEATLH ASSESSMENT note. Member denied having a splenectomy in the past. Available labs and radiology reports since last Annual PHA were reviewed and addressed if not addressed prior to this visit. Appointment was completed via telephone, and lasted 5-10 min. 10/07/[address] [place] [address] Assessment and Plan Extracted from:Title : Virtual MHA/PHA [facility] Author: CHELSEA CHEEK NP, Primary Care Date: 08/14/25 Encounter for issue of other medical certificate Reviewed and assessed IMR status, discussed any/all deficiencies and how to rectify them where applicable. Reviewed any profiles including duty-limiting and/or deployment-limiting conditions, see PHA/MHA documentation for additional detail. Provided age and gender specific, evidence-based preventative health information and recommendations in accordance with USPSTF recommendations. Assessed currency of required occupational and environmental health evaluations and exams. SM reports not due for special duty physical at this time and this is consistent with available documentation on chart review. Ensured deployment-related health assessments up to date. SM is taking lisinopril and Crestor as prescribed. I advised him to f/u with PCM for cholesterol screening. He verbalized an understanding and has no further concerns at this time. Reviewed and assessed responses to screening tools: AUDIT-C: 4. No elevated risk for alcohol disorder. PTSD screening: PC-PTSD-5 score < 3. No elevated risk. No further evaluation indicated. Depression Screening: PHQ-2 score <3. No elevated risk. No further evaluation indicated. C-SSRS: No elevated risk Counseled SM on available resources ( [employer], [employer], walk-in , walk-in , [facility], 's chain of command, etc.) and how to contact them if needed. SM verbalized understanding and agrees to contact if needed. SM denies suicidal and/or homicidal ideations. Current concerns/complaints identified while conducting the PHA and MHA addressed and counseled SM to follow up with PCM for further evaluation/treatment. See PHA/MHA documentation for additional information. Greater than 10 minutes total time spent interviewing and counseling patient/health services rn as well as reviewing and updating patient record. Extracted from:Title: [facility] Med f/u Author: KASSIE MA PA, Family Medicine Date: 04/01/25 1. Adjustment disorder with mixed anxiety and depressed mood 34 y/o Male here for virtual appointment. Verified name and . Discussed the following: Pt Following up for Lexapro 10 mg. Patient states medication is doing well overall. He has noted increased nighttime sweating even with the AC on since starting medication. He denies any other side effects of the medication at this time. He states he is comfortable continuing on medication for now to see if side effects will resolve on her own. Patient denies SI/HI. -We will continue Lexapro 10 mg; Cautioned regarding withdrawal symptoms if medication is stopped abruptly without taper. - Advised patient to go to ER immediately for SI/HI/morbid ideation. - Follow up in clinic: as needed. - All questions answered. Patient verbalized understanding and agreed with plan. Orders: escitalopram(escitalopram 10 mg oral tablet), See Instructions, take one tablet every day for depression and anxiety, # 90 tab(s), 0 total refill(s), Maintenance, 30 days, Pharmacy: [facility] [Not filled] The patient (is) World Wide Qualified. AM Dispo: Non-Fly Cleared for AFSC/MOS Duties: Yes Cleared for continued service: Yes Cleared for mobility duties: Yes Cleared for participation in physical fitness program: Yes PHA/MHA/DRHA: UTD Visit deployment related: No Profile Reviewed N/A MEB in progress: No IMR/ASIMS Status: Kassie Heller Capt, [place] [address] Please note that this dictation was completed with computer voice recognition software, [employer]. Quite often unanticipated grammatical, syntax, homophones, and other interpretive errors are inadvertently transcribed by the computer software. Please disregard these errors and excuse any errors that have escaped final proofreading. If are any questions regarding documentation, please contact this provider directly. Extracted from:Title: EXERCISE Deployment Clearance Author: KASSIE MA PA, Family Medicine Date: 03/04/25 1. Encounter for administrative examinations, unspecified EXERCISE record review was conducted. Non-deployable due to new medication of Lexapro. Denies significant SE aside from lethargy/GI issues. [ ] no patient or provider concerns identified [ ] patient concerns identified and follow up recommended to patient [x] deployment disqualifying condition identified and follow up recommended to patient Follow up: [ ] Recommend emergent ER evaluation for . 911 called. [ ] Recommend urgent care evaluation for (acute issue) given lack of appointment availability within [facility] for exercise. Patient to utilize Nurse Advice line for urgent care referral. Patient expressed understanding and agreement with the plan. [x] Recommend evaluation by PCM within 6-8wks for medication f/u. Patient to schedule routine appointment. Patient expressed understanding and agreement with the plan. The patient (is) World Wide Qualified. AM Dispo: Non-Fly Cleared for AFSC/MOS Duties: Yes Cleared for continued service: Yes Cleared for mobility duties: No Cleared for participation in physical fitness program: Yes PHA/MHA/DRHA: UTD Visit deployment related: Yes Profile Reviewed N/A MEB in progress: No IMR/ASIMS Status: Kassie Heller, 1st Lt, PAKalebC [facility] [place] [address] Please note that this dictation was completed with computer voice recognition software, [employer]. Quite often unanticipated grammatical, syntax, homophones, and other interpretive errors are inadvertently transcribed by the computer software. Please disregard these errors and excuse any errors that have escaped final proofreading. If are any questions regarding documentation, please contact this provider directly. Extracted from:Title: [facility] Med request Author: KASSIE MA PA, Family Medicine Date: 02/17/25 1. Adjustment disorder with mixed anxiety and depressed mood 34-year-old male presents to clinic to request mental health medications. Patient states he has been having increased depression/anxiety and has been talking with Ms. Gilliam. He states OP has been very helpful he could benefit from additional pharmacotherapy. Patient denies HI/SI. States follow-up appointment with Ms. Gilliam later this week. GAD7 Score: 15 Score Critical PHQ-9 Total Depression Score: 13 PLAN: - Rx: escitalopram (Lexapro) 10mg. Discussed ADRs: lethargy, decreased libido, GI upset, etc. Cautioned regarding withdrawal symptoms if medication is stopped abruptly without taper. - Advised patient to go to ER immediately for SI/HI/morbid ideation. - Follow up in clinic: 6-8 weeks or earlier if needed. - All questions answered. Patient verbalized understanding and agreed with plan. Orders: escitalopram(escitalopram 10 mg oral tablet), See Instructions, Take one-half tablet by mouth every day for 7 days, then take one tablet every day for depression and anxiety, # 57 tab(s), 0 total refill(s), Maintenance, 30 days, Pharmacy: [facility] [Not filled] The patient (is not) World Wide Qualified. AM Dispo: Non-Fly Cleared for AFSC/MOS Duties: Yes Cleared for continued service: Yes Cleared for mobility duties: Would require waiver Cleared for participation in physical fitness program: Yes PHA/MHA/DRHA: UTD Visit deployment related: No Profile Reviewed N/A MEB in progress: No IMR/ASIMS Status: Kvng Ma Kassie Sade, 1st Lt, [place] [address] Please note that this dictation was completed with computer voice recognition software, [employer]. Quite often unanticipated grammatical, syntax, homophones, and other interpretive errors are inadvertently transcribed by the computer software. Please disregard these errors and excuse any errors that have escaped final proofreading. If are any questions regarding documentation, please contact this provider directly. Extracted from:Title: [facility] - ER f/u Author: JUSTIN CUI DO Date: 12/24/24 1. Gastritis Acute, controlled, resolved - Pt had episode of viral gastritis with vomiting and had esophageal inflammation - Treated with GI cocktail. CT scan only remarkable for esophageal inflammation - No chronic history of GERD, no need for prolonger PPI use at this time - Patient educated on red flag symptoms and can contact us for PPI use if acid reflux continues The patient (is ) World Wide Qualified. AM Dispo: Non-Fly Cleared for AFSC/MOS Duties: Yes Cleared for continued service: Yes Cleared for mobility duties: Yes Cleared for participation in physical fitness program: Yes PHA/MHA/DRHA: UTD. Visit deployment related: No Profile Reviewed MEB in progress: No IMR/ASIMS Status: [X] Yellow (Action: Member is currently due for dental, notified to take action) 2. Right knee pain Chronic, stable - Recommended PT and yoga for flexibility. Concern for OA vs chondral defect. Knee exam otherwsie unremarkable for meniscus, ACL, PCL, LCL, MCL injury. - Ordered right knee xray - Recommend follow-up in 6-8 weeks after starting PT and if unimproved can order MRI. Ordered: XR Knee Weight Bearing 3+ Right Referral Request 2.0 - DoD Capt Manan (), [facility] Jig Operator, PGY-2 [employer], [facility] [place] This note was dictated using clipsync dictation software. While it was proofread for errors, there may still be grammatical and dictation errors. Extracted from:Title: [facility] Viral GE Author: SHERICE SANCHES PA Date: 12/16/24 1. Gastroenteritis 34 Years old M c/o N/V/D and abd pain x 1 day(s). Denies hematemesis, hematochezia. VS notable for HR 107. Repeat 101. BP 143/96. Repeat 131/80. Mild TTP abdomen diffusely, otherwise PE unremarkable. Negative Mcnally sign. Likely viral GE vs foodborne illness. Tachycardia likely d/t current illness. - Discussed supportive care - Advised to avoid anti-diarrhea meds - Zofran ODT 4mg prn - Quarters placed for 48 hrs - ED precautions given - F/u prn. Will consider labs and imaging if no improvement Orders: ondansetron(Zofran ODT 4 mg oral tablet, disintegrating), 1 tab(s), Oral, every 8 hr, PRN nausea/vomiting, # 30 tab(s), 0 total refill(s), Acute, 12/26/2024, Pharmacy: [facility] #[id number] [External Rx] The patient (is) World Wide Qualified. AM Dispo: Non-Fly Cleared for AFSC/MOS Duties: Yes Cleared for continued service: Yes Cleared for mobility duties: Yes Cleared for participation in physical fitness program: Yes PHA/MHA/DRHA: UTD Visit deployment related: No Profile: N/A MEB in progress: No IMR/ASIMS Status: Yellow Medications reconciled. Pt verbalized understanding and agreement. SHERICE SANCHES, 1st Lt, PA-C [facility] [place] [address] Extracted from:Title: Virtual Asynchronous PHA, Record Review Only Author: BRADLEY COLBERT MD Date: 08/30/24 1. 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 MHA completed in ASIMS at prior visit, reviewed and copied to this record. Ship Loader with no acute MH concerns or questions on mental health resources documented in MHA. Member not seen or examined, administrative record review only. Preventative services not reviewed as part of PHA process, readiness review only, PHA does not take the place of routine wellness or PCM visit. Reviewed readiness immunizations status. Reviewed readiness lab. Reviewed occupational health examinations status, member to schedule any overdue items with the [facility], member not contacted. Any non-readiness medical concerns to be addressed with PCM. Medication list reviewed for any unaddressed retention limiting conditions or concerns; however member not contacted and interviewed at time of visit. Any recent medication changes and/or concerns will need to be addressed by PCM team. Time spent in asynchronous patient care was approximately 10min. PHA completed and ASIMS updated. Any retention and/or readiness issues identified while conducting the PHA have been communicated to PCM via Mela. produce team member to follow up with their PCM for all other concerns. //SIGNED// Lt Darien LEOS, USAF, MC, FS Family Physician/Flight Surgeon 375 OMRS/SGXF [facility] [place] [employer] P) [phone] Extracted from:Title: [facility] MHA Author: JJ SHORT IDMT Date: 08/27/24 1. 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 Pt denies any SI/HI/IN at this time. Pt given MH resources if the need arises. MHA signed in ASIMS. PVUA, no further questions or concerns. IMR Yellow- PHA Also completed PD MHA as pasted above. Extracted from:Title: WALK-IN BP Author: NINO STOCKTON Date: 12/29/23 1. Elevated blood pressure Reviewed BP which is WNL for JNC 8 goals. Cleared for [facility]. [facility] Maj Nino Stockton PA-C [facility] [address] [place], [place] Extracted from:Title: CSSP Author: PREET MUNOZ, EMT Date: 12/29/23 [facility] Current Visit No Results Found Extracted from:Title: Immunizations Author: TAHIR GRANDA, EMT Date: 12/04/23 measles/mumps/rubella virus vaccine: 0.5 mL (12/04/23 09:30:00) Diagnosis: Vaccination given Comment: Other status: M-M-R II; 0.5 mL, SubCutaneous, Injection, Vaccine, First Dose: 12/04/2023 09:30:00 MANUFACTURING LAB TECHNICIAN, 12/04/2023 09:30:00 MANUFACTURING LAB TECHNICIAN (Completed) by LIZZIE LYONS MD Imadm Prq Id Subq/Im Njxs 1 Vaccine [id number]; 12/04/2023 09:31:00 MANUFACTURING LAB TECHNICIAN (Completed) by LIZZIE LYONS MD End of Orders Extracted from:Title: Immunizations Author: TAHIR GRANDA, EMT Date: 10/25/23 Encounter has Screening Questions previously completed. Refer to screening questions for additional information of vaccination given and clearance. More information is also available in the Immunization Tab for patient's history of vaccinations. Closing Encounter for administrative completion. 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 Member is cleared for PHA and to participate in AF fitness program without restriction. See attached ANNUAL PERIODIC HEATLH ASSESSMENT note. Member denied having a splenectomy in the past. Available labs and radiology reports since last Annual PHA were reviewed and addressed if not addressed prior to this visit. Appointment was completed via telephone, and lasted 5-10 min. 10/07/2025 [id number] Assessment and Plan Extracted from:Title : Virtual MHA/PHA [facility] Author: CHELSEA CHEEK CRNP, Primary Care Date: 08/14/25 Encounter for issue of other medical certificate Reviewed and assessed IMR status, discussed any/all deficiencies and how to rectify them where applicable. Reviewed any profiles including duty-limiting and/or deployment-limiting conditions, see PHA/MHA documentation for additional detail. Provided age and gender specific, evidence-based preventative health information and recommendations in accordance with USPSTF recommendations. Assessed currency of required occupational and environmental health evaluations and exams. SM reports not due for special duty physical at this time and this is consistent with available documentation on chart review. Ensured deployment-related health assessments up to date. SM is taking lisinopril and Crestor as prescribed. I advised him to f/u with PCM for cholesterol screening. He verbalized an understanding and has no further concerns at this time. Reviewed and assessed responses to screening tools: AUDIT-C: 4. No elevated risk for alcohol disorder. PTSD screening: PC-PTSD-5 score < 3. No elevated risk. No further evaluation indicated. Depression Screening: PHQ-2 score <3. No elevated risk. No further evaluation indicated. C-SSRS: No elevated risk Counseled SM on available resources ( [employer], [employer], walk-in , walk-in ER, [facility], 's chain of command, etc.) and how to contact them if needed. SM verbalized understanding and agrees to contact if needed. SM denies suicidal and/or homicidal ideations. Current concerns/complaints identified while conducting the PHA and MHA addressed and counseled SM to follow up with PCM for further evaluation/treatment. See PHA/MHA documentation for additional information. Greater than 10 minutes total time spent interviewing and counseling patient/health services rn as well as reviewing and updating patient record. Extracted from:Title: [facility] f/u Author: KASSIE MA PA, Family Medicine Date: 04/01/25 1. Adjustment disorder with mixed anxiety and depressed mood 34 y/o Male here for virtual appointment. Verified name and . Discussed the following: Pt Following up for Lexapro 10 mg. Patient states medication is doing well overall. He has noted increased nighttime sweating even with the AC on since starting medication. He denies any other side effects of the medication at this time. He states he is comfortable continuing on medication for now to see if side effects will resolve on her own. Patient denies SI/HI. -We will continue Lexapro 10 mg; Cautioned regarding withdrawal symptoms if medication is stopped abruptly without taper. - Advised patient to go to ER immediately for SI/HI/morbid ideation. - Follow up in clinic: as needed. - All questions answered. Patient verbalized understanding and agreed with plan. Orders: escitalopram(escitalopram 10 mg oral tablet), See Instructions, take one tablet every day for depression and anxiety, # 90 tab(s), 0 total refill(s), Maintenance, 30 days, Pharmacy: [facility] [Not filled] The patient (is) World Wide Qualified. AM Dispo: Non-Fly Cleared for AFSC/MOS Duties: Yes Cleared for continued service: Yes Cleared for mobility duties: Yes Cleared for participation in physical fitness program: Yes PHA/MHA/DRHA: UTD Visit deployment related: No Profile Reviewed N/A MEB in progress: No IMR/ASIMS Status: Kassie Heller Capt, [place] [address] Please note that this dictation was completed with computer voice recognition software, [employer]. Quite often unanticipated grammatical, syntax, homophones, and other interpretive errors are inadvertently transcribed by the computer software. Please disregard these errors and excuse any errors that have escaped final proofreading. If are any questions regarding documentation, please contact this provider directly. Extracted from:Title: EXERCISE Deployment Clearance Author: KASSIE MA PA, Family Medicine Date: 03/04/25 1. Encounter for administrative examinations, unspecified EXERCISE record review was conducted. Non-deployable due to new medication of Lexapro. Denies significant SE aside from lethargy/GI issues. [ ] no patient or provider concerns identified [ ] patient concerns identified and follow up recommended to patient [x] deployment disqualifying condition identified and follow up recommended to patient Follow up: [ ] Recommend emergent ER evaluation for . 911 called. [ ] Recommend urgent care evaluation for (acute issue) given lack of appointment availability within [facility] for exercise. Patient to utilize Nurse Advice line for urgent care referral. Patient expressed understanding and agreement with the plan. [x] Recommend evaluation by PCM within 6-8wks for medication f/u. Patient to schedule routine appointment. Patient expressed understanding and agreement with the plan. The patient (is) World Wide Qualified. AM Dispo: Non-Fly Cleared for AFSC/MOS Duties: Yes Cleared for continued service: Yes Cleared for mobility duties: No Cleared for participation in physical fitness program: Yes PHA/MHA/DRHA: UTD Visit deployment related: Yes Profile Reviewed N/A MEB in progress: No IMR/ASIMS Status: Kassie Heller, 1st Lt, PA-C [facility] [place] [address] Please note that this dictation was completed with computer voice recognition software, [employer]. Quite often unanticipated grammatical, syntax, homophones, and other interpretive errors are inadvertently transcribed by the computer software. Please disregard these errors and excuse any errors that have escaped final proofreading. If are any questions regarding documentation, please contact this provider directly. Extracted from:Title: [facility] Med request Author: KASSIE MA PA, Family Medicine Date: 02/17/25 1. Adjustment disorder with mixed anxiety and depressed mood 34-year-old male presents to clinic to request mental health medications. Patient states he has been having increased depression/anxiety and has been talking with Ms. Gilliam. He states [facility] has been very helpful he could benefit from additional pharmacotherapy. Patient denies HI/SI. States follow-up appointment with Ms. Gilliam later this week. GAD7 Score: 15 Score Critical PHQ-9 Total Depression Score: 13 PLAN: - Rx: escitalopram (Lexapro) 10mg. Discussed ADRs: lethargy, decreased libido, GI upset, etc. Cautioned regarding withdrawal symptoms if medication is stopped abruptly without taper. - Advised patient to go to ER immediately for SI/HI/morbid ideation. - Follow up in clinic: 6-8 weeks or earlier if needed. - All questions answered. Patient verbalized understanding and agreed with plan. Orders: escitalopram(escitalopram 10 mg oral tablet), See Instructions, Take one-half tablet by mouth every day for 7 days, then take one tablet every day for depression and anxiety, # 57 tab(s), 0 total refill(s), Maintenance, 30 days, Pharmacy: [facility] [Not filled] The patient (is not) [employer] Qualified. AM Dispo: Non-Fly Cleared for AFSC/MOS Duties: Yes Cleared for continued service: Yes Cleared for mobility duties: Would require waiver Cleared for participation in physical fitness program: Yes PHA/MHA/DRHA: UTD Visit deployment related: No Profile Reviewed N/A MEB in progress: No IMR/ASIMS Status: Kassie Heller, 1st Lt, PA-C [facility] [place] [address] Please note that this dictation was completed with computer voice recognition software, [employer]. Quite often unanticipated grammatical, syntax, homophones, and other interpretive errors are inadvertently transcribed by the computer software. Please disregard these errors and excuse any errors that have escaped final proofreading. If are any questions regarding documentation, please contact this provider directly. Extracted from:Title: [facility] - ER f/u Author: JUSTIN CUI DO Date: 12/24/24 1. Gastritis Acute, controlled, resolved - Pt had episode of viral gastritis with vomiting and had esophageal inflammation - Treated with GI cocktail. CT scan only remarkable for esophageal inflammation - No chronic history of GERD, no need for prolonger PPI use at this time - Patient educated on red flag symptoms and can contact us for PPI use if acid reflux continues The patient (is ) [employer] Qualified. AM Dispo: Non-Fly Cleared for AFSC/MOS Duties: Yes Cleared for continued service: Yes Cleared for mobility duties: Yes Cleared for participation in physical fitness program: Yes PHA/MHA/DRHA: UTD. Visit deployment related: No Profile Reviewed MEB in progress: No IMR/ASIMS Status: [X] Yellow (Action: Member is currently due for dental, notified to take action) 2. Right knee pain Chronic, stable - Recommended PT and yoga for flexibility. Concern for OA vs chondral defect. Knee exam otherwsie unremarkable for meniscus, ACL, PCL, LCL, MCL injury. - Ordered right knee xray - Recommend follow-up in 6-8 weeks after starting PT and if unimproved can order MRI. Ordered: XR Knee Weight Bearing 3+ Right Referral Request 2.0 - DoD Capt Manan (), [facility], Jig Operator, PGY-2 [employer], HCOS/SGGF [place] This note was dictated using clipsync dictation software. While it was proofread for errors, there may still be grammatical and dictation errors. Extracted from:Title: [facility] Viral GE Author: SHERICE SANCHES PA Date: 12/16/24 1. Gastroenteritis 34 Years old M c/o N/V/D and abd pain x 1 day(s). Denies hematemesis, hematochezia. VS notable for HR 107. Repeat 101. BP 143/96. Repeat 131/80. Mild TTP abdomen diffusely, otherwise PE unremarkable. Negative Mcnally sign. Likely viral GE vs foodborne illness. Tachycardia likely d/t current illness. - Discussed supportive care - Advised to avoid anti-diarrhea meds - Zofran ODT 4mg prn - Quarters placed for 48 hrs - ED precautions given - F/u prn. Will consider labs and imaging if no improvement Orders: ondansetron(Zofran ODT 4 mg oral tablet, disintegrating), 1 tab(s), Oral, every 8 hr, PRN nausea/vomiting, # 30 tab(s), 0 total refill(s), Acute, 12/26/2024, Pharmacy: [id number] [External Rx] The patient (is) World [employer] Qualified. AM Dispo: Non-Fly Cleared for AFSC/MOS Duties: Yes Cleared for continued service: Yes Cleared for mobility duties: Yes Cleared for participation in physical fitness program: Yes PHA/MHA/DRHA: UTD Visit deployment related: No Profile: N/A MEB in progress: No IMR/ASIMS Status: Yellow Medications reconciled. Pt verbalized understanding and agreement. SHERICE SANCHES, 1st Lt, [place] [facility] [address] Extracted from:Title: Virtual Asynchronous PHA, Record Review Only Author: BRADLEY COLBERT MD Date: 08/30/24 1. 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 MHA completed in [facility] at prior visit, reviewed and copied to this record. Ship Loader with no acute MH concerns or questions on mental health resources documented in MHA. Member not seen or examined, administrative record review only. Preventative services not reviewed as part of PHA process, readiness review only, PHA does not take the place of routine wellness or PCM visit. Reviewed readiness immunizations status. Reviewed readiness lab. Reviewed occupational health examinations status, member to schedule any overdue items with the [facility], member not contacted. Any non-readiness medical concerns to be addressed with PCM. Medication list reviewed for any unaddressed retention limiting conditions or concerns; however member not contacted and interviewed at time of visit. Any recent medication changes and/or concerns will need to be addressed by PCM team. Time spent in asynchronous patient care was approximately 10min. PHA completed and ASIMS updated. Any retention and/or readiness issues identified while conducting the PHA have been communicated to PCM via Pressy. produce team member to follow up with their PCM for all other concerns. //SIGNED// BRADLEY COLBERT Lt Col, [employer], MC, FS Family Physician/Flight Surgeon [address] [place] P) [phone] Extracted from:Title: [facility] [place] [place] Author: JJ SHORT, IDTRINH Date: 08/27/24 1. 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 Pt denies any SI/HI/IN at this time. Pt given MH resources if the need arises. MHA signed in ASIMS. PVUA, no further questions or concerns. TIFFANY Nesbitt- PHA Also completed PD MHA as pasted above. Extracted from:Title: WALK-IN BP Author: NINO STOCKTON Date: 12/29/23 1. Elevated blood pressure Reviewed BP which is WNL for JNC 8 goals. Cleared for deployment. [facility]. Maj Nino Stockton PA-C [facility] [address] [place], [place] Extracted from:Title: CSSP Author: PREET MUNOZ, EMT Date: 12/29/23 [facility] Current Visit No Results Found Extracted from:Title: Immunizations Author: TAHIR GRANDA, EMT Date: 12/04/23 measles/mumps/rubella virus vaccine: 0.5 mL (12/04/23 09:30:00) Diagnosis: Vaccination given Comment: Other status: M-M-R II; 0.5 mL, SubCutaneous, Injection, Vaccine, First Dose: 12/04/2023 09:30:00 MANUFACTURING LAB TECHNICIAN, 12/04/2023 09:30:00 MANUFACTURING LAB TECHNICIAN (Completed) by LIZZIE LYONS MD Imadm Prq Id Subq/Im Njxs 1 Vaccine [id number]; 12/04/2023 09:31:00 MANUFACTURING LAB TECHNICIAN (Completed) by LIZZIE LYONS MD End of Orders Extracted from:Title: Immunizations Author: TAHIR GRANDA, EMT Date: 10/25/23 Encounter has Screening Questions previously completed. Refer to screening questions for additional information of vaccination given and clearance. More information is also available in the Immunization Tab for patient's history of vaccinations. Closing Encounter for administrative completion. 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 Member is cleared for PHA and to participate in AF fitness program without restriction. See attached ANNUAL PERIODIC HEATLH ASSESSMENT note. Member denied having a splenectomy in the past. Available labs and radiology reports since last Annual PHA were reviewed and addressed if not addressed prior to this visit. Appointment was completed via telephone, and lasted 5-10 min. 10/07/2025 [id number] Functional Status Combined list of recent functional and cognitive assessments recorded at [facility] [employer] [facility] [employer] [facility] (VA).VA Functional [facility] Measurement (FIM) Scale: 1 = Total Assistance (Subject = 0% +), 2 = Maximal Assistance (Subject = 25% +), 3 = Moderate Assistance (Subject = 50% +), 4 = Minimal Assistance (Subject = 75% +), 5 = Supervision, 6 = Modified [facility] [place] (Device), 7 = Complete [facility] (Timely, Safely). Assessment Date/Time Source Assessment Type Assessment Skill Assessment Score Assessment Details No data available for this section
--- OUTSIDE RECORDS SUMMARY | 2025-10-06 22:13 | XMS_ITS ---
Author Organization Unknown ENCOUNTERS Encounter Performer Location Date Diagnosis Diagnosis Status Emergency [facility] [address] [place] [address] [id number] CHAS Pre Admit [facility] [address] [place] [address] [id number] CHAS Pre Admit [facility] [address] [place] [address] [id number] Emergency [facility] [address] [place] [address] [id number] CHAS *Note: Encounters from your own facility or health system may be excluded. Allergies, Adverse Reactions, Alerts Allergen Type Severity Identification Date Medications Name Date Quantity Days Supplied GPI Number
== END 2025-10-06 22:16 | disposition home or self-care (01) ==
LOC: ANHED 22:11
PROVIDERS: Student in an Organized Health Care Education/Training Program; Emergency Provider Physician Assistant
DX: U07.1 COVID-19 (principal); I10 Essential (primary) hypertension; E78.5 Hyperlipidemia, unspecified
CPT/HCPCS: 87637; 99283; A9270